=== PATIENT | male | born 1945 | race Caucasian/White ===

== ENCOUNTER → 2016-03-01 | Outpatient (CLI) | payer OTHER ==
[~2016-03-01] MED LIST: ASPEC325 PO; FRRG PO; GLC/500 PO; LISI-461 PO; MXZC25 PO; NAPR1TAB9 PO
[2016-03-01 17:45] LABS: BLOOD UREA NITROGEN 35 mg/dl (7-18); BUN/CREATININE RATIO 24.9 (10-20); CALCIUM 9.4 mg/dl (8.5-10.1); CARBON DIOXIDE 25 mmol/L (21-32); CHLORIDE 100 mmol/L (98-107); GLUCOSE 186 mg/dl (70-99); POTASSIUM 3.9 mmol/L (3.5-5.1); SODIUM 137 mmol/L (136-145)
[2016-03-02 05:52] LABS: ESTIMATED AVERAGE GLUCOSE 157 mg/dl; HA1C FLAG Normal (Normal)
== END | disposition home or self-care (01) ==
LOC: C.LABPVFM 11:00
PROVIDERS: ATTEND Family Medicine
DX: E11.9 Type 2 diabetes mellitus without complications (principal)

== ENCOUNTER → 2016-03-07 | Outpatient (CLI) | payer OTHER ==
[2016-03-07 12:19] LABS: BASO % 0.4 %; BASO ABS # 0.03 K/uL (0-0.2); COMPLETE YES; EOS % 0.7 %; HEMATOCRIT 41.8 % (42-52); IG% 0.3 %; LYMPH % 21.2 %; LYMPH ABS # 1.58 K/uL (1.2-3.4); MEAN CELL VOLUME 88.7 fL (80-100); MEAN CORPUSCULAR HGB CONC 34.9 g/dl (32-36); MEAN PLATELET VOLUME 9.9 fL (7.4-10.4); MONO % 7.8 %; NEUT % 69.6 %; PLATELET COUNT 347 K/uL (130-400); RED BLOOD COUNT 4.71 M/uL (4.7-6.1); WHITE BLOOD COUNT 7.44 K/uL (4.8-10.8)
[2016-03-07 12:47] LABS: RHEUMATOID FACTOR < 10.0 U/mL (0-15); URIC ACID 7.7 mg/dl (2.6-7.2)
== END | disposition home or self-care (01) ==
LOC: C.LABPVFM 10:10
PROVIDERS: ATTEND Nurse Practitioner
DX: M19.90 Unspecified osteoarthritis, unspecified site (principal)

== ENCOUNTER → 2017-01-08 | Outpatient (CLI) | payer OTHER ==
[2017-01-08 12:53] LABS: ESTIMATED AVERAGE GLUCOSE 177 mg/dl; HA1C FLAG Normal (Normal)
[2017-01-08 13:07] LABS: BLOOD UREA NITROGEN 20 mg/dl (7-18); BUN/CREATININE RATIO 17.2 (10-20); CARBON DIOXIDE 30 mmol/L (21-32); CHLORIDE 101 mmol/L (98-107); CHOLESTEROL 131 mg/dl (0-200); CREATININE 1.16 mg/dl (0.60-1.40); GLUCOSE 146 mg/dl (70-99); POTASSIUM 3.8 mmol/L (3.5-5.1); SODIUM 137 mmol/L (136-145)
[2017-01-08 13:10] LABS: CHOLESTEROL/HDL RATIO 2.6; HDL CHOLESTEROL 50 mg/dl; LDL CHOLESTEROL CALCULATED 61 mg/dl; TRIGLYCERIDES 99 mg/dl (0-150); VERY LOW DENSITY LIPOPROT CALC 20 mg/dl
== END | disposition home or self-care (01) ==
LOC: C.LABPVFM 07:42
PROVIDERS: ATTEND Nurse Practitioner
DX: E11.9 Type 2 diabetes mellitus without complications (principal); E78.00 Pure hypercholesterolemia, unspecified

== ENCOUNTER → 2017-07-05 | Outpatient (CLI) | payer OTHER ==
[2017-07-05 13:08] LABS: BLOOD UREA NITROGEN 13 mg/dl (7-18); CALCIUM 8.8 mg/dl (8.5-10.1); CARBON DIOXIDE 30 mmol/L (21-32); GLUCOSE 261 mg/dl (70-99); POTASSIUM 3.9 mmol/L (3.5-5.1); SODIUM 138 mmol/L (136-145)
[2017-07-05 13:25] LABS: HEMOGLOBIN A1C 8.5 % (4.5-5.6)
== END | disposition home or self-care (01) ==
LOC: C.LABPVFM 08:49
PROVIDERS: ATTEND Nurse Practitioner
DX: E11.9 Type 2 diabetes mellitus without complications (principal)

== ENCOUNTER 2018-11-26 18:24 | Observation (INO) ==
[2018-11-26] MEDS ORDERED: ASPIRIN CHEW 324 MG PO STA (18:47)
--- NOTE | 2018-11-26 18:47 | Emergency Department Note ---
Entered by Alona Jacques acting as a scribe for Simon Ackerman DO History of Present Illness General Chief complaint: Chest Pain Stated complaint: CHEST PAIN, BACK PAIN Time Seen by Provider: 11/26/18 18:30 Source: patient and family History of Present Illness Onset (ago): day(s) (2) Location: chest and left Radiation: back and other (left shoulder and left arm) Pain Consistency: + intermittent Maximum Pain Intensity: 4 Exacerbated By: + movement (walking) and + other (lying on his side) Associated symptoms: + denies other symptoms, + shortness of breath (with exertion) and + other (decreased sleep, abdominal pain, diarrhea) The patient is a 73 year old male who presents to the Emergency Room with complaints of intermittent left-sided chest pain beginning two days ago. The patient states the pain radiates into his left shoulder, left arm and back. He notes the pain is worse with walking, and lying on his side. He denies any similarity between his current pain and pain with his previous cardiac problems. The patient reports decreased sleep the past few nights, and shortness of breath with exertion. He also reports abdominal pain and diarrhea for the past several days. The patient's family member reports a history of an NM one year ago. She notes stents were placed at the time. The patient's family member states an EKG following the NM showed that the patient's heart was only functioning at approximately 30 percent. She also notes a recent change in the patient's medication one month ago intended to relieve the shortness of breath, but no change has been noted. 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 Jimenez. Home Medications Home Medications Medication Instructions Recorded Confirmed Type aspirin [Ecotrin Low Strength] 81 mg PO QAM #90 tab 12/29/17 11/26/18 Rx atorvastatin [Lipitor] 80 mg PO DAILY #30 tab 12/29/17 11/26/18 Rx metoprolol succinate [Toprol XL] 100 mg PO DAILY #30 tab 12/29/17 11/26/18 Rx nitroglycerin [Nitrostat] 0.4 mg SUBLINGUAL Q5M PRN #20 tab 12/29/17 11/26/18 Rx furosemide 20 mg tablet 20 mg PO DAILY #30 tab 07/23/18 11/26/18 Rx lisinopril 10 mg tablet 10 mg PO DAILY #90 tab 07/23/18 11/26/18 Rx metformin ER 500 mg 1,000 mg PO BID #360 tab 08/27/18 11/26/18 Rx tablet,extended release 24 hr sitagliptin 50 mg tablet 50 mg PO DAILY #90 tab 09/26/18 11/26/18 Rx clopidogrel 75 mg tablet 75 mg PO DAILY #90 tab 10/14/18 11/26/18 Rx triamcinolone acetonide 1 appln TOP BID PRN 11/26/18 11/26/18 History Allergies Allergy/AdvReac Type Severity Reaction Status Date / Time No Known Allergies Allergy Verified 10/14/18 08:56 Past Med/Surg History Medical History Multi-vessel coronary artery stenosis (Chronic) NSVT (nonsustained ventricular tachycardia) (Chronic) Ischemic cardiomyopathy (Chronic) Hypertension (Chronic) Diabetes (Chronic) ST elevation (STEMI) myocardial infarction (Resolved) Diabetes (Chronic) HTN (hypertension) (Chronic) Acute systolic CHF (congestive heart failure) (Resolved) Surgical History History of total left hip arthroplasty Family History Father Myocardial infarction Social History Preferred Language: Kazakh Communication Ability: Effective Visual Impairment: No Limitations Hearing Ability: Normal Clinical Quality Manager Required: No Beliefs That Will Affect Care: None Current Living Situation: Spouse Feels Safe at Home: Yes Smoking Status: Never smoker Hx Alcohol Use: No Hx Substance Use: No Review of Systems See HPI for pertinent positives & negatives. and A total of 10 systems reviewed and were otherwise negative Physical Exam Vital Signs Vital Signs - 24 hr 11/26/18 18:27 11/26/18 18:59 11/26/18 20:51 Temperature 36.8 C Temperature Source Oral Sepsis Recent Fever Within 48 Hours No Sepsis New/Unexplained Change in Mental Status No Sepsis Action Taken by Nursing No Action Required Pulse Rate 68 Pulse Rate [Apical] 75 70 Respiratory Rate 20 18 18 Respiratory Effort / Characteristics Spontaneous Blood Pressure 113/70 Blood Pressure [Left Arm] 123/80 110/76 Blood Pressure Mean 84 Blood Pressure Mean [Left Arm] 94 87 Blood Pressure Position Sitting Pulse Oximetry 100 97 93 Oxygen Delivery Method Room Air Room Air Room Air CONSTITUTIONAL/VITAL SIGNS: Reviewed / noted above. GENERAL: Non-toxic in appearance. INTEGUMENTARY: Warm, dry, and [place]. HEAD: Normocephalic. EYES: without scleral icterus or trauma. ENT/OROPHARYNX: clear and moist. LYMPHADENOPATHY/NECK: Is supple without lymphadenopathy or meningismus. RESPIRATORY: Lungs clear and equal. CARDIOVASCULAR: Regular rate and rhythm. GI/ABDOMEN: Soft and nontender. No organomegaly or pulsatile mass. No rebound or guarding. Normal bowel sounds. EXTREMITIES: Warm and well perfused. BACK: No CVA tenderness. NEUROLOGICAL: Intact without focal deficits. PSYCHIATRIC: normal affect. MUSCULOSKELETAL: Normally developed with good muscle tone. Course 1834: Past medical records reviewed. The patient was evaluated in room C11B. A complete history and physical exam was performed. 2000: Upon reevaluation, I discussed findings and results with the patient and his family. They verbalized agreement of the treatment plan. I spoke with Dr. Nieto of the [facility] Hospitalist Service. The patient will be evaluated for further management and care. Administered Medications Discontinued Medications Aspirin (Aspirin) 324 mg PO NOW STA Stop: 11/26/18 18:48 Last Admin: 11/26/18 18:58 Dose: 324 mg Documented by: [id number] Medical Decision Making Differential Diagnosis Differential diagnoses includes but is not limited to acute coronary syndrome, myocardial infarction, pericarditis, pulmonary embolus, aortic dissection, pneumonia, pneumothorax, musculoskeletal, shingles, esophageal. Medical Records Attestation: I reviewed the patient's medical records. Home Medications Current Medication List: was personally reviewed by me Laboratory Data Attestation: I reviewed the patient's lab results. Result diagrams: 11/26/18 18:42 11/26/18 18:42 Lab Results 11/26/18 11/26/18 11/26/18 Range/Units 18:42 18:42 18:42 WBC 8.16 (4.8-10.8) K/uL RBC 3.93 L (4.7-6.1) M/uL Hgb 11.2 L (14.0-18.0) g/dL Hct 33.5 L (42-52) % MCV 85.2 (80-100) fL MCH 28.5 (25-34) pg MCHC 33.4 (32-36) g/dL RDW Std Deviation 50.0 H (36.4-46.3) fL RDW Coeff of Kimberlee 15.8 H (11.5-14.5) % Plt Count 200 (130-400) K/uL MPV 10.7 H (7.4-10.4) fL Immature Gran % (Auto) 0.2 % Neut % (Auto) 72.0 % Lymph % (Auto) 15.6 % [place] % (Auto) 11.6 % Eos % (Auto) 0.4 % Baso % (Auto) 0.2 % Immature Gran # (Auto) 0.02 (0.00-0.02) K/uL Neut # (Auto) 5.87 (1.4-6.5) K/uL Lymph # (Auto) 1.27 (1.2-3.4) K/uL [place] # (Auto) 0.95 H (0.11-0.59) K/uL Eos # (Auto) 0.03 (0-0.5) K/uL Baso # (Auto) 0.02 (0-0.2) K/uL PT 13.5 H (9.0-12.0) Seconds INR 1.3 H (0.9-1.1) APTT 30.5 (21.0-31.0) Seconds PTT Ratio 1.1 Sodium 136 (136-145) mmol/L Potassium 3.8 (3.5-5.1) mmol/L Chloride 102 (98-107) mmol/L Carbon Dioxide 23 (21-32) mmol/L Anion Gap 11.0 (3-11) BUN 19 H (7-18) mg/dl Creatinine 0.98 (0.6-1.4) mg/dl Est Cr Clr Drug Dosing Not Reportable Est GFR ( Amer) 87.1 Est GFR (Non-Af Amer) 75.1 BUN/Creatinine Ratio 19.8 (10-20) Glucose 126 H (70-99) mg/dl Calcium 8.7 (8.5-10.1) mg/dl Total Bilirubin 0.9 (0.2-1) mg/dl AST 18 (15-37) U/L ALT 19 (12-78) U/L Alkaline Phosphatase 113 (45-117) U/L Troponin I 0.017 (0-0.045) ng/ml Total Protein 8.0 (6.4-8.2) gm/dl Albumin 3.3 L (3.4-5.0) gm/dl Globulin 4.7 H (2.5-4.0) gm/dl Albumin/Globulin Ratio 0.7 L (0.9-2) Lipase 202 (73-393) U/L Imaging Data Radiologist's Impression: Radiology results as stated below per my review and the radiologist's interpretation: XR chest 1V portable CLINICAL HISTORY: 73 years-old Male presenting with Chest Pain. TECHNIQUE: Portable upright AP view of the chest was obtained. COMPARISON: 12/26/2017. FINDINGS: Atherosclerosis of the aortic arch. Cardiac silhouette enlarged. Pulmonary vascular prominence is unchanged from prior. Increased right basilar opacity. No large pleural effusion or pneumothorax. Degenerative changes of the thoracic spine. Degenerative changes of the bilateral shoulders. Osteopenia suspected. Upper abdomen normal. IMPRESSION: 1. Right basilar opacity concerning for pneumonia or atelectasis. 2. Cardiomegaly. No advanced congestive change or pulmonary edema. Electronically signed by: Rudy Jackson M.D. 11/26/2018 7:28 PM ECG Data Attestation: I personally reviewed and interpreted this ECG as follows: Indication: chest pain Rate (beats per minute): 76 Rhythm: sinus rhythm Findings: + T-wave inversion (Lateral); no ST elevation Comparison ECG Date: from (12/28/2017) Change: no significant change Blood Pressure Blood Pressure Findings: Elevated blood pressure Blood Pressure Disposition: further management by hospitalist MILAGROS Mahoney This is a 73-year-old male who presents to the ED with a chief complaint of chest discomfort in the left chest that radiates into the back and left arm/shoulder. He also reports associated shortness of breath. He has had the s ymptoms for couple of days. The patient states that his symptoms seem to worsen with exertion and improved with rest. He states that he has also had a little nausea recently and a little diarrhea. He has history of NM, diabetes, A. fib and CAD. The patient also has ischemic cardiomyopathy with a decreased EF. The patient on my exam has normal vital signs. He is in no distress. He states that he is currently not having symptoms. The patient's EKG shows a sinus rhythm at a rate of 76 with some T wave inversions that appears similar to a previous EKG. CBC and complete metabolic panel were unremarkable. Troponin was 0.017. This is normal. Lipase was negative. Chest x-ray reveals a right basilar atelectasis versus pneumonia. He clinically does not have any symptoms suggestive of pneumonia. His symptoms are most consistent with unstable angina. Because of his past history and comorbidities, the patient will be seen by the hospitalist for further evaluation and care. He was given aspirin p.o. here. Impression & Plan Unstable angina pectoris Discharge Plan Visit Data Chief Complaint: Chest Pain Stated Complaint: CHEST PAIN, BACK PAIN ED Provider: Simon Ackerman Discharge Problem: Unstable angina pectoris Patient Disposition: Being Evaluated by Hospitalist Condition: Good Forms Stand Alone Forms: Call Back Authorization, [facility], Important Visit Information Prescriptions Prescriptions: No Action metformin 500 mg tablet extended release 24 hr 1,000 mg PO BID Qty: 360 RF: 1 Januvia 50 mg tablet 50 mg PO DAILY Qty: 90 RF: 3 clopidogrel 75 mg tablet 75 mg PO DAILY Qty: 90 RF: 3 furosemide 20 mg tablet 20 mg PO DAILY Qty: 30 RF: 0 lisinopril 10 mg tablet 10 mg PO DAILY Qty: 90 RF: 0 nitroglycerin [Nitrostat] 0.4 mg Tablet, Sublingual 0.4 mg Sublingual Q5M PRN (Reason: chest pain) Qty: 20 RF: 0 aspirin [Ecotrin Low Strength] 81 mg Tablet,Delayed Release (Dr/Ec) 81 mg PO QAM Qty: 90 RF: 3 metoprolol succinate [Toprol XL] 100 mg tablet extended release 24 hr 100 mg PO DAILY Qty: 30 RF: 5 atorvastatin [Lipitor] 80 mg tablet 80 mg PO DAILY Qty: 30 RF: 5 triamcinolone acetonide 0.1 % ointment 1 appln TOP BID PRN (Reason: BREAK OUT) RF: 0 Referrals Referrals: Aidee Gomez CRNP [Primary Care Provider] - The scribe's documentation has been prepared under my direction and personally reviewed by me in its entirety. I confirm that the note above accurately reflec ts all work, treatment, procedures, and medical decision making performed by me.
[2018-11-26 18:56] LABS: Basophils # (auto) 0.02 K/uL (0-0.2); Basophils % (auto) 0.2 %; Eosinophils # (auto) 0.03 K/uL (0-0.5); Eosinophils % (auto) 0.4 %; Hematocrit (blood only) 33.5 % (42-52); Hemoglobin 11.2 g/dL (14.0-18.0); Immature Granulocytes # (auto) 0.02 K/uL (0.00-0.02); Immature Granulocytes % (auto) 0.2 %; Lymphocytes # (auto) 1.27 K/uL (1.2-3.4); Lymphocytes % (auto) 15.6 %; Mean Corpuscular Hemoglobin 28.5 pg (25-34); Mean Corpuscular Hgb Conc 33.4 g/dL (32-36); Mean Corpuscular Volume 85.2 fL (80-100); Mean Platelet Volume 10.7 fL (7.4-10.4); Monocytes # (auto) 0.95 K/uL (0.11-0.59); Monocytes % (auto) 11.6 %; Neutrophils # (auto) 5.87 K/uL (1.4-6.5); Platelet Count 200 K/uL (130-400); RDW Coefficient of Variation 15.8 % (11.5-14.5); Red Blood Count 3.93 M/uL (4.7-6.1); White Blood Count 8.16 K/uL (4.8-10.8)
[2018-11-26 19:14] LABS: INR 1.3 (0.9-1.1); Partial Thromboplastin Ratio 1.1; Partial Thromboplastin Time 30.5 Seconds (21.0-31.0); Prothrombin Time 13.5 Seconds (9.0-12.0)
[2018-11-26 19:15] LABS: Alanine Aminotransferase 19 U/L (12-78); Albumin Level 3.3 gm/dl (3.4-5.0); Aspartate Aminotransferase 18 U/L (15-37); BUN Creatinine Ratio 19.8 (10-20); Blood Urea Nitrogen 19 mg/dl (7-18); Calcium 8.7 mg/dl (8.5-10.1); Carbon Dioxide 23 mmol/L (21-32); Chloride 102 mmol/L (98-107); Est GFR (African American) 87.1; Est GFR (Non-African American) 75.1; Glucose 126 mg/dl (70-99); Lipase 202 U/L (73-393); Potassium 3.8 mmol/L (3.5-5.1); Sodium 136 mmol/L (136-145)
[2018-11-26 19:20] LABS: Albumin Globulin Ratio 0.7 (0.9-2); Alkaline Phosphatase 113 U/L (45-117); Bilirubin,Total 0.9 mg/dl (0.2-1); Globulin 4.7 gm/dl (2.5-4.0); Troponin I 0.017 ng/ml (0-0.045)
--- NOTE | 2018-11-26 19:29 | XRay Report ---
XR chest 1V portable CLINICAL HISTORY: 73 years-old Male presenting with Chest Pain. TECHNIQUE: Portable upright AP view of the chest was obtained. COMPARISON: 12/26/2017. FINDINGS: Atherosclerosis of the aortic arch. Cardiac silhouette enlarged. Pulmonary vascular prominence is unc hanged from prior. Increased right basilar opacity. No large pleural effusion or pneumothorax. Degene rative changes of the thoracic spine. Degenerative changes of the bilateral shoulders. Osteopenia devyn pected. Upper abdomen normal. IMPRESSION: 1. Right basilar opacity concerning for pneumonia or atelectasis. 2. Cardiomegaly. No advanced congestive change or pulmonary edema. Electronically signed by: Rudy Jackson M.D. 11/26/2018 7:28 PM
[2018-11-26] MEDS ORDERED: NITROGLYCERIN SL 0.4 MG/TAB TAB SL PRN (21:30)
[2018-11-26] MEDS ORDERED: ONDANSETRON INJ 2 MG/ML 2 ML VIAL IV PRN (21:30)
[2018-11-26] MEDS ORDERED: ACETAMINOPHEN 325 MG TAB PO PRN (21:30)
[2018-11-26] MEDS ORDERED: PATIENT'S HEIGHT AND/OR WEIGHT NEEDED SCH (21:45)
[2018-11-26] MEDS ORDERED: ENOXAPARIN INJ 40 MG/0.4 ML SYR SQ SCH (22:00)
[2018-11-26] MEDS ORDERED: GLUCOSE 40% GEL 15 GM TUBE PO PRN (23:12)
[2018-11-26] MEDS ORDERED: GLUCOSE 10 TABS/TUBE PO PRN (23:12)
[2018-11-26] MEDS ORDERED: CARBOHYDRATES FOR HYPOGLYCEMIA PO PRN (23:12)
[2018-11-26] MEDS ORDERED: GLUCAGON FOR INJ 1 MG VIAL SQ PRN (23:12)
[2018-11-26] MEDS ORDERED: DEXTROSE 50% 50 ML SYRINGE IV PRN (23:12)
--- NOTE | 2018-11-26 23:39 | History & Physical Report ---
Date of Service November 26, 2018 Assessment & Plan (1) Chest pain: I suspect this is musculoskeletal chest pain as deep breathing and laying on his side worsens the pain. However given his cardiac history it is reasonable to rule and and acquire cardiology evaluation. Continue aspirin and Plavix. serial trops DVT prophylaxis = SCDs and Lovenox. (2) CAD (coronary artery disease): He follows with [facility] cardiology (3) Type II diabetes mellitus: Metformin will be held in event of requiring dye study. I will cover highs with sliding scale (4) Ischemic cardiomyopathy: EF is noted to be 30% (5) Hypertension: Continue home medications. History of Present Illness 73 y/o male presented to the ED with a 2 day history of left sided chest pain that radiated around the side to the posterior shoulder. It has not been associated with exertion. Deep breath seems to make it worse briefly. No diaphoresis, cough, or change in his chronic SOB. He has not been doing anything strenuous or repetitive with his upper extremities. On a separate issue, he has had intermittent abdominal pain and diarrhea over a few days. No nausea or vomiting. No fever or chills. He follows with [facility] cardiology as outpatient. . Primary Care Provider: VIVIAN English Allergies Allergy/AdvReac Type Severity Reaction Status Date / Time No Known Allergies Allergy Verified 11/26/18 21:11 Home Medications Home Medications Medication Instructions Recorded Confirmed Type aspirin [Ecotrin Low Strength] 81 mg PO QAM #90 tab 12/29/17 11/26/18 Rx atorvastatin [Lipitor] 80 mg PO DAILY #30 tab 12/29/17 11/26/18 Rx metoprolol succinate [Toprol XL] 100 mg PO DAILY #30 tab 12/29/17 11/26/18 Rx nitroglycerin [Nitrostat] 0.4 mg SUBLINGUAL Q5M PRN #20 tab 12/29/17 11/26/18 Rx furosemide 20 mg tablet 20 mg PO DAILY #30 tab 07/23/18 11/26/18 Rx lisinopril 10 mg tablet 10 mg PO DAILY #90 tab 07/23/18 11/26/18 Rx metformin ER 500 mg 1,000 mg PO BID #360 tab 08/27/18 11/26/18 Rx tablet,extended release 24 hr clopidogrel 75 mg tablet 75 mg PO DAILY #90 tab 10/14/18 11/26/18 Rx triamcinolone acetonide 1 appln TOP BID PRN 11/26/18 11/26/18 History Past Med/Surg History Medical History Multi-vessel coronary artery stenosis (Chronic) NSVT (nonsustained ventricular tachycardia) (Chronic) Ischemic cardiomyopathy (Chronic) Hypertension (Chronic) Diabetes (Chronic) ST elevation (STEMI) myocardial infarction (Resolved) Diabetes (Chronic) HTN (hypertension) (Chronic) Acute systolic CHF (congestive heart failure) (Resolved) Surgical History History of total left hip arthroplasty Family History Father Myocardial infarction Social History Preferred Language: Lao Communication Ability: Effective Visual Impairment: No Limitations Hearing Ability: Normal Tag Press Operator Required: No Beliefs That Will Affect Care: None Current Living Situation: Spouse Other Information That Helps Us Care for You: No Feels Safe at Home: Yes Safety Concerns: Feels Safe At This Time Smoking Status: Never smoker Do You Dip or Chew Tobacco: No ; Second Hand E xposure: No ; Tobacco Cessation Education Requested by Patient: No Hx Alcohol Use: No Hx Substance Use: No Review of Systems Review of Systems: NEEDS EDITING Constitutional- no fever; no weight loss Eyes- no acute visual changes ENT- no sinus drainage; no pharyngitis Pulmonary- no cough, no wheezing, no change in chronic shortness of breath Cardiac- See HPI GI- no nausea, no vomiting, no melena, no hematochezia - no dysuria, no hematuria Musculoskeletal- no arthralgias, no myalgias Derm- no rashes, no new skin lesions. Hematologic- no unusual bruising, no unusual bleeding Lymphatics- no adenopathy Endocrine- no polyuria or polydipsia; no heat or cold intolerance Neuro- no headaches, no focal neurologic symptoms Psych- no anxiety, no depression Physical Exam Physical Exam: NEEDS EDITING General- adult male, NAD. Head- atraumatic Eyes- PERRL, EOMI, anicteric ENT- oropharynx clear Neck- supple, no JVD, no adenopathy, no thyromegaly. Lungs- clear to auscultation no rales, rhonchi, or wheezes. Heart- regular rhythm; no murmur, no gallop, no rub appreciated Abdomen- normal bowel sounds, soft, nontender. Extremities- no pretibial edema, no calf tenderness; peripheral pulses intact Neuro- alert, oriented x 3; PERRL, EOMI; rock worker II-XII grossly intact, Non-focal. Skin- warm & dry, No rash along left chest dermatome. Results & Data Vital Signs (Past 12 Hours) Vital Signs Temp Pulse Pulse Resp BP BP Pulse Ox 11/26/18 21:18 36.6 C 74 20 127/86 99 11/26/18 20:51 70 18 110/76 93 11/26/18 18:59 75 18 123/80 97 11/26/18 18:27 36.8 C 68 20 113/70 100 Laboratory Results Laboratory Results WBC 8.16 K/uL (4.8-10.8) 11/26/18 18:42 RBC 3.93 M/uL (4.7-6.1) L 11/26/18 18:42 Hgb 11.2 g/dL (14.0-18.0) L 11/26/18 18:42 Hct 33.5 % (42-52) L 11/26/18 18:42 MCV 85.2 fL (80-100) 11/26/18 18:42 MCH 28.5 pg (25-34) 11/26/18 18:42 MCHC 33.4 g/dL (32-36) 11/26/18 18:42 RDW Std Deviation 50.0 fL (36.4-46.3) H 11/26/18 18:42 RDW Coeff of Kimberlee 15.8 % (11.5-14.5) H 11/26/18 18:42 Plt Count 200 K/uL (130-400) 11/26/18 18:42 MPV 10.7 fL (7.4-10.4) H 11/26/18 18:42 Immature Gran % (Auto) 0.2 % 11/26/18 18:42 Neut % (Auto) 72.0 % 11/26/18 18:42 Lymph % (Auto) 15.6 % 11/26/18 18:42 [place] % (Auto) 11.6 % 11/26/18 18:42 Eos % (Auto) 0.4 % 11/26/18 18:42 Baso % (Auto) 0.2 % 11/26/18 18:42 Immature Gran # (Auto) 0.02 K/uL (0.00-0.02) 11/26/18 18:42 Neut # (Auto) 5.87 K/uL (1.4-6.5) 11/26/18 18:42 Lymph # (Auto) 1.27 K/uL (1.2-3.4) 11/26/18 18:42 [place] # (Auto) 0.95 K/uL (0.11-0.59) H 11/26/18 18:42 Eos # (Auto) 0.03 K/uL (0-0.5) 11/26/18 18:42 Baso # (Auto) 0.02 K/uL (0-0.2) 11/26/18 18:42 PT 13.5 Seconds (9.0-12.0) H 11/26/18 18:42 INR 1.3 (0.9-1.1) H 11/26/18 18:42 APTT 30.5 Seconds (21.0-31.0) 11/26/18 18:42 PTT Ratio 1.1 11/26/18 18:42 Sodium 136 mmol/L (136-145) 11/26/18 18:42 Potassium 3.8 mmol/L (3.5-5.1) 11/26/18 18:42 Chloride 102 mmol/L (98-107) 11/26/18 18:42 Carbon Dioxide 23 mmol/L (21-32) 11/26/18 18:42 Anion Gap 11.0 (3-11) 11/26/18 18:42 BUN 19 mg/dl (7-18) H 11/26/18 18:42 Creatinine 0.98 mg/dl (0.6-1.4) 11/26/18 18:42 Est Cr Clr Drug Dosing Not Reportable 11/26/18 18:42 Est GFR ( Amer) 87.1 11/26/18 18:42 Est GFR (Non-Af Amer) 75.1 11/26/18 18:42 BUN/Creatinine Ratio 19.8 (10-20) 11/26/18 18:42 Glucose 126 mg/dl (70-99) H 11/26/18 18:42 POC Glucose 119 (70-99) H 11/26/18 21:52 Calcium 8.7 mg/dl (8.5-10.1) 11/26/18 18:42 Total Bilirubin 0.9 mg/dl (0.2-1) 11/26/18 18:42 AST 18 U/L (15-37) 11/26/18 18:42 ALT 19 U/L (12-78) 11/26/18 18:42 Alkaline Phosphatase 113 U/L (45-117) 11/26/18 18:42 Troponin I 0.017 ng/ml (0-0.045) 11/26/18 18:42 Total Protein 8.0 gm/dl (6.4-8.2) 11/26/18 18:42 Albumin 3.3 gm/dl (3.4-5.0) L 11/26/18 18:42 Globulin 4.7 gm/dl (2.5-4.0) H 11/26/18 18:42 Albumin/Globulin Ratio 0.7 (0.9-2) L 11/26/18 18:42 Lipase 202 U/L (73-393) 11/26/18 18:42 Code Status & VTE Plan VTE Prophylaxis Plan VTE Prophylaxis will be ordered: Yes PG Care Time/CCT Total # of Minutes Spent Total Time Spent: 65 Total Time Spent with Patient: Total time spent is greater than 50% in coordination of care (as documented) at patient's floor/unit and/or counseling patient: (1) Hypertension Hypertension type: essential hypertension Qualified Code(s): I10 - Essential (primary) hypertension
[2018-11-27 04:37] LABS: Hematocrit (blood only) 33.7 % (42-52); Hemoglobin 11.4 g/dL (14.0-18.0); Mean Corpuscular Hemoglobin 29.2 pg (25-34); Mean Corpuscular Hgb Conc 33.8 g/dL (32-36); Mean Corpuscular Volume 86.4 fL (80-100); Mean Platelet Volume 10.5 fL (7.4-10.4); Platelet Count 175 K/uL (130-400); RDW Coefficient of Variation 15.8 % (11.5-14.5); RDW Standard Deviation 50.2 fL (36.4-46.3); White Blood Count 7.23 K/uL (4.8-10.8)
[2018-11-27 04:54] LABS: BUN Creatinine Ratio 20.2 (10-20); Calcium 8.4 mg/dl (8.5-10.1); Creatinine Clr Calc Pharmacy 64.5 ml/min; Est GFR (Non-African American) 74.2; Magnesium 1.7 mg/dl (1.8-2.4); Potassium 3.4 mmol/L (3.5-5.1)
[2018-11-27 04:59] LABS: Troponin I 0.02 ng/ml (0-0.045)
[2018-11-27] MEDS: INSULIN ASPART 100 UNITS/ML 3 ML PEN SC SCH ×3 (08:00→18:00)
[2018-11-27] MEDS ORDERED: ASPIRIN 81 MG ECTAB PO SCH (09:00)
[2018-11-27] MEDS ORDERED: FUROSEMIDE 20 MG TAB PO SCH (09:00)
[2018-11-27] MEDS ORDERED: lisinopriL 10 MG TAB PO SCH (09:00)
[2018-11-27] MEDS ORDERED: ATORVASTATIN 40 MG TAB PO SCH (09:00)
[2018-11-27] MEDS ORDERED: METOPROLOL SUCC 50MG EXT REL TAB PO SCH (09:00)
[2018-11-27] MEDS ORDERED: CLOPIDOGREL BISULFATE 75 MG TAB PO SCH (09:00)
[2018-11-27] MEDS: POTASSIUM CHLORIDE 20 MEQ TABCR PO SCH ×2 (09:02→10:38)
--- NOTE | 2018-11-27 09:36 | Cardiology Consultation ---
Date of Consultation November 27, 2018 Assessment & Plan (1) Chest pain: 2. Multivessel coronary artery disease post anterior NV prior PCI, known [employer] of RCA 3. Ischemic cardiomyopathy/chronic systolic heart failureEF 30 to 35% 4. Type 2 diabetes Patient here with atypical chest pain. No evidence of coronary ischemia. Suspicion for ACS is very low and do not feel additional cardiac testing is necessary at this time. On exam appears well-perfused without significant congestion, continue current maintenance diuretics. From a cardiac standpoint okay for discharge when other medical issues resolved. Home on his DAPT with aspirin, clopidogrel. Continue GDMT with Toprol-XL, lisinopril. Routine scheduled cardiology follow-up. Thank you for allowing us to participate in the care of this patient. Please contact with any questions. History of Present Illness Attending Physician: Sophia Mcintosh, History of Present Illness Mr. Cedeno is a very pleasant 73-year-old man with a history of coronary artery disease post anterior STEMI 12/2017 known to me from prior hospitalization outpatient setting here with chest pain. Prior anterior NV treated with primary PCI with 2 GEOVANNA to ostial to mid LAD with angioplasty to diagonal. Noted that time to have RCA [employer]. Has persistent severe LV dysfunction with EF 30 to 35% and inferior wall motion of normality. Closely followed for chronic systolic heart failure on modest diuretics. Previously declined ICD. 2 days prior to admission developed central chest pain radiating around left side to left shoulder. Began at rest at night. Pain positional worse with lying flat and with coughing. Pain largely constant for more than 24 hours before presenting to ED. Pain different than what previously experienced with NV, the pain more diffuse across his chest. No change to chronic shortness of breath (baseline NYHA class II equivalent symptoms). Denies fevers, chills. Does have nonproductive cough. No new lower extremity swelling, orthopnea. Weight stable from last visit. On admission chest x-ray with questionable right basilar opacity atelectasis versus pneumonia. EKG unchanged with sinus rhythm, lateral T wave inversions and prior anterior infarct. Troponin negative x2. Telemetry unremarkable. Allergies Allergy/AdvReac Type Severity Reaction Status Date / Time No Known Allergies Allergy Verified 11/26/18 21:11 Home Medications Home Medications Medication Instructions Recorded Confirmed Type aspirin [Ecotrin Low Strength] 81 mg PO QAM #90 tab 12/29/17 11/26/18 Rx atorvastatin [Lipitor] 80 mg PO DAILY #30 tab 12/29/17 11/26/18 Rx metoprolol succinate [Toprol XL] 100 mg PO DAILY #30 tab 12/29/17 11/26/18 Rx nitroglycerin [Nitrostat] 0.4 mg SUBLINGUAL Q5M PRN #20 tab 12/29/17 11/26/18 Rx furosemide 20 mg tablet 20 mg PO DAILY #30 tab 07/23/18 11/26/18 Rx lisinopril 10 mg tablet 10 mg PO DAILY #90 tab 07/23/18 11/26/18 Rx metformin ER 500 mg 1,000 mg PO BID #360 tab 08/27/18 11/26/18 Rx tablet,extended release 24 hr clopidogrel 75 mg tablet 75 mg PO DAILY #90 tab 10/14/18 11/26/18 Rx triamcinolone acetonide 1 appln TOP BID PRN 11/26/18 11/26/18 History Patient History Medical History Multi-vessel coronary artery stenosis (Chronic) NSVT (nonsustained ventricular tachycardia) (Chronic) Ischemic cardiomyopathy (Chronic) Hypertension (Chronic) Diabetes (Chronic) ST elevation (STEMI) myocardial infarction (Resolved) Diabetes (Chronic) HTN (hypertension) (Chronic) Acute systolic CHF (congestive heart failure) (Resolved) Surgical History History of total left hip arthroplasty Family History Father Myocardial infarction Social History Preferred Language: Algerian Communication Ability: Effective Visual Impairment: No Limitations Hearing Ability: Normal [employer] Required: No Beliefs That Will Affect Care: None Current Living Situation: Spouse Other Information That Helps Us Care for You: No Feels Safe at Home: Yes Safety Concerns: Feels Safe At This Time Smoking Status: Never smoker Do You Dip or Chew Tobacco: No ; Second Hand Exposure: No ; Tobacco Cessation Education Requested by Patient: No Hx Alcohol Use: No Hx Substance Use: No Review of Systems Review of Systems: All systems reviewed & are unremarkable except as noted in HPI & below Physical Exam Physical Exam: General: Comfortable, no acute distress Eyes: Sclerae anicteric, extraocular movements intact HENT: Oropharynx clear mucous membranes moist Neck: Normal carotid upstrokes, no bruits. No JVD. Lungs: Minimal crackles at right base otherwise clear, no wheezes Cardiac: Regular rate and rhythm, no murmurs Vascular: 2+ radial, DP and PT pulses. Abdomen: Soft, nontender, nondistended, positive bowel sounds. Extremities: Well perfused, no peripheral edema Skin: No rashes or lesions. Neuro: Nonfocal Psych: Alert orient x3, normal affect and mood Results & Data Vital Signs (Past 12 Hours) Vital Signs Temp Pulse Pulse Resp BP Pulse Ox 11/27/18 08:26 98.6 F 94 H 18 144/95 H 95 11/27/18 08:00 86 11/27/18 03:25 97.7 F 82 19 151/98 H 94 11/26/18 23:25 98.2 F 71 18 117/76 95 PG Care Time/CCT Total # of Minutes Spent Total Time Spent with Patient: Total time spent is greater than 50% in coordination of care (as documented) at patient's floor/unit and/or counseling patient:
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
== END 2018-11-27 18:41 | disposition home or self-care (01) ==
LOC: ED 18:24 → 2S 18:24 → SUATTDRO 20:34 → 2S 21:10

== ENCOUNTER 2019-05-02 15:20 | Inpatient (IN) ==
[2019-05-02] MEDS ORDERED: ALBUT/IPRATROP 3MG/0.5MG NEB 3 ML VIAL NEB STA (16:20)
--- NOTE | 2019-05-02 16:50 | Emergency Department Note ---
History of Present Illness General Chief complaint: Shortness of Breath/Dyspnea Stated complaint: SOB,COUGH,DOC REFERRED Time Seen by Provider: 05/02/19 16:05 Source: patient Mode of arrival: ambulatory Limitations: no limitations History of Present Illness Provider complaint: Shortness of breath Onset (ago): week(s) Location: chest Radiation: non-radiation Severity: mild Pain Consistency: + constant Maximum Pain Intensity: 1 Current Pain Intensity: 0 Quality: + other (tightness) Relieved By: + none Exacerbated By: + movement Associated symptoms: + cough, + shortness of breath and + weakness; no nausea/vomiting Treatments prior to arrival: none The patient is a pleasant 74-year-old gentleman with a past medical history of CAD, diabetes, A. fib, ischemic cardiomyopathy with EF of 30% who presents emergency department with ongoing shortness of breath for the past several weeks with question of increased weight gain. Patient reports possible weight gain. He denies fevers or chills. He does report mild congestion with sputum production. He denies any recent travel. He denies nausea, vomiting, diarrhea. Home Medications Home Medications Medication Instructions Recorded Confirmed Type aspirin [Ecotrin Low Strength] 81 mg PO QAM #90 tab 12/29/17 05/02/19 Rx nitroglycerin [Nitrostat] 0.4 mg SUBLINGUAL Q5M PRN #20 tab 12/29/17 05/02/19 Rx clopidogrel 75 mg tablet 75 mg PO DAILY #90 tab 10/14/18 05/02/19 Rx atorvastatin 80 mg tablet 80 mg PO DAILY #90 tab 01/01/19 05/02/19 Rx metoprolol succinate 100 mg 100 mg PO DAILY #90 tab 01/01/19 05/02/19 Rx tablet,extended release 24 hr triamcinolone acetonide 0.1 % 1 appln TOP BID #30 gm 02/04/19 05/02/19 Rx topical cream furosemide 40 mg tablet 40 mg PO DAILY tab 02/26/19 05/02/19 History sacubitril 24 mg-valsartan 26 mg 1 tab PO BID #60 tab 02/26/19 05/02/19 Rx tablet isosorbide mononitrate 30 mg 30 mg PO DAILY #90 tab 04/28/19 05/02/19 Rx tablet,extended release 24 hr metformin 500 mg tablet,extended 1,000 mg PO BID #360 tab 04/28/19 05/02/19 Rx release 24 hr Allergies Allergy/AdvReac Type Severity Reaction Status Date / Time No Known Drug Allergies Allergy Verified 05/02/19 10:39 Past Med/Surg History Medical History Acute systolic CHF (congestive heart failure) (Resolved) Diabetes (Chronic) Diabetes (Chronic) Dyspnea on exertion (Acute) HTN (hypertension) (Chronic) Hypertension (Chronic) Infective dermatitis (Acute) Ischemic cardiomyopathy (Chronic) Multi-vessel coronary artery stenosis (Chronic) NSVT (nonsustained ventricular tachycardia) (Chronic) Peripheral neuropathy (Chronic) ST elevation (STEMI) myocardial infarction (Resolved) Surgical History History of cardiac catheterization (Inactive) History of hip replacement (Inactive) History of inguinal hernia repair (Inactive) History of total left hip arthroplasty Family History Father Myocardial infarction Denies family history of Ovarian cancer Prostate cancer Breast cancer Colorectal cancer Social History Preferred Language: Irish Communication Ability: Effective Visual Impairment: No Limitations Hearing Ability: Normal Passport Support Associate Required: No Beliefs That Will Affect Care: None marital status: Current Living Situation: Spouse Feels Safe at Home: Yes Smoking Status: Never smoker Second Hand Exposure: No ; Hx Alcohol Use: No Hx Substance Use: No Review of Systems See HPI for pertinent positives and negatives. A total of ten systems were reviewed and were otherwise negative. Physical Exam Vital Signs Vital Signs - 24 hr 05/02/19 15:21 05/02/19 15:31 05/02/19 15:40 Temperature 36.6 C Temperature Source Oral Pulse Rate 88 73 74 Pulse Rate [Left] Pulse Rate from SpO2 Sensor 76 75 Respiratory Rate 20 16 18 Respiratory Effort / Characteristics Blood Pressure 117/80 Blood Pressure [Right Arm] Blood Pressure Mean 92 Blood Pressure Mean [Right Arm] Blood Pressure Position [Right Arm] Pulse Oximetry 95 94 92 Oxygen Delivery Method Room Air Nasal Cannula Nasal Cannula Oxygen Flow Rate 2 2 Sepsis Recent Fever Within 48 Hours No Sepsis New/Unexplained Change in Mental Status No Sepsis Action Taken by Nursing No Action Required 05/02/19 15:50 05/02/19 16:00 05/02/19 16:10 Temperature Temperature Source Pulse Rate 70 73 72 Pulse Rate [Left] Pulse Rate from SpO2 Sensor 70 75 73 Respiratory Rate 12 12 18 Respiratory Effort / Characteristics Blood Pressure Blood Pressure [Right Arm] Blood Pressure Mean Blood Pressure Mean [Right Arm] Blood Pressure Position [Right Arm] Pulse Oximetry 89 L 94 90 Oxygen Delivery Method Nasal Cannula Nasal Cannula Nasal Cannula Oxygen Flow Rate 2 2 2 Sepsis Recent Fever Within 48 Hours Sepsis New/Unexplained Change in Mental Status Sepsis Action Taken by Nursing 05/02/19 16:12 05/02/19 16:14 05/02/19 16:20 Temperature Temperature Source Pulse Rate 72 71 69 Pulse Rate [Left] 70 Pulse Rate from SpO2 Sensor 72 73 Respiratory Rate 20 20 20 Respiratory Effort / Characteristics Spontaneous Blood Pressure 102/75 Blood Pressure [Right Arm] 102/75 Blood Pressure Mean 81 Blood Pressure Mean [Right Arm] 84 Blood Pressure Position [Right Arm] Lying Pulse Oximetry 97 94 99 Oxygen Delivery Method Nasal Cannula Nasal Cannula Nasal Cannula Oxygen Flow Rate 2 2 2 Sepsis Recent Fever Within 48 Hours Sepsis New/Unexplained Change in Mental Status Sepsis Action Taken by Nursing 05/02/19 16:30 05/02/19 16:40 05/02/19 16:45 Temperature Temperature Source Pulse Rate 71 73 Pulse Rate [Left] 75 Pulse Rate from SpO2 Sensor 70 77 Respiratory Rate 18 28 H 20 Respiratory Effort / Characteristics Non-Labored Spontaneous Blood Pressure Blood Pressure [Right Arm] Blood Pressure Mean Blood Pressure Mean [Right Arm] Blood Pressure Position [Right Arm] Pulse Oximetry 100 100 98 Oxygen Delivery Method Nasal Cannula Nasal Cannula Nasal Cannula Oxygen Flow Rate 2 2 2.5 Sepsis Recent Fever Within 48 Hours Sepsis New/Unexplained Change in Mental Status Sepsis Action Taken by Nursing 05/02/19 16:50 05/02/19 17:00 05/02/19 17:10 Temperature Temperature Source Pulse Rate 72 68 71 Pulse Rate [Left] Pulse Rate from SpO2 Sensor 70 Respiratory Rate 21 21 23 Respiratory Effort / Characteristics Blood Pressure Blood Pressure [Right Arm] Blood Pressure Mean Blood Pressure Mean [Right Arm] Blood Pressure Position [Right Arm] Pulse Oximetry 99 Oxygen Delivery Method Nasal Cannula Nasal Cannula Nasal Cannula Oxygen Flow Rate 2 2 2 Sepsis Recent Fever Within 48 Hours Sepsis New/Unexplained Change in Mental Status Sepsis Action Taken by Nursing 05/02/19 17:15 05/02/19 17:17 05/02/19 17:20 Temperature Temperature Source Pulse Rate 70 72 Pulse Rate [Left] 70 Pulse Rate from SpO2 Sensor 68 70 Respiratory Rate 18 18 17 Respiratory Effort / Characteristics Non-Labored Spontaneous Blood Pressure 106/74 Blood Pressure [Right Arm] 106/74 Blood Pressure Mean 78 Blood Pressure Mean [Right Arm] 84 Blood Pressure Position [Right Arm] Lying Pulse Oximetry 99 99 99 Oxygen Delivery Method Nasal Cannula Nasal Cannula Nasal Cannula Oxygen Flow Rate 2 2 2 Sepsis Recent Fever Within 48 Hours Sepsis New/Unexplained Change in Mental Status Sepsis Action Taken by Nursing 05/02/19 17:30 05/02/19 17:40 05/02/19 17:45 Temperature Temperature Source Pulse Rate 68 68 75 Pulse Rate [Left] Pulse Rate from SpO2 Sensor 70 70 72 Respiratory Rate 22 7 L 19 Respiratory Effort / Characteristics Blood Pressure 113/77 Blood Pressure [Right Arm] Blood Pressure Mean 90 Blood Pressure Mean [Right Arm] Blood Pressure Position [Right Arm] Pulse Oximetry 99 100 99 Oxygen Delivery Method Nasal Cannula Nasal Cannula Nasal Cannula Oxygen Flow Rate 2 2 2 Sepsis Recent Fever Within 48 Hours Sepsis New/Unexplained Change in Mental Status Sepsis Action Taken by Nursing 05/02/19 17:50 05/02/19 18:00 05/02/19 18:01 Temperature Temperature Source Pulse Rate 75 74 74 Pulse Rate [Left] Pulse Rate from SpO2 Sensor 77 76 74 Respiratory Rate 15 21 12 Respiratory Effort / Characteristics Blood Pressure 114/85 Blood Pressure [Right Arm] Blood Pressure Mean 88 Blood Pressure Mean [Right Arm] Blood Pressure Position [Right Arm] Pulse Oximetry 100 94 99 Oxygen Delivery Method Nasal Cannula Nasal Cannula Nasal Cannula Oxygen Flow Rate 2 2 2 Sepsis Recent Fever Within 48 Hours Sepsis New/Unexplained Change in Mental Status Sepsis Action Taken by Nursing 05/02/19 18:10 05/02/19 18:14 05/02/19 18:20 Temperature Temperature Source Pulse Rate 73 73 Pulse Rate [Left] 81 Pulse Rate from SpO2 Sensor 72 91 H Respiratory Rate 15 17 18 Respiratory Effort / Characteristics Spontaneous Blood Pressure Blood Pressure [Right Arm] 114/85 Blood Pressure Mean Blood Pressure Mean [Right Arm] 94 Blood Pressure Position [Right Arm] Lying Pulse Oximetry 97 96 96 Oxygen Delivery Method Nasal Cannula Nasal Cannula Nasal Cannula Oxygen Flow Rate 2 2 2 Sepsis Recent Fever Within 48 Hours Sepsis New/Unexplained Change in Mental Status Sepsis Action Taken by Nursing 05/02/19 18:30 05/02/19 18:31 05/02/19 18:40 Temperature Temperature Source Pulse Rate 74 71 72 Pulse Rate [Left] 82 Pulse Rate from SpO2 Sensor 70 Respiratory Rate 20 15 Respiratory Effort / Characteristics Spontaneous Blood Pressure 125/88 Blood Pressure [Right Arm] 125/88 Blood Pressure Mean 97 Blood Pressure Mean [Right Arm] 100 Blood Pressure Position [Right Arm] Lying Pulse Oximetry 96 92 Oxygen Delivery Method Nasal Cannula Nasal Cannula Nasal Cannula Oxygen Flow Rate 2 2 2 Sepsis Recent Fever Within 48 Hours Sepsis New/Unexplained Change in Mental Status Sepsis Action Taken by Nursing 05/02/19 18:50 05/02/19 19:00 05/02/19 19:01 Temperature Temperature Source Pulse Rate 75 75 86 Pulse Rate [Left] Pulse Rate from SpO2 Sensor 75 72 77 Respiratory Rate 22 22 22 Respiratory Effort / Characteristics Blood Pressure 117/91 Blood Pressure [Right Arm] Blood Pressure Mean 96 Blood Pressure Mean [Right Arm] Blood Pressure Position [Right Arm] Pulse Oximetry 92 100 97 Oxygen Delivery Method Nasal Cannula Nasal Cannula Nasal Cannula Oxygen Flow Rate 2 2 2 Sepsis Recent Fever Within 48 Hours Sepsis New/Unexplained Change in Mental Status Sepsis Action Taken by Nursing 05/02/19 19:10 05/02/19 19:20 05/02/19 19:30 Temperature Temperature Source Pulse Rate 73 62 76 Pulse Rate [Left] Pulse Rate from SpO2 Sensor 76 65 81 Respiratory Rate 21 9 L 22 Respiratory Effort / Characteristics Blood Pressure 112/91 Blood Pressure [Right Arm] Blood Pressure Mean 97 Blood Pressure Mean [Right Arm] Blood Pressure Position [Right Arm] Pulse Oximetry 97 96 95 Oxygen Delivery Method Nasal Cannula Nasal Cannula Nasal Cannula Oxygen Flow Rate 2 2 2 Sepsis Recent Fever Within 48 Hours Sepsis New/Unexplained Change in Mental Status Sepsis Action Taken by Nursing 05/02/19 19:31 05/02/19 19:40 05/02/19 19:50 Temperature Temperature Source Pulse Rate 69 72 Pulse Rate [Left] Pulse Rate from SpO2 Sensor 70 Respiratory Rate 20 22 27 H Respiratory Effort / Characteristics Blood Pressure Blood Pressure [Right Arm] Blood Pressure Mean Blood Pressure Mean [Right Arm] Blood Pressure Position [Right Arm] Pulse Oximetry 98 Oxygen Delivery Method Nasal Cannula Room Air Room Air Oxygen Flow Rate 2 Sepsis Recent Fever Within 48 Hours Sepsis New/Unexplained Change in Mental Status Sepsis Action Taken by Nursing GENERAL: Awake, alert, fatigued-appearing, in no distress HENT: Normocephalic, atraumatic. Oropharynx unremarkable. EYES: Normal conjunctiva. Sclera non-icteric. NECK: Supple. No nuchal rigidity. FROM. No JVD. RESPIRATORY: Diminished BS at bases. Scant intermittent wheeze. CARDIAC: Regular rate, normal rhythm. Extremities warm and well perfused. Pulses equal. ABDOMEN: Soft, non-distended. No tenderness to palpation. No rebound or guarding. No masses. RECTAL: Deferred. MUSCULOSKELETAL: Chest examination reveals no tenderness. The back is symmetrical on inspection without obvious abnormality. There is no CVA tenderness to palpation. No joint edema. LOWER EXTREMITIES: Calves are equal size bilaterally and non-tender. No edema. No discoloration. NEURO: Normal sensorium. No sensory or motor deficits noted. SKIN: No rash or jaundice noted. Course Administered Medications Heparin Sodium (Porcine) (Heparin Sodium (Porcine)) 5,000 units SQ Q8 DOUG Stop: 06/01/19 23:52 Last Admin: 05/03/19 00:36 Dose: 5,000 units Documented by: [id number] Cosigned by: [id number] Sacubitril/Valsartan (Entresto 24/26mg) 1 tab PO BID DOUG Stop: 06/01/19 23:52 Last Admin: 05/03/19 00:36 Dose: 1 tab Documented by: [id number] Triamcinolone Acetonide (Kenalog 0.1%) 1 appln TOP BID DOUG Stop: 06/01/19 23:52 Last Admin: 05/03/19 00:36 Dose: 1 appln Documented by: [id number] Discontinued Medications Albuterol (Duoneb) 3 ml NEB NOW STA Stop: 05/02/19 16:21 Last Admin: 05/02/19 16:44 Dose: 3 ml Documented by: [id number] Furosemide (Lasix) 40 mg IV NOW STA Stop: 05/02/19 18:07 Last Admin: 05/02/19 18:28 Dose: 40 mg Documented by: [id number] Magnesium Sulfate/Dextrose (Magnesium Sulfate / D5w) 1 gm in 100 mls @ 100 mls/hr IV ONE ONE Stop: 05/02/19 19:05 Last Infusion: 05/02/19 19:32 Dose: 0 mls/hr Documented by: [id number] Admin: 05/02/19 18:28 Dose: 100 mls/hr Documented by: [id number] Potassium Chloride (Klor-Con M20) 40 meq PO NOW STA Stop: 05/02/19 18:07 Last Admin: 05/02/19 18:28 Dose: 40 meq Documented by: [id number] Medical Decision Making Differential Diagnosis Reactive airway disease, pneumonia, pneumothorax, COPD, CHF, infections, cardiac ischemia, pulmonary embolism, musculoskeletal, gastrointestinal, as well as other pathologies. Medical Records Attestation: I reviewed the patient's medical records. Home Medications Current Medication List: was personally reviewed by me Laboratory Data Attestation: I reviewed the patient's lab results. Result diagrams: 05/02/19 17:10 05/02/19 17:10 Lab Results 05/02/19 05/02/19 05/02/19 Range/Units 16:10 17:10 17:10 WBC 5.24 (4.8-10.8) K/uL RBC 3.78 L (4.7-6.1) M/uL Hgb 10.8 L (14.0-18.0) g/dL Hct 33.7 L (42-52) % MCV 89.2 (80-100) fL MCH 28.6 (25-34) pg MCHC 32.0 (32-36) g/dL RDW Std Deviation 60.0 H (36.4-46.3) fL RDW Coeff of Kimberlee 18.7 H (11.5-14.5) % Plt Count 240 (130-400) K/uL MPV 10.8 H (7.4-10.4) fL Immature Gran % (Auto) 0.0 % Neut % (Auto) 75.5 % Lymph % (Auto) 13.4 % Bates % (Auto) 10.3 % Eos % (Auto) 0.6 % Baso % (Auto) 0.2 % Immature Gran # (Auto) 0.00 (0.00-0.02) K/uL Neut # (Auto) 3.96 (1.4-6.5) K/uL Lymph # (Auto) 0.70 L (1.2-3.4) K/uL Bates # (Auto) 0.54 (0.11-0.59) K/uL Eos # (Auto) 0.03 (0-0.5) K/uL Baso # (Auto) 0.01 (0-0.2) K/uL PT 15.1 H (9.0-12.0) Seconds INR 1.5 H (0.9-1.1) APTT 29.8 (21.0-31.0) Seconds PTT Ratio 1.1 Sodium (136-145) mmol/L Potassium (3.5-5.1) mmol/L Chloride (98-107) mmol/L Carbon Dioxide (21-32) mmol/L Anion Gap (3-11) BUN (7-18) mg/dl Creatinine (0.6-1.4) mg/dl Est Cr Clr Drug Dosing Est GFR ( Amer) Est GFR (Non-Af Amer) BUN/Creatinine Ratio (10-20) Glucose (70-99) mg/dl Calcium (8.5-10.1) mg/dl Phosphorus (2.5-4.9) mg/dl Magnesium (1.8-2.4) mg/dl Total Bilirubin (0.2-1) mg/dl AST (15-37) U/L ALT (12-78) U/L Alkaline Phosphatase (45-117) U/L Troponin I (0-0.045) ng/ml NT-Pro-B Natriuret Pep (0-1800) pg/ml Total Protein (6.4-8.2) gm/dl Albumin (3.4-5.0) gm/dl Globulin (2.5-4.0) gm/dl Albumin/Globulin Ratio (0.9-2) Lipase (73-393) U/L Influenza Type A (PCR) Neg for Influ A (Neg) Influenza Type B (PCR) Neg for Influ B (Neg) 05/02/19 Range/Units 17:10 WBC (4.8-10.8) K/uL RBC (4.7-6.1) M/uL Hgb (14.0-18.0) g/dL Hct (42-52) % MCV (80-100) fL MCH (25-34) pg MCHC (32-36) g/dL RDW Std Deviation (36.4-46.3) fL RDW Coeff of Kimberlee (11.5-14.5) % Plt Count (130-400) K/uL MPV (7.4-10.4) fL Immature Gran % (Auto) % Neut % (Auto) % Lymph % (Auto) % Bates % (Auto) % Eos % (Auto) % Baso % (Auto) % Immature Gran # (Auto) (0.00-0.02) K/uL Neut # (Auto) (1.4-6.5) K/uL Lymph # (Auto) (1.2-3.4) K/uL Bates # (Auto) (0.11-0.59) K/uL Eos # (Auto) (0-0.5) K/uL Baso # (Auto) (0-0.2) K/uL PT (9.0-12.0) Seconds INR (0.9-1.1) APTT (21.0-31.0) Seconds PTT Ratio Sodium 138 (136-145) mmol/L Potassium 3.4 L (3.5-5.1) mmol/L Chloride 105 (98-107) mmol/L Carbon Dioxide 28 (21-32) mmol/L Anion Gap 6.0 (3-11) BUN 22 H (7-18) mg/dl Creatinine 1.01 (0.6-1.4) mg/dl Est Cr Clr Drug Dosing Not Reportable Est GFR ( Amer) 83.4 Est GFR (Non-Af Amer) 71.9 BUN/Creatinine Ratio 21.5 H (10-20) Glucose 149 H (70-99) mg/dl Calcium 8.7 (8.5-10.1) mg/dl Phosphorus 3.1 (2.5-4.9) mg/dl Magnesium 1.7 L (1.8-2.4) mg/dl Total Bilirubin 0.8 (0.2-1) mg/dl AST 23 (15-37) U/L ALT 20 (12-78) U/L Alkaline Phosphatase 119 H (45-117) U/L Troponin I 0.035 (0-0.045) ng/ml NT-Pro-B Natriuret Pep 48678 H (0-1800) pg/ml Total Protein 7.3 (6.4-8.2) gm/dl Albumin 2.9 L (3.4-5.0) gm/dl Globulin 4.4 H (2.5-4.0) gm/dl Albumin/Globulin Ratio 0.7 L (0.9-2) Lipase 333 (73-393) U/L Influenza Type A (PCR) (Neg) Influenza Type B (PCR) (Neg) Imaging Data Attestation: I personally reviewed and interpreted this imaging study as follows: Radiologist's Impression: Outpatient CXR today: XR chest 2V PA/lateral CLINICAL HISTORY: 74 years-old Male presenting with I50.21 Acute systolic (congestive) heart failure. TECHNIQUE: PA and lateral views of the chest were obtained. COMPARISON: 11/26/2018. FINDINGS: Atherosclerosis of the aortic arch. Cardiac silhouette enlarged. Pulmonary vascular prominence and interstitial prominence to a mild degree. Moderate to large right and trace left pleural effusions. Poor aeration of the right mid to lower lung. No pneumothorax. Osteopenia suspected. Advanced degenerative changes of the glenohumeral joints. Degenerative changes of the spine. Upper abdomen normal. IMPRESSION: 1. Moderate to large right and trace left pleural effusions with extensive right basilar atelectasis. 2. Cardiomegaly with mild volume overload and congestive change. Allowing for basilar atelectasis, no amy pulmonary edema. ACT 112: Negative or not required by law. ECG Data Additional Comments: EKG demonstrates sinus rhythm with PSVCs, rate of 71, left axis deviation, nonspecific T wave abnormality inferiorly, no overt ST elevation. MDM Narrative The patient is a pleasant 74-year-old gentleman with a past medical history of CAD, diabetes, A. fib, ischemic cardiomyopathy with EF of 30% who presents emergency department with ongoing shortness of breath for the past several weeks with question of increased weight gain. Patient reports possible weight gain. He denies fevers or chills. He does report mild congestion with sputum production. He denies any recent travel. He denies nausea, vomiting, diarrhea. On arrival patient is mildly dyspneic but no acute distress, afebrile stable vital signs. Of note, the patient was hypoxic to 88% on room air in the setting of not being on oxygen at home. EKG without overt acute ischemia. Patient chest x-ray reviewed and demonstrates moderate to large left pleural effusions with right basilar atelectasis. Cardiomegaly is noted with mild volume overload and congestive change. No focal infiltrates. WBC within normal limits. Platelets within normal limits. H/H 10.8/33.7 approximate 2 prior values. Chemistry without acidosis. Potassium 3.4 with repletion provided. Magnesium 1.7 with repletion provided. Troponin 0.035, then normal limits. BNP 11 K w ithout prior values for comparison. Flu negative. Symptoms likely related to volume overload given chest x-ray findings and elevated BNP. Given the patient's hypoxia reasonable to admit the patient for further management. He was given initial dose of Lasix. Case was discussed with Dr. Paty Jay, [facility] hospitalist, who evaluate the patient for admission. Impression & Plan Hypoxia, COLLINS (dyspnea on exertion), Hypomagnesemia, Hypokalemia, CHF (congestive heart failure), Volume overload Discharge Plan Visit Data *Final* Discharge Date/Time: 05/02/19 23:04 Chief Complaint: Shortness of Breath/Dyspnea Stated Complaint: SOB,COUGH,DOC REFERRED ED Provider: Tk Martinez Discharge Problem: Hypoxia, COLLINS (dyspnea on exertion), Hypomagnesemia, Hypokalemia, CHF (congestive heart failure), Volume overload Patient Disposition: Admitted As Inpatient Discharge Instructions Interventions: ED Discharge Assessment Last Done: 05/02/19 23:04
--- NOTE | 2019-05-02 17:02 | Electrocardiogram Report ---
Test Reason : Blood Pressure : / mmHG Vent. Rate : 071 BPM Atrial Rate : 071 BPM P-R Int : 156 ms QRS Dur : 082 ms QT Int : 436 ms P-R-T Axes : 064 -36 117 degrees QTc Int : 473 ms Sinus rhythm with Premature supraventricular complexes Left axis deviation Anterior infarct (cited on or before 28-DEC-2017) Abnormal ECG When compared with ECG of 26-NOV-2018 18:33, Nonspecific T wave abnormality, improved in Inferior leads Confirmed by Madhu Dodge [id number] on 05/02/2019 5:01:48 PM Referred By: Confirmed By:Madhu Dodge
[2019-05-02 17:26] LABS: Basophils # (auto) 0.01 K/uL (0-0.2); Basophils % (auto) 0.2 %; Eosinophils # (auto) 0.03 K/uL (0-0.5); Eosinophils % (auto) 0.6 %; Hematocrit (blood only) 33.7 % (42-52); Hemoglobin 10.8 g/dL (14.0-18.0); Lymphocytes % (auto) 13.4 %; Mean Corpuscular Hemoglobin 28.6 pg (25-34); Mean Corpuscular Volume 89.2 fL (80-100); Mean Platelet Volume 10.8 fL (7.4-10.4); Monocytes # (auto) 0.54 K/uL (0.11-0.59); Monocytes % (auto) 10.3 %; Neutrophils # (auto) 3.96 K/uL (1.4-6.5); Neutrophils % (auto) 75.5 %; Platelet Count 240 K/uL (130-400); RDW Coefficient of Variation 18.7 % (11.5-14.5); Red Blood Count 3.78 M/uL (4.7-6.1); White Blood Count 5.24 K/uL (4.8-10.8)
[2019-05-02 17:40] LABS: INR 1.5 (0.9-1.1); Partial Thromboplastin Ratio 1.1; Partial Thromboplastin Time 29.8 Seconds (21.0-31.0); Prothrombin Time 15.1 Seconds (9.0-12.0)
[2019-05-02 17:45] LABS: Alanine Aminotransferase 20 U/L (12-78); Albumin Level 2.9 gm/dl (3.4-5.0); Aspartate Aminotransferase 23 U/L (15-37); BUN Creatinine Ratio 21.5 (10-20); Blood Urea Nitrogen 22 mg/dl (7-18); Calcium 8.7 mg/dl (8.5-10.1); Carbon Dioxide 28 mmol/L (21-32); Chloride 105 mmol/L (98-107); Est GFR (African American) 83.4; Est GFR (Non-African American) 71.9; Glucose 149 mg/dl (70-99); Lipase 333 U/L (73-393); Magnesium 1.7 mg/dl (1.8-2.4); Potassium 3.4 mmol/L (3.5-5.1); Sodium 138 mmol/L (136-145)
[2019-05-02 17:51] LABS: Albumin Globulin Ratio 0.7 (0.9-2); Alkaline Phosphatase 119 U/L (45-117); Bilirubin,Total 0.8 mg/dl (0.2-1); Globulin 4.4 gm/dl (2.5-4.0); NT Pro B Type Natriuretic Pept 11640 pg/ml (0-1800); Phosphorus 3.1 mg/dl (2.5-4.9); Total Protein 7.3 gm/dl (6.4-8.2); Troponin I 0.035 ng/ml (0-0.045)
[2019-05-02 18:02] LABS: Influenza A virus by PCR Neg for Influ A (Neg); Influenza B virus by PCR Neg for Influ B (Neg)
[2019-05-02] MEDS ORDERED: POTASSIUM CHLORIDE 20 MEQ TABCR PO STA (18:06)
[2019-05-02] MEDS ORDERED: MAGNESIUM SULFATE / D5W 1 GM/100 ML BAG IV ONE (18:06)
[2019-05-02] MEDS ORDERED: FUROSEMIDE 40 MG/4 ML VIAL IV STA (18:06)
--- NOTE | 2019-05-02 19:20 | History & Physical Report ---
Date of Service May 02, 2019 Assessment & Plan (1) Acute systolic (congestive) heart failure: Noted on CXR Hypoxia on RA on initial presentation Lasix in the ED, monitor on home dose ECHO pending CHF clinic referral BNP elevated Flu neg Trop neg x1 EKG neg for acute Follows with Dr. Jimenez if needed (2) Hypokalemia: Replaced in the ED and monitor (3) Hypomagnesemia: Replaced in the ED, monitor (4) Type II diabetes mellitus: Metformin A1c pending (5) CAD (coronary artery disease): s/p [place] with stents 12/2017 Aspirin/plavix (6) Hyperlipidemia: continue home meds (7) Ischemic cardiomyopathy: ECHO pending (8) Hypertension: continue home meds (9) DVT prophylaxis: Heparin for DVT proph History of Present Illness Primary Care Provider: VIVIAN English 74 y/o M c/o SOB. Pt states this has been getting worse over the last few weeks and is mostly with exertion. He states that sometimes he can get up and down stairs without issue, but other times it is a problem. He is having occasional SOB at rest, but not often. No chest pain. He does get LE swelling, but not much at present. Some nausea today, but no emesis. He had diarrhea x2, but not in the last few days. He states his appetite is low and his PO intake has been down. He has gained weight despite this. He takes his lasix as scheduled and does not miss doses. He has felt overall week the last few days. Pt denies fever, abd pain, LE pain or swelling. Pt was noted to be 88% on RA on arrival. He states that he feels a bit better with O2 at present, but has not been OOB. Allergies Allergy/AdvReac Type Severity Reaction Status Date / Time No Known Drug Allergies Allergy Verified 05/02/19 10:39 Home Medications Home Medications Medication Instructions Recorded Confirmed Type aspirin [Ecotrin Low Strength] 81 mg PO QAM #90 tab 12/29/17 05/02/19 Rx nitroglycerin [Nitrostat] 0.4 mg SUBLINGUAL Q5M PRN #20 tab 12/29/17 05/02/19 Rx clopidogrel 75 mg tablet 75 mg PO DAILY #90 tab 10/14/18 05/02/19 Rx atorvastatin 80 mg tablet 80 mg PO DAILY #90 tab 01/01/19 05/02/19 Rx metoprolol succinate 100 mg 100 mg PO DAILY #90 tab 01/01/19 05/02/19 Rx tablet,extended release 24 hr triamcinolone acetonide 0.1 % 1 appln TOP BID #30 gm 02/04/19 05/02/19 Rx topical cream furosemide 40 mg tablet 40 mg PO DAILY tab 02/26/19 05/02/19 History sacubitril 24 mg-valsartan 26 mg 1 tab PO BID #60 tab 02/26/19 05/02/19 Rx tablet isosorbide mononitrate 30 mg 30 mg PO DAILY #90 tab 04/28/19 05/02/19 Rx tablet,extended release 24 hr metformin 500 mg tablet,extended 1,000 mg PO BID #360 tab 04/28/19 05/02/19 Rx release 24 hr Past Med/Surg History Medical History Acute systolic CHF (congestive heart failure) (Resolved) Diabetes (Chronic) Diabetes (Chronic) Dyspnea on exertion (Acute) HTN (hypertension) (Chronic) Hypertension (Chronic) Infective dermatitis (Acute) Ischemic cardiomyopathy (Chronic) Multi-vessel coronary artery stenosis (Chronic) NSVT (nonsustained ventricular tachycardia) (Chronic) Peripheral neuropathy (Chronic) ST elevation (STEMI) myocardial infarction (Resolved) Surgical History History of cardiac catheterization (Inactive) History of hip replacement (Inactive) History of inguinal hernia repair (Inactive) History of total left hip arthroplasty Family History Father Myocardial infarction Denies family history of Ovarian cancer Prostate cancer Breast cancer Colorectal cancer Social History Preferred Language: Korean Communication Ability: Effective Visual Impairment: No Limitations Hearing Ability: Normal 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: No Beliefs That Will Affect Care: None marital status: Current Living Situation: Spouse Feels Safe at Home: Yes Smoking Status: Never smoker Second Hand Exposure: No ; Hx Alcohol Use: No Hx Substance Use: No Review of Systems Review of Systems: Pertinent positives and negatives reviewed in HPI--all others negative Physical Exam Constitutional: WD/WN, vitals as above Eyes: normal visual gunter by confrontation and + anicteric sclerae Neck: normal visual inspection and trachea midline Respiratory: normal respiratory effort; no respiratory distress Auscultation: + crackles; no wheezes Cardiovascular: Rate/Rhythm: regular rate and regular rhythm Gastrointestinal (Abdomen): Inspection/Auscultation: abdomen not distended Percussion/Palpation: abdomen soft; abdomen nontender Musculoskeletal: Head/Neck/Chest: normocephalic and head atraumatic negative for edema, peripheral pulses intact Skin: no rashes, warm and dry Neurologic: awake; not confused Speech / Cognition: normal speech Psychiatric: A+Ox3, euthymic affect Results & Data Vital Signs (Past 12 Hours) Vital Signs Temp Pulse Pulse Resp BP BP Pulse Ox 05/02/19 18:30 82 20 125/88 96 05/02/19 18:14 81 17 114/85 96 05/02/19 17:15 70 18 106/74 99 05/02/19 16:45 75 20 98 05/02/19 16:20 70 21 102/75 88 L 05/02/19 16:12 72 20 97 05/02/19 15:21 36.6 C 88 20 117/80 95 Diagnostic Findings CXR: CHF ECG Rhythm: normal sinus Code Status & VTE Plan Code Status Full code VTE Prophylaxis Plan VTE Prophylaxis will be ordered: Yes PG Care Time/CCT Total # of Minutes Spent Total Time Spent with Patient: Total time spent is greater than 50% in coordination of care (as documented) at patient's floor/unit and/or counseling patient: Coding Level of Care Code 17439 Initial Inpt Care Lvl 3 Diagnoses Acute systolic (congestive) heart failure I50.21 Hypokalemia E87.6 Hypomagnesemia E83.42 Type II diabetes mellitus E11.9 CAD (coronary artery disease) I25.10 Hyperlipidemia E78.5 Ischemic cardiomyopathy I25.5 Hypertension I10 Hypertension type: essential hypertension DVT prophylaxis Z29.9 (1) Hypertension Hypertension type: essential hypertension Qualified Code(s): I10 - Essential (primary) hypertension
[2019-05-02] MEDS ORDERED: ACETAMINOPHEN 325 MG TAB PO PRN (23:53)
[2019-05-02] MEDS ORDERED: ONDANSETRON INJ 2 MG/ML 2 ML VIAL IV PRN (23:53)
[2019-05-02] MEDS ORDERED: NITROGLYCERIN SL 0.4 MG/TAB TAB SL PRN (23:53)
[2019-05-02] MEDS ORDERED: MAGNESIUM HYDROXIDE SUSP 30 ML UDC PO PRN (23:53)
[2019-05-03] MEDS: SACUBITRIL-VALSARTAN 24-26 MG TAB PO SCH ×3 (00:36→20:21)
[2019-05-03] MEDS: HEPARIN SOD 5,000 UNIT/0.5 ML VIAL SQ SCH ×4 (00:36→20:21)
[2019-05-03] MEDS: TRIAMCINOLONE ACET 0.1% CR 15 GM TUBE TOP SCH ×3 (00:36→20:21)
[2019-05-03 06:48] LABS: Basophils # (auto) 0.03 K/uL (0-0.2); Basophils % (auto) 0.6 %; Eosinophils # (auto) 0.07 K/uL (0-0.5); Eosinophils % (auto) 1.4 %; Hematocrit (blood only) 34.6 % (42-52); Immature Granulocytes # (auto) 0.02 K/uL (0.00-0.02); Immature Granulocytes % (auto) 0.4 %; Lymphocytes # (auto) 0.92 K/uL (1.2-3.4); Lymphocytes % (auto) 18.7 %; Mean Corpuscular Hemoglobin 28.3 pg (25-34); Mean Corpuscular Hgb Conc 31.8 g/dL (32-36); Mean Corpuscular Volume 88.9 fL (80-100); Mean Platelet Volume 10.9 fL (7.4-10.4); Monocytes # (auto) 0.42 K/uL (0.11-0.59); Monocytes % (auto) 8.6 %; Neutrophils # (auto) 3.45 K/uL (1.4-6.5); Neutrophils % (auto) 70.3 %; Platelet Count 237 K/uL (130-400); RDW Coefficient of Variation 18.8 % (11.5-14.5); RDW Standard Deviation 60.8 fL (36.4-46.3); Red Blood Count 3.89 M/uL (4.7-6.1); White Blood Count 4.91 K/uL (4.8-10.8)
[2019-05-03 07:20] LABS: BUN Creatinine Ratio 19.5 (10-20); Calcium 8.7 mg/dl (8.5-10.1); Est GFR (African American) 81.4; Est GFR (Non-African American) 70.2; Magnesium 1.9 mg/dl (1.8-2.4); Phosphorus 3.5 mg/dl (2.5-4.9); Potassium 3.5 mmol/L (3.5-5.1)
[2019-05-03] MEDS: FUROSEMIDE 40 MG TAB PO SCH (07:38)
[2019-05-03] MEDS: ISOSORBIDE MONO EXTENDED REL 30 MG TABCR PO SCH (07:38)
[2019-05-03] MEDS: METOPROLOL SUCC 50MG EXT REL TAB PO SCH (07:38)
[2019-05-03] MEDS: CLOPIDOGREL BISULFATE 75 MG TAB PO SCH (07:38)
[2019-05-03] MEDS: ATORVASTATIN 40 MG TAB PO SCH (07:38)
[2019-05-03] MEDS: METFORMIN HCL ER 500 MG TABCR PO SCH ×2 (07:39→16:52)
[2019-05-03] MEDS: ASPIRIN 81 MG ECTAB PO SCH (07:39)
[2019-05-03 08:51] LABS: Estimated Average Glucose 197 mg/dl; Hemoglobin A1C 8.5 % (4.5-5.6)
--- NOTE | 2019-05-03 15:23 | XCELERA ---
[id number] \\[id number]
[2019-05-03] MEDS ORDERED: FUROSEMIDE 20 MG in SYRINGE 0 ML IV ONE (16:00)
--- NOTE | 2019-05-03 22:20 | Hospitalist Progress Note ---
Date of Service May 03, 2019 Assessment & Plan (1) Acute systolic (congestive) heart failure: Acute on chronic systolic dysfunction Patient has stone dhistory of EF 30-35% Currently 25-30% Will continue to diurese patient and monitor BMP Patient continues to require oxygen. Will monitor. Noted on CXR EKG neg for acute Follows with Dr. Jimenez if needed (2) Hypokalemia: Replaced in the ED and monitor (3) Hypomagnesemia: Replaced in the ED, monitor (4) Type II diabetes mellitus: Metformin A1c 8.5 (5) CAD (coronary artery disease): s/p [place] with stents 12/2017 Aspirin/plavix (6) Hyperlipidemia: continue home meds (7) Ischemic cardiomyopathy: ECHO completed. (8) Hypertension: continue home meds (9) DVT prophylaxis: Heparin for DVT proph Admission and Anticipated Discharge Date Admission Date: May 02, 2019 Subjective Patient reports still feeling short of breath at rest. Patient denies any new symptoms at this time. Review of Systems Review of Systems: All systems reviewed & are unremarkable except as noted in HPI & below Physical Exam Physical Exam: Constitutional: WD/WN, vitals as above Eyes: normal visual gunter by confrontation and + anicteric sclerae Neck: normal visual inspection and trachea midline Respiratory: normal respiratory effort; no respiratory distress Auscultation: + crackles; no wheezes Cardiovascular: Rate/Rhythm: regular rate and regular rhythm Gastrointestinal (Abdomen): Inspection/Auscultation: abdomen not distended Percussion/Palpation: abdomen soft; abdomen nontender Musculoskeletal: Head/Neck/Chest: normocephalic and head atraumatic negative for edema, peripheral pulses intact Skin: no rashes, warm and dry Neurologic: awake; not confused Speech / Cognition: normal speech Psychiatric: A+Ox3, euthymic affect Results & Data ([facility]) Vital Signs (Past 12 Hours) Vital Signs Temp Pulse Pulse Resp BP BP Pulse Ox 05/03/19 19:50 36.6 C 71 21 112/74 93 05/03/19 18:19 81 05/03/19 15:13 36.5 C 78 16 125/74 96 05/03/19 11:43 36.5 C 75 18 100/67 96 PG Care Time/CCT Total # of Minutes Spent Total Time Spent with Patient: Total time spent is greater than 50% in coordination of care (as documented) at patient's floor/unit and/or counseling patient: Coding Level of Care Code 95937 Subseq Hosp Care Lvl 3 Diagnoses Acute systolic (congestive) heart failure I50.21 Hypokalemia E87.6 Hypomagnesemia E83.42 Type II diabetes mellitus E11.9 CAD (coronary artery disease) I25.10 Hyperlipidemia E78.5 Ischemic cardiomyopathy I25.5 Hypertension I10 Hypertension type: essential hypertension DVT prophylaxis Z29.9 Time Spent (min) 35 (1) Hypertension Hypertension type: essential hypertension Qualified Code(s): I10 - Essential (primary) hypertension
[2019-05-04] MEDS: HEPARIN SOD 5,000 UNIT/0.5 ML VIAL SQ SCH ×3 (06:23→21:28)
[2019-05-04 06:31] LABS: Hematocrit (blood only) 36.2 % (42-52); Hemoglobin 11.6 g/dL (14.0-18.0); Mean Corpuscular Hemoglobin 28.9 pg (25-34); Platelet Count 252 K/uL (130-400); RDW Coefficient of Variation 18.7 % (11.5-14.5); Red Blood Count 4.02 M/uL (4.7-6.1); White Blood Count 5.76 K/uL (4.8-10.8)
[2019-05-04 07:01] LABS: BUN Creatinine Ratio 24.5 (10-20); Calcium 8.8 mg/dl (8.5-10.1); Creatinine Clr Calc Pharmacy 64.7 ml/min; Est GFR (African American) 90.9; Est GFR (Non-African American) 78.4; Potassium 3.6 mmol/L (3.5-5.1)
[2019-05-04 07:05] LABS: Troponin I 0.022 ng/ml (0-0.045)
[2019-05-04] MEDS: METOPROLOL SUCC 50MG EXT REL TAB PO SCH (07:36)
[2019-05-04] MEDS: CLOPIDOGREL BISULFATE 75 MG TAB PO SCH (07:36)
[2019-05-04] MEDS: TRIAMCINOLONE ACET 0.1% CR 15 GM TUBE TOP SCH ×2 (07:36→21:29)
[2019-05-04] MEDS: SACUBITRIL-VALSARTAN 24-26 MG TAB PO SCH ×2 (07:37→21:27)
[2019-05-04] MEDS: ASPIRIN 81 MG ECTAB PO SCH (07:37)
[2019-05-04] MEDS: ATORVASTATIN 40 MG TAB PO SCH (07:37)
[2019-05-04] MEDS: METFORMIN HCL ER 500 MG TABCR PO SCH ×2 (07:37→17:08)
[2019-05-04] MEDS: ISOSORBIDE MONO EXTENDED REL 30 MG TABCR PO SCH (07:37)
[2019-05-04] MEDS: FUROSEMIDE 40 MG TAB PO SCH (07:37)
[2019-05-04] MEDS ORDERED: FUROSEMIDE 20 MG in SYRINGE 0 ML IV ONE (14:30)
[2019-05-04 20:54] LABS: BUN Creatinine Ratio 17.8 (10-20); Calcium 8.7 mg/dl (8.5-10.1); Est GFR (African American) 69.8; Est GFR (Non-African American) 60.2; Magnesium 1.7 mg/dl (1.8-2.4); Potassium 3.7 mmol/L (3.5-5.1)
[2019-05-04 21:00] LABS: Phosphorus 2.9 mg/dl (2.5-4.9)
[2019-05-04] MEDS ORDERED: POTASSIUM CHLORIDE 20 MEQ TABCR PO STA (21:52)
[2019-05-04] MEDS: MAGNESIUM SULFATE / D5W 1 GM/100 ML BAG IV SCH ×2 (22:15→23:29)
--- NOTE | 2019-05-04 22:15 | Hospitalist Progress Note ---
Date of Service May 04, 2019 Assessment & Plan (1) Acute systolic (congestive) heart failure: Acute on chronic systolic dysfunction Patient has had history of EF 30-35% Currently 25-30% Will continue to diurese patient and monitor BMP Patient received oral lasix 40 mg and 20 mg of IV lasix for the past [address] on scheduled lasix 40 mg IV for AM of 05/04 Patient currently tolerating diuresis. Patient continues to require oxygen. Will monitor. Noted on CXR EKG neg for acute Follows with Dr. Jimenez if needed (2) Hypokalemia: Replaced in the ED and monitor (3) Hypomagnesemia: Replaced in the ED, monitor (4) Type II diabetes mellitus: Metformin A1c 8.5 (5) CAD (coronary artery disease): s/p [place] with stents 12/2017 Aspirin/plavix (6) Hyperlipidemia: continue home meds (7) Ischemic cardiomyopathy: ECHO completed. (8) Hypertension: continue home meds (9) DVT prophylaxis: Heparin for DVT proph Admission and Anticipated Discharge Date Admission Date: May 02, 2019 Subjective Patient reports no signifcant improvement from yesterday and no new symptoms. Review of Systems Review of Systems: All systems reviewed & are unremarkable except as noted in HPI & below Physical Exam Physical Exam: Constitutional: WD/WN, vitals as above Eyes: normal visual gunter by confrontation and + anicteric sclerae Neck: normal visual inspection and trachea midline Respiratory: normal respiratory effort; no respiratory distress Auscultation: + crackles; no wheezes Cardiovascular: Rate/Rhythm: regular rate and regular rhythm Gastrointestinal (Abdomen): Inspection/Auscultation: abdomen not distended Percussion/Palpation: abdomen soft; abdomen nontender Musculoskeletal: Head/Neck/Chest: normocephalic and head atraumatic negative for edema, peripheral pulses intact Skin: no rashes, warm and dry Neurologic: awake; not confused Speech / Cognition: normal speech Psychiatric: A+Ox3, euthymic affect Results & Data ([facility]) Vital Signs (Past 12 Hours) Vital Signs Temp Pulse Pulse Resp BP Pulse Ox 05/04/19 19:46 36.4 C L 75 20 119/80 97 05/04/19 15:19 36.5 C 85 20 120/81 97 05/04/19 15:16 75 05/04/19 11:36 36.4 C L 80 20 122/85 95 PG Care Time/CCT Total # of Minutes Spent Total Time Spent with Patient: Total time spent is greater than 50% in coordination of care (as documented) at patient's floor/unit and/or counseling patient: Coding Level of Care Code 45530 Subseq Hosp Care Lvl 2 Diagnoses Acute systolic (congestive) heart failure I50.21 Hypokalemia E87.6 Hypomagnesemia E83.42 Type II diabetes mellitus E11.9 CAD (coronary artery disease) I25.10 Hyperlipidemia E78.5 Ischemic cardiomyopathy I25.5 Hypertension I10 Hypertension type: essential hypertension DVT prophylaxis Z29.9 Time Spent (min) 25 (1) Hypertension Hypertension type: essential hypertension Qualified Code(s): I10 - Essential (primary) hypertension
[2019-05-05] MEDS: HEPARIN SOD 5,000 UNIT/0.5 ML VIAL SQ SCH ×3 (05:53→20:51)
[2019-05-05] MEDS ORDERED: FUROSEMIDE 40 MG in SYRINGE 0 ML IV SCH (09:00)
[2019-05-05] MEDS: METOPROLOL SUCC 50MG EXT REL TAB PO SCH (09:16)
[2019-05-05] MEDS: ATORVASTATIN 40 MG TAB PO SCH (09:16)
[2019-05-05] MEDS: CLOPIDOGREL BISULFATE 75 MG TAB PO SCH (09:16)
[2019-05-05] MEDS: SACUBITRIL-VALSARTAN 24-26 MG TAB PO SCH ×2 (09:17→20:51)
[2019-05-05] MEDS: METFORMIN HCL ER 500 MG TABCR PO SCH (09:17)
[2019-05-05] MEDS: TRIAMCINOLONE ACET 0.1% CR 15 GM TUBE TOP SCH ×2 (09:17→21:47)
[2019-05-05] MEDS: ISOSORBIDE MONO EXTENDED REL 30 MG TABCR PO SCH (09:17)
[2019-05-05] MEDS: ASPIRIN 81 MG ECTAB PO SCH (09:17)
[2019-05-05 09:23] LABS: Hematocrit (blood only) 39.3 % (42-52); Hemoglobin 12.7 g/dL (14.0-18.0); Mean Corpuscular Hemoglobin 28.8 pg (25-34); Mean Corpuscular Hgb Conc 32.3 g/dL (32-36); Mean Corpuscular Volume 89.1 fL (80-100); Mean Platelet Volume 10.9 fL (7.4-10.4); Platelet Count 263 K/uL (130-400); RDW Coefficient of Variation 18.9 % (11.5-14.5); RDW Standard Deviation 61.2 fL (36.4-46.3); Red Blood Count 4.41 M/uL (4.7-6.1); White Blood Count 6.18 K/uL (4.8-10.8)
[2019-05-05 09:47] LABS: BUN Creatinine Ratio 18.9 (10-20); Calcium 9.5 mg/dl (8.5-10.1); Creatinine Clr Calc Pharmacy 56.8 ml/min; Est GFR (African American) 77.7; Est GFR (Non-African American) 67.1; Magnesium 2.3 mg/dl (1.8-2.4); Potassium 3.6 mmol/L (3.5-5.1)
--- NOTE | 2019-05-05 13:39 | Hospitalist Progress Note ---
Date of Service May 05, 2019 Assessment & Plan (1) Acute systolic (congestive) heart failure: Acute on chronic systolic dysfunction Patient has had history of EF 30-35% Currently 25-30% Will continue to diurese patient and monitor BMP Patient received oral lasix 40 mg and 20 mg of IV lasix for the past 2 days. No real change in Cr therefore lasix increased to 40mg IV BID today however euvolemic on exam therefore suspect most of his current O2 requirement and SOB related to pleural effusion which may or may not be due to his heart failure. Given increase in BNP would still recommend increased dose of lasix. (2) Pleural effusion, right: This appears out of proportion to overall fluid status and one sided. Discussed with Tiffany (heart failure nurse) and agree patient is mostly symptomatic from this which i had assumed to be his heart failure but looking back at his imaging this was not present at all in November 2018 and very one sided. Therefore recommend thoracocentesis for diagnostic as well as therapeutic purposes and will consult pulmonology regarding this. (3) Hypoxia: Suspect mostly secondary to pleural effusion above. Aim O2 sats > 90%. (4) Ventricular tachycardia: Sustained 30 second episode in setting of hypomagnesemia and ischemic cardiomyopathy. Appreciate cardiology consult. ICD non-urgent at this time. (5) Hypokalemia: Given sustained VT gurinder aim K > 4. (6) Hypomagnesemia: 1g Mg sulphate IV given yesterday in setting of VT. Will continue to monitor and replace as necessary. (7) Type II diabetes mellitus: HbA1c 8.5 this admission Given ongoing admission and unclear need of contrast at some point will d/c metformin and consult pharmacy for glycemic control with insulin while admitted (8) CAD (coronary artery disease): s/p [place] with stents 12/2017 Aspirin/Plavix/atorvastatin/Imdur (9) Hyperlipidemia: continue atorvastatin 80mg PO daily (10) Ischemic cardiomyopathy: ECHO LVEF 25-35% with wall motion abnormalities (11) Hypertension: Stable. Continue home meds (12) DVT prophylaxis: Heparin for DVT proph. Place on hold for morning for possible pleural fluid aspiration. Admission and Anticipated Discharge Date Admission Date: May 02, 2019 Subjective Patient reports mild improvement since admission. Still significantly short of breath. No chest pain, orthopnea or PND. No fevers, chills. Review of Systems Review of Systems: All systems reviewed & are unremarkable except as noted in HPI & below Physical Exam Constitutional: well developed and well nourished; no acute distress Eyes: + anicteric sclerae; normal pupil size ENMT: external ear and nose normal, oropharynx normal Neck: trachea midline Respiratory: normal respiratory effort Auscultation: + breath sounds absent (right base); no crackles and no wheezes Cardiovascular: Rate/Rhythm: regular rate and regular rhythm Heart Sounds: no murmur Extremities: no calf tenderness SCDs in place Gastrointestinal (Abdomen): Inspection/Auscultation: abdomen normal to inspection and normal bowel sounds Percussion/Palpation: abdomen soft; abdomen nontender, no guarding and abdomen not rigid Musculoskeletal: no cyanosis or clubbing, extremities motor strength 5/5 Skin: no rashes, warm and dry Neurologic: moves all extremities and awake; not confused Psychiatric: A+Ox3, euthymic affect Results & Data ([facility]) Vital Signs (Past 12 Hours) Vital Signs Temp Pulse Pulse Resp BP Pulse Ox 05/05/19 11:10 36.2 C L 72 18 113/74 97 05/05/19 10:29 72 05/05/19 06:58 36.4 C L 84 20 152/89 H 92 05/05/19 03:09 36.3 C L 84 20 130/81 92 05/05/19 03:06 86 PG Care Time/CCT Total # of Minutes Spent Total Time Spent with Patient: Total time spent is greater than 50% in coordination of care (as documented) at patient's floor/unit and/or counseling patient: Coding Level of Care Code 66503 Subseq Hosp Care Lvl 3 Diagnoses Acute systolic (congestive) heart failure I50.21 Pleural effusion, right J90 Hypoxia R09.02 Ventricular tachycardia I47.2 Hypokalemia E87.6 Hypomagnesemia E83.42 Type II diabetes mellitus E11.59 Diabetes mellitus complication detail: with other circulatory complications Diabetes mellitus complication status: with circulatory complication Diabetes mellitus shelter insulin use: without shelter use CAD (coronary artery disease) I25.10 Associated angina: without angina Coronary Disease-Associated Artery/Lesion type: [place] artery [place] vs. transplanted heart: [place] heart Hyperlipidemia E78.2 Hyperlipidemia type: mixed hyperlipidemia Ischemic cardiomyopathy I25.5 Hypertension I10 Hypertension type: essential hypertension DVT prophylaxis Z29.9 (1) Type II diabetes mellitus Diabetes mellitus complication detail: with other circulatory complications Diabetes mellitus complication status: with circulatory complication Diabetes mellitus shelter insulin use: without shelter use Qualified Code(s): E11.59 - Type 2 diabetes mellitus with other circulatory complications (2) CAD (coronary artery disease) Associated angina: without angina Coronary Disease-Associated Artery/Lesion type: [place] artery [place] vs. transplanted heart: [place] heart Qualified Code(s): I25.10 - Atherosclerotic heart disease of [place] coronary artery without angina pectoris (3) Hyperlipidemia Hyperlipidemia type: mixed hyperlipidemia Qualified Code(s): E78.2 - Mixed hyperlipidemia (4) Hypertension Hypertension type: essential hypertension Qualified Code(s): I10 - Essential (primary) hypertension
[2019-05-05] MEDS ORDERED: PHARMACY GLYCEMIC MGMT CONSULT STA (13:46)
[2019-05-05] MEDS ORDERED: PHARMACY GLYCEMIC MGMT CONSULT PRN (14:52)
[2019-05-05] MEDS ORDERED: CARBOHYDRATES FOR HYPOGLYCEMIA PO PRN (15:00)
[2019-05-05] MEDS ORDERED: DEXTROSE 50% 50 ML SYRINGE IV PRN (15:00)
[2019-05-05] MEDS ORDERED: GLUCAGON FOR INJ 1 MG VIAL SQ PRN (15:00)
[2019-05-05] MEDS ORDERED: GLUCOSE 40% GEL 15 GM TUBE PO PRN (15:00)
[2019-05-05] MEDS ORDERED: GLUCOSE 10 TABS/TUBE PO PRN (15:00)
--- NOTE | 2019-05-05 15:09 | Pharmacy Report ---
Glycemic Control Consultation - Date of Service May 05, 2019 - Scope Scope: Glycemic Pharmacist consulted for glycemic control and to write orders per [facility] inpatient glycemic control protocol. - Objective Weight: 80.2 kg Accroderickecks BSG (last 24hrs): 05/04/19 05/04/19 05/04/19 16:46 20:12 20:29 Glucose 144 H POC Glucose 167 H 171 H 05/05/19 05/05/19 05/05/19 07:31 09:09 11:56 Glucose 175 H POC Glucose 145 H 222 H Laboratory Data (last 24hrs): 05/04/19 05/05/19 20:29 09:09 Potassium 3.7 3.6 Carbon Dioxide 31 30 Anion Gap 5.0 6.0 Creatinine 1.17 1.07 Est Cr Clr Drug Dosing 52.0 56.8 HbA1c: Hemoglobin A1c 8.5 % (4.5-5.6) H 05/03/19 06:31 - Recent Pertinent Medications Outpatient Anti-diabetic Regimen: * Metformin 1 gm BID * A1c = 8.5 % 05/03/19 The patient is currently receiving: * Oral Agents: metformin 1 gm BID Risk Factors for Insulin Resistance: * Diet: T2DM - Assessment & Plan Assessment & Plan: ASSESSMENT: * 74 y/o male admitted for acute congestive heart failure. He has been continued on his outpatient metformin, with BSGs ranging from 145-222 mg/dL in the past 24 hours. Pharmacy discussed transition to SQ basal/bolus insulin at [facility] today and was subsequently consulted for glycemic control. * Pt is maintained on oral antidiabetic agents as an outpatient * Oral agents are not recommended for inpatient use d/t drug interactions, changing PO intake, and difficulty titrating for acute hyper/hypoglycemia. ADA recommends re-initiating outpatient oral agents 1-2 days prior to discharge if/when appropriate if they were held on admission. * Will hold oral agents for admission and utilize SQ basal bolus insulin regimen which is the recommended regimen for inpatient glycemic control. * Will initiate weight based insulin dosing for insulin patti patient and titrate based on BSG trends. PLAN FOR INPATIENT GLYCEMIC CONTROL: * Holding outpatient oral diabetes medications * Basal insulin * Lantus 15 units SQ qHS * Bolus insulin * NovoLog per scale ACHS or Q6hrs while NPO * Goal Range: Low 110 mg/dL - High 140 mg/dL * Correction Factor: 30 mg/dL/unit * Nutritional / Prandial insulin per carb ratio of 1 unit per 10 grams CHO consumed Discharge Recommendations: * A1c 8.5% on 05/03/19 * Goal A1c <8-8.5% based on age/comorbidities * Resume metformin on discharge, as long as patient no longer in acute HF Thank you.
--- NOTE | 2019-05-05 16:47 | Heart Failure Consultation ---
Date of Consultation May 05, 2019 Assessment & Plan (1) Acute systolic (congestive) heart failure: Patient has been referred to the [facility] heart failure program. We discussed the program this morning and he is agreeable. Patient is from the [facility] and is able to drive himself. He is also agreeable to more frequent phone call follows up upon discharge. Patient does not appear significantly hypervolemic on exam but has a large right sided pleural effusion on admission chest x-ray that may be contributing to his symptoms. Recommend repeat chest x- ray. Consider consulting pulmonology for possible thoracentesis if not improving. Still with positive fluid balance despite diuretics so far. Patient was increased to Lasix 40 mg IV BID today. He continues to have shortness of breath requiring supplemental oxygen. BUN/creatinine have been stable so I would agree with continued attempt to diuresis. Continue close monitoring. If kidney function worsening, consider other etiologies for dyspnea. Strict I&Os. Consistent daily standing weights. Low sodium diet, 2,000 mg daily. Continue 1500 ml fluid restriction. Continue guideline based medical therapy including Metoprolol 100 mg daily, Entresto 24/26 mg BID. Continue to titrate as BP and heart rate allow as outpatient. Anticipate close follow up with the heart failure program on discharge. Will arrange once discharge is tentative. EP to evaluate the patient regarding v- tach. Patient has refused ICD in the past. History of Present Illness Attending Physician: Dave Hu MD Mr. Cedeno is a 74-year-old man with a history of type 2 diabetes, hypertension, dyslipidemia, chronic systolic congestive heart failure, ischemic cardiomyopathy (EF 25-30%), transient atrial fibrillation, and multivessel coronary artery disease post anterior STEMI 12/2017. Dr. Jimenez is his primary pumper hand. Patient was admitted on 05/02/19. He presented to the ED with shortness of breath and weight gain. He was hypoxic on admission. ProBNP was elevated at 11k. Chest xray consistent with mild volume overload- no amy pulmonary edema, moderate to large right and trace left pleural effusion. Flu negative. Echocardiogram this admission demonstrates EF 25-30%, mild , moderate to severe TR, and severely dilated IVC. Patient received IV Lasix in the ED and then resumed his home dose of 40 mg daily. He was then increased to Lasix 40 mg IV yesterday. He was increased to BID dosing today. He is net neutral at this time, if I&Os are accurate. Weight is trending up. Kidney function and electrolytes remain stable. Patient has been referred to the [facility] heart failure program on admission. Today he reports he's feeling slightly improved but still more short of breath than his baseline. He is laying on his right side with his head only slightly e levated. He remains on supplemental O2. He has minimal lower extremity edema. He denies chest pain/tightness, cough, fever, or lightheadedness. He did have a run of monomorphic vtach last night and cardiology has been consulted in addition to the heart failure program. Allergies Allergy/AdvReac Type Severity Reaction Status Date / Time No Known Drug Allergies Allergy Verified 05/02/19 10:39 Home Medications Home Medications Medication Instructions Recorded Confirmed Type aspirin [Ecotrin Low Strength] 81 mg PO QAM #90 tab 12/29/17 05/02/19 Rx nitroglycerin [Nitrostat] 0.4 mg SUBLINGUAL Q5M PRN #20 tab 12/29/17 05/02/19 Rx clopidogrel 75 mg tablet 75 mg PO DAILY #90 tab 10/14/18 05/02/19 Rx atorvastatin 80 mg tablet 80 mg PO DAILY #90 tab 01/01/19 05/02/19 Rx metoprolol succinate 100 mg 100 mg PO DAILY #90 tab 01/01/19 05/02/19 Rx tablet,extended release 24 hr triamcinolone acetonide 0.1 % 1 appln TOP BID #30 gm 02/04/19 05/02/19 Rx topical cream furosemide 40 mg tablet 40 mg PO DAILY tab 02/26/19 05/02/19 History sacubitril 24 mg-valsartan 26 mg 1 tab PO BID #60 tab 02/26/19 05/02/19 Rx tablet isosorbide mononitrate 30 mg 30 mg PO DAILY #90 tab 04/28/19 05/02/19 Rx tablet,extended release 24 hr metformin 500 mg tablet,extended 1,000 mg PO BID #360 tab 04/28/19 05/02/19 Rx release 24 hr Patient History Medical History Acute systolic CHF (congestive heart failure) (Resolved) Diabetes (Chronic) Diabetes (Chronic) Dyspnea on exertion (Acute) HTN (hypertension) (Chronic) Hypertension (Chronic) Infective dermatitis (Acute) Ischemic cardiomyopathy (Chronic) Multi-vessel coronary artery stenosis (Chronic) NSVT (nonsustained ventricular tachycardia) (Chronic) Peripheral neuropathy (Chronic) ST elevation (STEMI) myocardial infarction (Resolved) Surgical History History of cardiac catheterization (Inactive) History of hip replacement (Inactive) History of inguinal hernia repair (Inactive) History of total left hip arthroplasty Family History Father Myocardial infarction Denies family history of Ovarian cancer Prostate cancer Breast cancer Colorectal cancer Social History Preferred Language: Zambian Communication Ability: Effective Visual Impairment: No Limitations Hearing Ability: Normal Oracle Analyst Required: No Beliefs That Will Affect Care: None marital status: Current Living Situation: Spouse Other Information That Helps Us Care for You: No Feels Safe at Home: Yes Safety Concerns: Feels Safe At This Time Smoking Status: Never smoker Second Hand Exposure: No ; Hx Alcohol Use: No Hx Substance Use: No Physical Exam Physical Exam: Weight: 176 lb Constitutional: Alert, oriented, in no acute distress. Supplemental O2 HEENT: Head is atraumatic and normocephalic. EOMs intact. Sclera anicteric. Face is symmetric. No perioral cyanosis. Mucous membranes moist. Neck: Supple, no JVD Pulmonary: Normal respiratory effort, decreased breath sounds on the right, mild bibasilar crackles. Cardiac: Regular rate and rhythm. Normal S1 and S2, no gallops, no rubs, no murmurs Extremities: 2+ radial pulses bilaterally. 2+ posterior tibialis pulses bilaterally. Trace pitting edema. Diffuse excoriations noted BLE, no evidence of drainage or cellulitis. No cyanosis or clubbing. Abdomen: Normal bowel sounds, soft, non-tender, no abdominal mass palpated Skin: Normal skin color, turgor, and pigmentation, no rash, excoriations as noted above Neurological: Patient is awake, alert, and oriented. Pleasant and cooperative. Answers questions appropriately. Speech is clear. Normal movement in all 4 extremities. Results & Data ([facility]) Vital Signs (Past 12 Hours) Vital Signs Temp Pulse Pulse Pulse Resp BP Pulse Ox 05/05/19 15:50 97.2 F L 80 20 106/70 95 05/05/19 15:38 71 05/05/19 13:41 72 05/05/19 11:10 97.2 F L 72 18 113/74 97 05/05/19 10:29 72 05/05/19 06:58 97.5 F L 84 20 152/89 H 92 Coding Level of Care Code 65951 Initial Inpt Care Lvl 2 Diagnoses Acute systolic (congestive) heart failure I50.21
[2019-05-05] MEDS: FUROSEMIDE 40 MG in SYRINGE 0 ML IV SCH (16:59)
[2019-05-05] MEDS: INSULIN ASPART 100 UNITS/ML 3 ML PEN SC SCH ×2 (17:32→20:52)
--- NOTE | 2019-05-05 19:41 | Cardiology Consultation ---
Date of Consultation May 05, 2019 Assessment & Plan (1) CHF (congestive heart failure): He has a known severe ischemic cardiomyopathy. He has been maintained on outpatient diuretics, beta-blockade and Entresto.He had a good diuresis during the early part of his admission. He continues on twice daily Lasix. He may require percutaneous drainage of a large right-sided pleural effusion. (2) CAD (coronary artery disease): Current symptoms are not suggestive of ischemia. He has been maintained on dual antiplatelet therapy, high-dose atorvastatin and Imdur (3) Ventricular tachycardia: The patient had approximately 30 seconds of ventricular tachycardia on telemetry. He did not appear to be symptomatic. Even before this episode of ventricular tachycardia he met criteria for an ICD as primary prevention against sudden cardiac . He is known to have ischemic heart disease. He appears to have scar on his recent perfusion study and he has reduced LV systolic function. We discussed the option of an ICD for prevention of sudden cardiac . I described the procedure to the patient and the utility of the device. I do not believe it would reduce any of his symptoms or propensity for heart failure. He certainly would not prevent recurrent ischemic events. At this point he seems to be leaning towards implantation but wants to think about it further. I do not believe there is an urgent indication for implant. Resolution of his breathing difficulty and stabilization of his medical condition would also be advantageous prior to implant. Currently he will continue on his beta-sherwin. History of Present Illness Reason for Consultation: [place] Requesting Physician: Mayte Attending Physician: Dave Hu MD History of Present Illness The patient is a 74-year-old gentleman with a longstanding history of coronary disease and associated ischemic cardiomyopathy who is currently admitted to the hospital with symptoms of dyspnea. He was presumed to have pulmonary vascular congestion due to his known cardiomyopathy. He is also noted to have a large right pleural effusion. Patient states that his breathing trouble started several days ago. He is found to be more comfortable lying on his right side and easier to breathe in this position. He otherwise did not report overt orthopnea. He did notice some mild edema. He has not reported symptoms of chest discomfort recently. He did not endorse symptoms of dizziness or lightheadedness. He has not been aware of any palpitations. He has not suffered syncope. Allergies Allergy/AdvReac Type Severity Reaction Status Date / Time No Known Drug Allergies Allergy Verified 05/02/19 10:39 Home Medications Home Medications Medication Instructions Recorded Confirmed Type aspirin [Ecotrin Low Strength] 81 mg PO QAM #90 tab 12/29/17 05/02/19 Rx nitroglycerin [Nitrostat] 0.4 mg SUBLINGUAL Q5M PRN #20 tab 12/29/17 05/02/19 Rx clopidogrel 75 mg tablet 75 mg PO DAILY #90 tab 10/14/18 05/02/19 Rx atorvastatin 80 mg tablet 80 mg PO DAILY #90 tab 01/01/19 05/02/19 Rx metoprolol succinate 100 mg 100 mg PO DAILY #90 tab 01/01/19 05/02/19 Rx tablet,extended release 24 hr triamcinolone acetonide 0.1 % 1 appln TOP BID #30 gm 02/04/19 05/02/19 Rx topical cream furosemide 40 mg tablet 40 mg PO DAILY tab 02/26/19 05/02/19 History sacubitril 24 mg-valsartan 26 mg 1 tab PO BID #60 tab 02/26/19 05/02/19 Rx tablet isosorbide mononitrate 30 mg 30 mg PO DAILY #90 tab 04/28/19 05/02/19 Rx tablet,extended release 24 hr metformin 500 mg tablet,extended 1,000 mg PO BID #360 tab 04/28/19 05/02/19 Rx release 24 hr Patient History Medical History Acute systolic CHF (congestive heart failure) (Resolved) Diabetes (Chronic) Diabetes (Chronic) Dyspnea on exertion (Acute) HTN (hypertension) (Chronic) Hypertension (Chronic) Infective dermatitis (Acute) Ischemic cardiomyopathy (Chronic) Multi-vessel coronary artery stenosis (Chronic) NSVT (nonsustained ventricular tachycardia) (Chronic) Peripheral neuropathy (Chronic) ST elevation (STEMI) myocardial infarction (Resolved) Surgical History History of cardiac catheterization (Inactive) History of hip replacement (Inactive) History of inguinal hernia repair (Inactive) History of total left hip arthroplasty Family History Father Myocardial infarction Denies family history of Ovarian cancer Prostate cancer Breast cancer Colorectal cancer Social History Preferred Language: Danish Communication Ability: Effective Visual Impairment: No Limitations Hearing Ability: Normal Department Mgr Required: No Beliefs That Will Affect Care: None marital status: Current Living Situation: Spouse Other Information That Helps Us Care for You: No Feels Safe at Home: Yes Safety Concerns: Feels Safe At This Time Smoking Status: Never smoker Second Hand Exposure: No ; Hx Alcohol Use: No Hx Substance Use: No Review of Systems Review of Systems: All systems reviewed & are unremarkable except as noted in HPI & below Physical Exam Physical Exam: The patient is alert and oriented. Mood and affect appeared normal. He answered all questions appropriately. HEENT: Pupils are equal and reactive to light and accommodation. Extraocular movements are intact. The sclerae are anicteric. Neuro: Cranial nerves intact Neck: Patient's neck is supple. He has palpable carotid pulses bilaterally without bruits on auscultation. There is no evidence of jugular venous distention. The thyroid is not enlarged. Lungs: Apices clear. Reduced breath sounds right base. No expiratory wheezing. Normal respiratory effort. Cardiac: Heart demonstrates a regular rate and rhythm. Normal S1 and S2. No murmurs on examination. Pulses: The patient has palpable radial pulses bilaterally that are equal in intensity Extremities: There was no evidence of hypoperfusion. There is no cyanosis or clubbing. Wearing sequential compression devices. Skin: I did not appreciate any rashes on examination today. Results & Data ([facility]) Vital Signs (Past 12 Hours) Vital Signs Temp Pulse Pulse Pulse Resp BP Pulse Ox 05/05/19 19:30 36.5 C 70 18 131/86 94 05/05/19 15:50 36.2 C L 80 20 106/70 95 05/05/19 15:38 71 05/05/19 13:41 72 05/05/19 11:10 36.2 C L 72 18 113/74 97 05/05/19 10:29 72 Laboratory Results Abnormal Lab Results 05/04/19 05/04/19 05/05/19 20:12 20:29 07:31 WBC RBC Hgb Hct MCV MCH MCHC RDW Std Deviation RDW Coeff of Kimberlee Plt Count MPV Sodium 139 Potassium 3.7 Chloride 103 Carbon Dioxide 31 Anion Gap 5.0 BUN 21 H Creatinine 1.17 Est Cr Clr Drug Dosing 52.0 Est GFR ( Amer) 69.8 Est GFR (Non-Af Amer) 60.2 BUN/Creatinine Ratio 17.8 Glucose 144 H POC Glucose 171 H 145 H Calcium 8.7 Phosphorus 2.9 Magnesium 1.7 L NT-Pro-B Natriuret Pep 05/05/19 05/05/19 05/05/19 09:09 09:09 11:56 WBC 6.18 RBC 4.41 L Hgb 12.7 L Hct 39.3 L MCV 89.1 MCH 28.8 MCHC 32.3 RDW Std Deviation 61.2 H RDW Coeff of Kimberlee 18.9 H Plt Count 263 MPV 10.9 H Sodium 139 Potassium 3.6 Chloride 103 Carbon Dioxide 30 Anion Gap 6.0 BUN 20 H Creatinine 1.07 Est Cr Clr Drug Dosing 56.8 Est GFR ( Amer) 77.7 Est GFR (Non-Af Amer) 67.1 BUN/Creatinine Ratio 18.9 Glucose 175 H POC Glucose 222 H Calcium 9.5 Phosphorus Magnesium 2.3 NT-Pro-B Natriuret Pep 98697 H 05/05/19 16:38 WBC RBC Hgb Hct MCV MCH MCHC RDW Std Deviation RDW Coeff of Kimberlee Plt Count MPV Sodium Potassium Chloride Carbon Dioxide Anion Gap BUN Creatinine Est Cr Clr Drug Dosing Est GFR ( Amer) Est GFR (Non-Af Amer) BUN/Creatinine Ratio Glucose POC Glucose 156 H Calcium Phosphorus Magnesium NT-Pro-B Natriuret Pep Diagnostic Findings Echocardiogram performed this admission revealed severely reduced LV systolic function with ejection fraction 25%. Chest x-ray obtained at the time of admission revealed large right pleural effusion. PG Care Time/CCT Total # of Minutes Spent Total Time Spent with Patient: Total time spent is greater than 50% in coordination of care (as documented) at patient's floor/unit and/or counseling patient: Coding Level of Care Code 23112 Initial Inpt Care Lvl 3 Diagnoses CHF (congestive heart failure) I50.9 CAD (coronary artery disease) I25.10 Ventricular tachycardia I47.2
[2019-05-05] MEDS ORDERED: INSULIN GLARGINE SOLOSTAR 100 UNITS/ML 3 ML PEN SC SCH (21:00)
[2019-05-06] MEDS: HEPARIN SOD 5,000 UNIT/0.5 ML VIAL SQ SCH ×3 (05:36→20:49)
[2019-05-06 08:31] LABS: BUN Creatinine Ratio 19.3 (10-20); Calcium 8.9 mg/dl (8.5-10.1); Creatinine Clr Calc Pharmacy 66.8 ml/min; Est GFR (African American) 94.5; Est GFR (Non-African American) 81.6; Magnesium 2.1 mg/dl (1.8-2.4); Potassium 3.2 mmol/L (3.5-5.1)
[2019-05-06] MEDS: INSULIN ASPART 100 UNITS/ML 3 ML PEN SC SCH ×4 (08:34→20:48)
[2019-05-06] MEDS: TRIAMCINOLONE ACET 0.1% CR 15 GM TUBE TOP SCH ×2 (08:34→20:50)
[2019-05-06] MEDS: ISOSORBIDE MONO EXTENDED REL 30 MG TABCR PO SCH (08:34)
[2019-05-06] MEDS: METOPROLOL SUCC 50MG EXT REL TAB PO SCH (08:35)
[2019-05-06] MEDS: ATORVASTATIN 40 MG TAB PO SCH (08:35)
[2019-05-06] MEDS: ASPIRIN 81 MG ECTAB PO SCH (08:35)
[2019-05-06] MEDS: SACUBITRIL-VALSARTAN 24-26 MG TAB PO SCH ×2 (08:36→21:38)
--- NOTE | 2019-05-06 09:15 | Pharmacy Report ---
Glycemic Control Progress Note - Date of Service May 06, 2019 - Scope Glycemic Pharmacist consulted for glycemic control to write orders per [facility] inpatient glycemic control protocol. - Objective Accuchecks BSG(last 24 hours):: 05/05/19 05/05/19 05/05/19 09:09 11:56 16:38 Glucose 175 H POC Glucose 222 H 156 H 05/05/19 05/06/19 05/06/19 20:17 07:24 07:29 Glucose 75 POC Glucose 130 H 81 HbA1c:: Hemoglobin A1c 8.5 % (4.5-5.6) H 05/03/19 06:31 - Recent Pertinent Medications The patient is currently receiving: * Basal insulin: Lantus 15 units every 24 hours * Correctional Insulin: Novolog Correction per scale ACHS Goal Range: Low 110 mg/dL - High 140 mg/dL Correction Factor: 30 mg/dL/unit * Prandial insulin: Per carb ratio of 1 unit per 10 grams CHO consumed - Outpatient Anti-Diabetic Meds metformin 1 gm PO BID - Assessment & Plan ASSESSMENT: * See progress note from 05/05/2019 for more background info, in short: * Pt receiving SQ basal bolus insulin regimen for hyperglycemia secondary to baseline DM (outpatient regimen on hold). * Patient is currently receiving an average of 20 units of insulin per day * 15 units of basal insulin * 5 units of prandial/correctional insulin * BSGs ranging 130 - 222 mg/dl over the past 24hrs * Changes needed to insulin regimen: * AM Fasting BSG = 81 mg/dl. This is below goal range for patient based on inpatient targets and co-morbidities. Therefore Basal insulin will be reduced by half. * Post-prandial BSGs are in range therefore no changes needed to CF/CR. * Total daily dose = <15 units. Adjusted appropriately. * Additional notes / comments: continue to hold metformin while receiving IV Lasix. PLAN FOR INPATIENT GLYCEMIC CONTROL: * Decreasing Lantus 7 units SQ HS * Continuing correction factor of 30 mg/dl/unit * Continuing carb ratio of 1 unit per 10 grams CHO consumed * Continuing goal range of Low 110 mg/dL - High 140 mg/dL RECOMMENDATIONS FOR DISCHARGE: * A1c 8.5% on 05/03/19 * Goal A1c <8-8.5% based on age/comorbidities * Resume metformin on discharge, as long as patient no longer in acute HF * Also consider addition of SGT-2 inhibitor due to heart failure diagnosis and HbA1C almost above goal Thank you.
[2019-05-06] MEDS ORDERED: POTASSIUM CHLORIDE 20 MEQ TABCR PO STA (09:33)
[2019-05-06] MEDS: FUROSEMIDE 40 MG in SYRINGE 0 ML IV SCH ×2 (10:13→18:33)
--- NOTE | 2019-05-06 14:15 | Cardiology Progress Note ---
Date of Service May 06, 2019 Assessment & Plan (1) CHF (congestive heart failure): He has a known severe ischemic cardiomyopathy. He has been maintained on outpatient diuretics, beta-blockade and Entresto.He had a good diuresis during the early part of his admission. However, over the past couple of days he is not appear to have affected reasonable diuresis. I would suggest increasing his Lasix to 80 milligrams twice daily. Pulmonology has been consulted in the our plans to drain his right pleural effusion. They will wait a few days after stopping Plavix. (2) CAD (coronary artery disease): Current symptoms are not suggestive of ischemia. He has been maintained on dual antiplatelet therapy, high-dose atorvastatin and Imdur (3) Ventricular tachycardia: No symptoms. No recurrent arrhythmia. As noted previously he does meet criteria for implantation of an ICD. I did discuss this topic with him yesterday. He is still undecided. It is possible this could be performed prior to discharge depending on patient's wishes. Continue beta-sherwin. Admission and Anticipated Discharge Date Admission Date: May 02, 2019 Subjective This morning the patient claims to be feeling better. He has a breathing is not back to normal. He did not appear to have difficulty sleeping. No chest pain. No dizziness. No sense of palpitation. Review of Systems Review of Systems: Per HPI Physical Exam Physical Exam: The patient is alert and oriented. Mood and affect appeared normal. He answered all questions appropriately. HEENT: Pupils are equal and reactive to light and accommodation. Extraocular movements are intact. The sclerae are anicteric. Neuro: Cranial nerves intact Neck: Patient's neck is supple. He has palpable carotid pulses bilaterally without bruits on auscultation. There is no evidence of jugular venous distention. The thyroid is not enlarged. Lungs: Apices clear. Reduced breath sounds right base. No expiratory wheezing. Normal respiratory effort. Cardiac: Heart demonstrates a regular rate and rhythm. Normal S1 and S2. No murmurs on examination. Pulses: The patient has palpable radial pulses bilaterally that are equal in intensity Extremities: There was no evidence of hypoperfusion. There is no cyanosis or clubbing. Wearing sequential compression devices. Skin: I did not appreciate any rashes on examination today. Results & Data ([facility]) Vital Signs (Past 12 Hours) Vital Signs Temp Pulse Resp BP Pulse Ox 05/06/19 11:21 36.2 C L 68 16 123/82 97 05/06/19 07:01 36.6 C 75 20 108/73 93 05/06/19 03:18 36.6 C 78 18 132/78 94 Laboratory Results Abnormal Lab Results 05/05/19 05/05/19 05/06/19 16:38 20:17 07:24 Sodium Potassium Chloride Carbon Dioxide Anion Gap BUN Creatinine Est Cr Clr Drug Dosing Est GFR ( Amer) Est GFR (Non-Af Amer) BUN/Creatinine Ratio Glucose POC Glucose 156 H 130 H 81 Calcium Magnesium 05/06/19 05/06/19 07:29 11:35 Sodium 140 Potassium 3.2 L Chloride 105 Carbon Dioxide 32 Anion Gap 3.0 BUN 18 Creatinine 0.91 Est Cr Clr Drug Dosing 66.8 Est GFR ( Amer) 94.5 Est GFR (Non-Af Amer) 81.6 BUN/Creatinine Ratio 19.3 Glucose 75 POC Glucose 188 H Calcium 8.9 Magnesium 2.1 PG Care Time/CCT Total # of Minutes Spent Total Time Spent with Patient: Total time spent is greater than 50% in coordination of care (as documented) at patient's floor/unit and/or counseling patient: Coding Level of Care Code 72607 Subseq Hosp Care Lvl 3 Diagnoses CHF (congestive heart failure) I50.9 CAD (coronary artery disease) I25.10 Coronary Disease-Associated Artery/Lesion type: [place] artery [place] vs. transplanted heart: [place] heart Associated angina: without angina Ventricular tachycardia I47.2 (1) CAD (coronary artery disease) Coronary Disease-Associated Artery/Lesion type: [place] artery [place] vs. transplanted heart: [place] heart Associated angina: without angina Qualified Code(s): I25.10 - Atherosclerotic heart disease of [place] coronary artery without angina pectoris
--- NOTE | 2019-05-06 15:09 | XRay Report ---
SINGLE VIEW CHEST CLINICAL HISTORY: Right pleural effusion. Dyspnea. FINDINGS: An AP, portable, upright chest radiograph is compared to study dated 05/02/2019. The examina tion is degraded by portable technique and patient rotation. The heart is enlarged noting atheroscl erotic calcification of the thoracic aorta. There is pulmonary vascular congestion. There are right l arger than left pleural effusions with associated bibasilar consolidation. No pneumothorax is seen. T he skeletal structures are osteopenic. Advanced degenerative change is noted in the shoulders and tho racic spine. The bony thorax is grossly intact. IMPRESSION: 1. Cardiomegaly with evidence of congestive failure. 2. Right larger left pleural effusions with associated bibasilar consolidation. This is similar to . ACT 112: Negative or not required by law. Electronically signed by: Bayron Morillo M.D. 05/06/2019 3:08 PM
--- NOTE | 2019-05-06 19:55 | Hospitalist Progress Note ---
Date of Service May 06, 2019 Assessment & Plan (1) Acute systolic (congestive) heart failure: Acute on chronic systolic dysfunction Patient has had history of EF 30-35% Currently 25-30% Will continue to diurese patient and monitor BMP/BNP Lasix 40mg IV BID, will increase to 80mg BID as per cardiology recommendations. Appreciate cardiology recommendations regarding this. Continue strict I&Os, daily weights, low salt diet, fluid restriction 1500ml (2) Pleural effusion, right: Discussed with Bayron Escobar. Plan for thoracocentesis once off clopidogrel for 5 days. Will diurese as much as possible in the mean time to see if it can be taken off with diuretics alone. (3) Hypoxia: Suspect mostly secondary to pleural effusion above. Aim O2 sats > 90%. (4) Ventricular tachycardia: Sustained 30 second episode in setting of hypomagnesemia and ischemic cardiomyopathy. Appreciate cardiology consult. ICD non-urgent at this time. (5) Hypokalemia: Given sustained VT will aim K > 4. (6) Hypomagnesemia: Aim Mg > 2. (7) Type II diabetes mellitus: HbA1c 8.5 this admission Appreciate pharmacy glycemic control (8) CAD (coronary artery disease): s/p [place] with stents 12/2017 Aspirin/Plavix/atorvastatin/Imdur (9) Hyperlipidemia: continue atorvastatin 80mg PO daily (10) Ischemic cardiomyopathy: ECHO LVEF 25-35% with wall motion abnormalities (11) Hypertension: Stable. Continue home meds (12) DVT prophylaxis: Heparin 5000 units SQ Q8H Repeat PTINR as unclear why this was raised on admission. Admission and Anticipated Discharge Date Admission Date: May 02, 2019 Subjective Patient reports no real change in his symptoms. Still remains significantly short of breath. No chest pain, fevers, chills, abdominal pain, nausea, vomiting. Discussed care with his daughter in law. All questions and concerns answered. Review of Systems Review of Systems: All systems reviewed & are unremarkable except as noted in HPI & below Physical Exam Constitutional: well developed and well nourished; no acute distress Eyes: + anicteric sclerae; normal pupil size ENMT: external ear and nose normal, oropharynx normal Neck: trachea midline Respiratory: normal respiratory effort Auscultation: + breath sounds absent (right base); no crackles and no wheezes Cardiovascular: Rate/Rhythm: regular rate and regular rhythm Heart Sounds: no murmur Extremities: normal capillary refill; no calf tenderness and no pedal edema Gastrointestinal (Abdomen): Inspection/Auscultation: abdomen normal to inspection and normal bowel sounds Percussion/Palpation: abdomen soft; abdomen nontender, no guarding and abdomen not rigid Musculoskeletal: no cyanosis or clubbing, extremities motor strength 5/5 Skin: no rashes, warm and dry Neurologic: moves all extremities and awake; not confused Psychiatric: A+Ox3, euthymic affect Results & Data ([facility]) Vital Signs (Past 12 Hours) Vital Signs Temp Pulse Pulse Resp BP Pulse Ox 05/06/19 19:51 36.9 C 72 20 115/76 92 05/06/19 16:22 65 05/06/19 16:03 36.4 C L 72 18 109/69 93 05/06/19 11:21 36.2 C L 68 16 123/82 97 PG Care Time/CCT Total # of Minutes Spent Total Time Spent with Patient: Total time spent is greater than 50% in coordination of care (as documented) at patient's floor/unit and/or counseling patient: Coding Level of Care Code 18856 Subseq Hosp Care Lvl 3 Diagnoses Acute systolic (congestive) heart failure I50.21 Pleural effusion, right J90 Hypoxia R09.02 Ventricular tachycardia I47.2 Hypokalemia E87.6 Hypomagnesemia E83.42 Type II diabetes mellitus E11.59 Diabetes mellitus complication detail: with other circulatory complications Diabetes mellitus complication status: with circulatory complication Diabetes mellitus buttermaker helper insulin use: without buttermaker helper use CAD (coronary artery disease) I25.10 Associated angina: without angina Coronary Disease-Associated Artery/Lesion type: [place] artery [place] vs. transplanted heart: [place] heart Hyperlipidemia E78.2 Hyperlipidemia type: mixed hyperlipidemia Ischemic cardiomyopathy I25.5 Hypertension I10 Hypertension type: essential hypertension DVT prophylaxis Z29.9 (1) Type II diabetes mellitus Diabetes mellitus complication detail: with other circulatory complications Diabetes mellitus complication status: with circulatory complication Diabetes mellitus usp insulin use: without buttermaker helper use Qualified Code(s): E11.59 - Type 2 diabetes mellitus with other circulatory complications (2) CAD (coronary artery disease) Associated angina: without angina Coronary Disease-Associated Artery/Lesion type: [place] artery [place] vs. transplanted heart: [place] heart Qualified Code(s): I25.10 - Atherosclerotic heart disease of [place] coronary artery without angina pectoris (3) Hyperlipidemia Hyperlipidemia type: mixed hyperlipidemia Qualified Code(s): E78.2 - Mixed hyperlipidemia (4) Hypertension Hypertension type: essential hypertension Qualified Code(s): I10 - Essential (primary) hypertension
[2019-05-06] MEDS: POTASSIUM CHLORIDE 20 MEQ TABCR PO SCH (20:46)
[2019-05-06] MEDS ORDERED: INSULIN GLARGINE SOLOSTAR 100 UNITS/ML 3 ML PEN SC SCH ×2 (21:00)
[2019-05-06] MEDS ORDERED: POTASSIUM CHLORIDE 20 MEQ TABCR PO SCH (21:00)
[2019-05-07] MEDS: HEPARIN SOD 5,000 UNIT/0.5 ML VIAL SQ SCH ×3 (06:09→21:04)
[2019-05-07 08:33] LABS: INR 1.4 (0.9-1.1); Partial Thromboplastin Ratio 1.3; Prothrombin Time 14.3 Seconds (9.0-12.0)
[2019-05-07 08:37] LABS: BUN Creatinine Ratio 19.6 (10-20); Calcium 8.9 mg/dl (8.5-10.1); Creatinine Clr Calc Pharmacy 69.9 ml/min; Est GFR (African American) 97.2; Est GFR (Non-African American) 83.8; Potassium 3.4 mmol/L (3.5-5.1)
--- NOTE | 2019-05-07 08:50 | Pharmacy Report ---
Glycemic Control Progress Note - Date of Service May 07, 2019 - Scope Glycemic Pharmacist consulted for glycemic control to write orders per [facility] inpatient glycemic control protocol. - Objective Accuchecks BSG(last 24 hours):: 05/06/19 05/06/19 05/06/19 11:35 16:42 20:22 Glucose POC Glucose 188 H 124 H 198 H 05/07/19 05/07/19 07:34 07:50 Glucose 62 L POC Glucose 72 HbA1c:: Hemoglobin A1c 8.5 % (4.5-5.6) H 05/03/19 06:31 - Recent Pertinent Medications The patient is currently receiving: * Basal insulin: Lantus 7 units every 24 hours * Correctional Insulin: Novolog Correction per scale ACHS Goal Range: Low 110 mg/dL - High 140 mg/dL Correction Factor: 30 mg/dL/unit * Prandial insulin: Per carb ratio of 1 unit per 10 grams CHO consumed - Outpatient Anti-Diabetic Meds metformin 1 gm PO BID - Assessment & Plan ASSESSMENT: * See progress note from 05/05/2019 for more background info, in short: * Pt receiving SQ basal bolus insulin regimen for hyperglycemia secondary to baseline DM (outpatient regimen on hold). * Patient is currently receiving an average of 23 units of insulin per day * 7 units of basal insulin * 16 units of prandial/correctional insulin * BSGs ranging 81 - 198 mg/dl over the past 24hrs * Changes needed to insulin regimen: * AM Fasting BSG = 72 mg/dl. This is goal range for patient based on inpatient targets and co-morbidities. Therefore Basal insulin will be discontinued. * Post-prandial BSGs are elevated after meal within normal range. Tighten CR. Reduce goal range so do not lose carbohydrate coverage with lower BSGs. * Total daily dose = <15 units. PLAN FOR INPATIENT GLYCEMIC CONTROL: * DECREASING Lantus * Continuing correction factor of 30 mg/dl/unit * TIGHTENING carb ratio to 1 unit per 8 grams CHO consumed * Continuing goal range of Low 110 mg/dL - High 140 mg/dL RECOMMENDATIONS FOR DISCHARGE: * see note from 05/06/2019 Thank you.
[2019-05-07] MEDS: INSULIN ASPART 100 UNITS/ML 3 ML PEN SC SCH ×4 (09:55→21:02)
[2019-05-07] MEDS: FUROSEMIDE 80 MG in SYRINGE 0 ML IV SCH ×2 (09:56→18:10)
[2019-05-07] MEDS: POTASSIUM CHLORIDE 20 MEQ TABCR PO SCH ×2 (09:56→21:06)
[2019-05-07] MEDS: TRIAMCINOLONE ACET 0.1% CR 15 GM TUBE TOP SCH ×2 (09:57→21:04)
[2019-05-07] MEDS: ASPIRIN 81 MG ECTAB PO SCH (09:57)
[2019-05-07] MEDS: SACUBITRIL-VALSARTAN 24-26 MG TAB PO SCH ×2 (09:57→21:07)
[2019-05-07] MEDS: ISOSORBIDE MONO EXTENDED REL 30 MG TABCR PO SCH (09:58)
[2019-05-07] MEDS: METOPROLOL SUCC 50MG EXT REL TAB PO SCH (09:59)
[2019-05-07] MEDS: ATORVASTATIN 40 MG TAB PO SCH (09:59)
--- NOTE | 2019-05-07 11:20 | Cardiology Progress Note ---
Date of Service May 07, 2019 Assessment & Plan (1) CHF (congestive heart failure): He did not seem to affect a significant diuresis yesterday on a lower dose of Lasix but the dose was increased today. His renal function is stable. Unclear when he will undergo thoracentesis. (2) CAD (coronary artery disease): Current symptoms are not suggestive of ischemia. He has been maintained on dual antiplatelet therapy, high-dose atorvastatin and Imdur (3) Ventricular tachycardia: No symptoms. No recurrence. He is been maintained on his beta-sherwin. I discussed with him on several occasions the utility of a defibrillator and he seems amenable. It is possible that this could be done tomorrow or Sunday. Admission and Anticipated Discharge Date Admission Date: May 02, 2019 Subjective This morning the patient claims to be feeling well. He states that his breathing is better since admission. His energy levels also improved. Minimal ambulation. Good appetite. Review of Systems Review of Systems: Per HPI. No pain. Physical Exam Physical Exam: The patient is alert and oriented. Mood and affect appeared normal. He answered all questions appropriately. HEENT: Pupils are equal and reactive to light and accommodation. Extraocular movements are intact. The sclerae are anicteric. Neuro: Cranial nerves intact Neck: Patient's neck is supple. He has palpable carotid pulses bilaterally without bruits on auscultation. There is no evidence of jugular venous distention. The thyroid is not enlarged. Lungs: Apices clear. Reduced breath sounds right base. No expiratory wheezing. Normal respiratory effort. Cardiac: Heart demonstrates a regular rate and rhythm. Normal S1 and S2. No murmurs on examination. Pulses: The patient has palpable radial pulses bilaterally that are equal in intensity Extremities: There was no evidence of hypoperfusion. There is no cyanosis or clubbing. No edema. Skin: I did not appreciate any rashes on examination today. Results & Data ([facility]) Vital Signs (Past 12 Hours) Vital Signs Temp Pulse Pulse Resp BP Pulse Ox 05/07/19 07:49 78 05/07/19 07:01 36.6 C 70 18 114/73 95 05/07/19 04:09 36.8 C 70 20 102/66 96 Laboratory Results Abnormal Lab Results 05/06/19 05/06/19 05/06/19 11:35 16:42 20:22 PT INR APTT PTT Ratio Sodium Potassium Chloride Carbon Dioxide Anion Gap BUN Creatinine Est Cr Clr Drug Dosing Est GFR ( Amer) Est GFR (Non-Af Amer) BUN/Creatinine Ratio Glucose POC Glucose 188 H 124 H 198 H Calcium 05/07/19 05/07/19 05/07/19 07:34 07:50 07:50 PT 14.3 H INR 1.4 H APTT 37.0 H PTT Ratio 1.3 Sodium 141 Potassium 3.4 L Chloride 106 Carbon Dioxide 31 Anion Gap 4.0 BUN 17 Creatinine 0.87 Est Cr Clr Drug Dosing 69.9 Est GFR ( Amer) 97.2 Est GFR (Non-Af Amer) 83.8 BUN/Creatinine Ratio 19.6 Glucose 62 L POC Glucose 72 Calcium 8.9 PG Care Time/CCT Total # of Minutes Spent Total Time Spent with Patient: Total time spent is greater than 50% in coordination of care (as documented) at patient's floor/unit and/or counseling patient: Coding Level of Care Code 16604 Subseq Obs Care Lvl 3 Diagnoses CHF (congestive heart failure) I50.9 CAD (coronary artery disease) I25.10 Associated angina: without angina Coronary Disease-Associated Artery/Lesion type: [place] artery [place] vs. transplanted heart: [place] heart Ventricular tachycardia I47.2 (1) CAD (coronary artery disease) Associated angina: without angina Coronary Disease-Associated Artery/Lesion type: [place] artery [place] vs. transplanted heart: [place] heart Qualified Code(s): I25.10 - Atherosclerotic heart disease of [place] coronary artery without angina pectoris
[2019-05-07] MEDS ORDERED: POTASSIUM CHLORIDE 20 MEQ TABCR PO STA (16:24)
--- NOTE | 2019-05-07 20:06 | Hospitalist Progress Note ---
Date of Service May 07, 2019 Assessment & Plan (1) Acute systolic (congestive) heart failure: Acute on chronic systolic dysfunction Patient has had history of EF 30-35% Currently 25-30% Lasix 80mg IV BID Appreciate cardiology recommendations regarding this. Continue strict I&Os, daily weights, low salt diet, fluid restriction 1500ml No significant change in weight since admission No output recorded for 05/04 therefore suspect I&Os inaccurate (2) Pleural effusion, right: Planned for thoracocentesis if significant effusion still present on Sunday once off clopidogrel for 5 days. (Need to place pulmonary consult on Sunday) Will try to diurese as much as possible prior to this to see if it resolves without intervention. (3) Hypoxia: Suspect mostly secondary to pleural effusion above. Aim O2 sats > 90%. (4) Ventricular tachycardia: Sustained 30 second episode in setting of hypomagnesemia and ischemic cardiomyopathy on 05/04. No recurrent episodes. Appreciate cardiology consult. ICD non-urgent at this time. (5) Hypokalemia: Given sustained VT will aim K > 4. (6) Hypomagnesemia: Aim Mg > 2. (7) Type II diabetes mellitus: HbA1c 8.5 this admission Appreciate pharmacy glycemic control (8) CAD (coronary artery disease): s/p [place] with stents 12/2017 Aspirin/Plavix/atorvastatin/Imdur (9) Hyperlipidemia: continue atorvastatin 80mg PO daily (10) Ischemic cardiomyopathy: ECHO LVEF 25-35% with wall motion abnormalities (11) Hypertension: Stable. Continue home meds (12) DVT prophylaxis: Heparin 5000 units SQ Q8H Repeat PTINR as unclear why this was raised on admission. Admission and Anticipated Discharge Date Admission Date: May 02, 2019 Anticipated date of discharge: 05/11/19 Subjective Patient reports little change to his shortness of breath. No chest pain, palpitation, orthopnea or PND. No recurrent VT on monitor. Review of Systems Review of Systems: All systems reviewed & are unremarkable except as noted in HPI & below Physical Exam Constitutional: well developed and well nourished; no acute distress Eyes: + anicteric sclerae; normal pupil size ENMT: external ear and nose normal, oropharynx normal Neck: trachea midline Respiratory: normal respiratory effort Auscultation: + breath sounds absent (right base); no crackles and no wheezes Cardiovascular: Rate/Rhythm: regular rate and regular rhythm Heart Sounds: no murmur Extremities: normal capillary refill; no calf tenderness and no pedal edema Gastrointestinal (Abdomen): Inspection/Auscultation: abdomen normal to inspect ion and normal bowel sounds Percussion/Palpation: abdomen soft; abdomen nontender, no guarding and abdomen not rigid Musculoskeletal: no cyanosis or clubbing, extremities motor strength 5/5 Skin: no rashes, warm and dry Neurologic: moves all extremities and awake; not confused Psychiatric: A+Ox3, euthymic affect Results & Data ([facility]) Vital Signs (Past 12 Hours) Vital Signs Temp Pulse Pulse Resp BP BP Pulse Ox 05/07/19 19:00 36.6 C 81 20 98/69 L 97 05/07/19 16:48 67 05/07/19 15:00 36.4 C L 66 16 97/63 L 97 05/07/19 11:38 36.3 C L 66 16 125/82 97 PG Care Time/CCT Total # of Minutes Spent Total Time Spent with Patient: Total time spent is greater than 50% in coordination of care (as documented) at patient's floor/unit and/or counseling patient: Coding Level of Care Code 66097 Subseq Hosp Care Lvl 2 Diagnoses Acute systolic (congestive) heart failure I50.21 Pleural effusion, right J90 Hypoxia R09.02 Ventricular tachycardia I47.2 Hypokalemia E87.6 Hypomagnesemia E83.42 Type II diabetes mellitus E11.59 Diabetes mellitus complication detail: with other circulatory complications Diabetes mellitus complication status: with circulatory complication Diabetes mellitus middle or intermediate school principal insulin use: without residential use CAD (coronary artery disease) I25.10 Associated angina: without angina Coronary Disease-Associated Artery/Lesion type: [place] artery [place] vs. transplanted heart: [place] heart Hyperlipidemia E78.2 Hyperlipidemia type: mixed hyperlipidemia Ischemic cardiomyopathy I25.5 Hypertension I10 Hypertension type: essential hypertension DVT prophylaxis Z29.9 (1) Type II diabetes mellitus Diabetes mellitus complication detail: with other circulatory complications Diabetes mellitus complication status: with circulatory complication Diabetes mellitus residential insulin use: without residential use Qualified Code(s): E11.59 - Type 2 diabetes mellitus with other circulatory complications (2) CAD (coronary artery disease) Associated angina: without angina Coronary Disease-Associated Artery/Lesion type: [place] artery [place] vs. transplanted heart: [place] heart Qualified Code(s): I25.10 - Atherosclerotic heart disease of [place] coronary artery without angina pectoris (3) Hyperlipidemia Hyperlipidemia type: mixed hyperlipidemia Qualified Code(s): E78.2 - Mixed hyperlipidemia (4) Hypertension Hypertension type: essential hypertension Qualified Code(s): I10 - Essential (primary) hypertension
[2019-05-08] MEDS: HEPARIN SOD 5,000 UNIT/0.5 ML VIAL SQ SCH ×2 (06:01→22:52)
[2019-05-08 07:15] LABS: BUN Creatinine Ratio 22.4 (10-20); Calcium 9.1 mg/dl (8.5-10.1); Creatinine Clr Calc Pharmacy 66.8 ml/min; Est GFR (African American) 94.5; Est GFR (Non-African American) 81.6; Magnesium 2.2 mg/dl (1.8-2.4); Potassium 3.9 mmol/L (3.5-5.1)
--- NOTE | 2019-05-08 08:16 | XRay Report ---
XR chest 1V portable CLINICAL HISTORY: pleural effusion ?decreasing in size COMPARISON STUDY: Chest radiograph May 06, 2019. FINDINGS: Incidental note is made of severe osteoarthritis of the glenohumeral joints. There is no pn eumothorax. Cardiomediastinal silhouette is stable. Pulmonary edema has mildly improved. Moderate to large right pleural effusion has slightly decreased. IMPRESSION: Slight decrease in pulmonary edema and a moderate to large right pleural effusion. ACT 112: Negative or not required by law. Electronically signed by: Josué Dickinson M.D. 05/08/2019 8:15 AM
[2019-05-08] MEDS: INSULIN ASPART 100 UNITS/ML 3 ML PEN SC SCH ×4 (08:30→21:46)
[2019-05-08] MEDS: POTASSIUM CHLORIDE 20 MEQ TABCR PO SCH ×2 (08:36→21:49)
[2019-05-08] MEDS: ASPIRIN 81 MG ECTAB PO SCH (08:36)
[2019-05-08] MEDS: METOPROLOL SUCC 50MG EXT REL TAB PO SCH (08:37)
[2019-05-08] MEDS: ISOSORBIDE MONO EXTENDED REL 30 MG TABCR PO SCH (08:37)
[2019-05-08] MEDS: SACUBITRIL-VALSARTAN 24-26 MG TAB PO SCH ×2 (08:38→22:52)
[2019-05-08] MEDS: ATORVASTATIN 40 MG TAB PO SCH (08:38)
--- NOTE | 2019-05-08 08:40 | Pre Anesthesia Assessment ---
Date of Service May 08, 2019 Pre Sedation Assessment Vital Signs Temp Pulse Pulse Resp BP BP Pulse Ox 05/08/19 07:08 36.7 C 70 20 131/67 96 05/08/19 07:00 68 05/08/19 06:11 104/67 05/08/19 04:36 74 05/08/19 04:28 36.4 C L 71 18 151/93 H 94 05/07/19 23:44 36.5 C 99 H 18 106/69 96 05/07/19 19:00 36.6 C 81 20 98/69 L 97 05/07/19 16:48 67 05/07/19 15:00 36.4 C L 66 16 97/63 L 97 05/07/19 11:38 36.3 C L 66 16 125/82 97 Cardiovascular + regular rate Respiratory + respiratory effort normal Pre-Sedation Airway Assessment Smoking Status: Never smoker Hx Sleep Apnea: No Hx Difficult Intubation: No Short, Thick Neck: No Thyromental Distance: > or= 3.5 Finger Breadths Oral Cavity: + WNL Mallampati Class: III ASA: ASA3 Procedure Planning Contraindications for Sedation: none Current Medications Reviewed: Yes Notes The planned sedation has been discussed with the patient. Informed Consent was obtained. I have identified the patient, determined the appropriateness of sedation and have assessed the patient immediately prior to the procedure. All medicine(s) and interventions are by my order.
[2019-05-08] MEDS: FUROSEMIDE 80 MG in SYRINGE 0 ML IV SCH ×2 (08:46→17:39)
[2019-05-08] MEDS: TRIAMCINOLONE ACET 0.1% CR 15 GM TUBE TOP SCH ×2 (10:18→21:48)
[2019-05-08] MEDS ORDERED: BUPIVACAINE 0.5 % 5 MG/1 ML PF 10ML VIAL ONE (11:59)
[2019-05-08] MEDS ORDERED: LIDOCAINE HCL 1% 20 ML VIAL ONE (11:59)
[2019-05-08] MEDS ORDERED: fentaNYL citrate 100 MCG/2 ML VIAL ONE (12:00)
[2019-05-08] MEDS ORDERED: CEFAZOLIN 250 MG/ML 1 GM VIAL ONE (12:00)
[2019-05-08] MEDS ORDERED: MIDAZOLAM HCL 5 MG/ML 1 ML VIAL ONE (12:00)
[2019-05-08] MEDS ORDERED: BACITRACIN INJ 50,000 UNIT VIAL ONE (12:00)
--- NOTE | 2019-05-08 13:09 | Electrophysiology Report ---
Date of Service May 08, 2019 Electrophysiology Procedure Electrophysiology Procedure Report Procedure performed: Implantation of single-chamber ICD Staff credit union manager: Hiro Yepez MD Indication: The patient is a 74-year-old gentleman with a history of ischemic cardiomyopathy and persistently low ejection fraction. He was also noted on telemetry monitoring during this admission to have sustained ventricular tachycardia. He was therefore felt to be a good candidate for an ICD implant secondary prevention against sudden cardiac . Procedure in detail: The patient was informed of the risks benefits and alternatives to the intended procedure and she wished to proceed. [] was taken to the electrophysiology suite in a fasting state. A preoperative antibiotic had been administered. The patient was monitored electrocardiographically throughout today's procedure and conscious sedation was administered per protocol. The left upper pectoral area is prepped and draped in usual sterile fashion. This area was anesthetized using subcutaneous administration of a xylocaine solution. An incision was made at this site and carried down to the prepectoralis fascia using sharp dissection. Electrocautery was also employed for dissection as well as for hemostasis. A device pocket was fashioned tissues above the pectoralis muscle. Subsequent to this maneuver the left axillary vein was accessed using modified Seldinger technique. A sheath was placed over a guidewire at this site and used to facilitate passage of the pacing leads to the right ventricular apex under fluoroscopic guidance. Adequate sensing and threshold parameters were obtained prior to Active fixation of the lead to the endocardial surface. The proximal portion of the lead was then sutured the prepectoral fascia using nonabsorbable suture. The device pocket was irrigated with antibiotic solution. The lead was then attached to the device. The device and lead were then placed in an antibiotic impregnated pouch. The device and lead were then placed in the pocket and pocket was closed in 3 layers of absorbable suture. Steri-Strips and sterile dressing were applied. The device was tested noninvasively prior to conclusion the procedure. The patient tolerated procedure well there no immediate complications. Equipment used: New pulse generator: Nitro [employer]er [employer]. Model number: [id number] serial number [id number] Right ventricular lead: Nitro Worker [employer]. Model number: 6935M serial number [id number] Measured data: Right ventricular lead: R waves measured 4.5 mV. Pacing threshold 0.75 V at 0.4 ms with a pacing impedance of 380 ohms Impression: Successful implantation of single-chamber ICD [facility] [place]rophysiology codes ICD Procedure 1: ICD: 39659 Insert single or dual ICD system PG Moderate Sedation Codes Moderate Sedation Codes Procedure 1: Sedation/Anesthesia: 94813 Mod Sedation by the same physician;Init15 Min Child Age 5 & Up Procedure 2: Sedation/Anesthesia: 51727 Mod Sedation by the same physician; Ea [id number] Minutes
[2019-05-08] MEDS ORDERED: ACETAMINOPHEN 325 MG TAB PO PRN (13:10)
[2019-05-08] MEDS ORDERED: OXYCODONE HCL IR 5 MG TAB (IMMEDIATE RELEASE) PO PRN (13:10)
--- NOTE | 2019-05-08 13:10 | Post Anesthesia Assessment ---
Date of Service May 08, 2019 Post Sedation Assessment Vital Signs Temp Pulse Pulse Resp BP BP Pulse Ox 05/08/19 11:17 36.2 C L 66 18 107/67 97 05/08/19 07:08 36.7 C 70 20 131/67 96 05/08/19 07:00 68 05/08/19 06:11 104/67 05/08/19 04:36 74 05/08/19 04:28 36.4 C L 71 18 151/93 H 94 05/07/19 23:44 36.5 C 99 H 18 106/69 96 05/07/19 19:00 36.6 C 81 20 98/69 L 97 05/07/19 16:48 67 05/07/19 15:00 36.4 C L 66 16 97/63 L 97 Recovery Score Activity: Moves 4 extremities Respiration: Deep Breath/Cough Circulation: +/-20% PreAnes Value Consciousness: Fully Awake Oxygen Saturation: > 92% On Room Air Discharge Sedation Level of Care: Fast Track Phase II Post Sedation Plan On clinical assessment, the patient appears to have tolerated the sedation without complications. Patient is recovering as anticipated. Patient will continue to be monitored by nursing and may be discharged when sedation discharge criteria are met per below protocol. Upon Completions of procedure up to 15 minutes continue every 5 minute vital signs and the P.A.R. score; then discharge to a Phase I or Fast Track to Phase II per the following guidelines: * Discharge Patient to appropriate Phase II area if PAR is 8 or greater or return to pre- procedure baseline. The post - procedure orders will be as directed. * If PAR score is less than 8 or not return to pre-procedure baseline then patient will follow Phase I monitoring till PAR is reached for Phase II. The Phase I may be done in procedure room or may call to secure a Phase I area. * If naloxone or flumazenil are used for reversal, hold in Phase I for continued monitoring from when last reversal dose was given for a minimum of 60 minutes or longer pending the nurse and/or physician discretion of patient condition before discharge to Phase II. Please call the Sedation Physician to re-evaluate and complete post-note for discharge to Phase II area. Do NOT discharge from procedure sedation or Phase 1 until post- sedation evaluation note is complete by procedure /sedation MD Sedation Discharge Instructions to be given to the patient at discharge to home.
--- NOTE | 2019-05-08 18:24 | Hospitalist Progress Note ---
Date of Service May 08, 2019 Assessment & Plan (1) Acute systolic (congestive) heart failure: Acute on chronic systolic dysfunction. Patient has had history of EF 30-35%; currently 25-30%. Continue diuresis with Lasix 80mg IV BID. Appreciate cardiology recommendations regarding this. Patient previously incontinent therefore I&Os inaccurate, now more accurate after hernandez cath inserted for urinary retention. (2) Pleural effusion, right: Planned for thoracocentesis if significant effusion still present on Sunday once off clopidogrel for 5 days. (Need to place pulmonary consult on Sunday) Will try to diurese as much as possible prior to this to see if it resolves without intervention. (3) Hypoxia: Suspect mostly secondary to pleural effusion above. Aim O2 sats > 90%. (4) Ventricular tachycardia: Sustained 30 second episode in setting of hypomagnesemia and ischemic cardiomyopathy on 05/04. No recurrent episodes. Appreciate cardiology consult. Patient elected to have ICD which was placed today for ischemic cardiomyopathy with HFrEF. (5) Hypokalemia: Given sustained VT will aim K > 4. (6) Hypomagnesemia: Aim Mg > 2. (7) Type II diabetes mellitus: HbA1c 8.5 this admission Appreciate pharmacy glycemic control (8) CAD (coronary artery disease): s/p OR with stents 12/2017 Aspirin/Plavix/atorvastatin/Imdur (9) Hyperlipidemia: continue atorvastatin 80mg PO daily (10) Ischemic cardiomyopathy: ECHO LVEF 25-35% with wall motion abnormalities (11) Hypertension: Stable. Continue home meds (12) DVT prophylaxis: Heparin 5000 units SQ Q8H (13) Urinary retention: Admission and Anticipated Discharge Date Admission Date: May 02, 2019 Anticipated date of discharge: 05/11/19 Subjective No acute concerns or questions. No acute events overnight. Review of Systems Review of Systems: All systems reviewed & are unremarkable except as noted in HPI & below Physical Exam Constitutional: well developed and well nourished; no acute distress Eyes: + anicteric sclerae; normal pupil size Respiratory: normal respiratory effort Auscultation: + breath sounds absent (right base) and + crackles; no wheezes Cardiovascular: Rate/Rhythm: regular rate and regular rhythm Heart Sounds: no murmur Extremities: normal capillary refill; no calf tenderness and no pedal edema Gastrointestinal (Abdomen): Inspection/Auscultation: abdomen normal to inspection and normal bowel sounds Percussion/Palpation: abdomen soft; abdomen nontender, no guarding and abdomen not rigid Musculoskeletal: no cyanosis or clubbing, extremities motor strength 5/5 Skin: no rashes, warm and dry Neurologic: moves all extremities and awake; not confused Psychiatric: A+Ox3, euthymic affect Results & Data ([facility]) Vital Signs (Past 12 Hours) Vital Signs Temp Pulse Pulse Pulse Resp BP BP 05/08/19 18:11 81 05/08/19 15:41 36.5 C 72 18 156/96 H 05/08/19 15:25 66 20 134/66 05/08/19 15:01 81 05/08/19 14:25 36.5 C 64 20 126/72 05/08/19 13:55 65 18 144/99 H 05/08/19 13:40 36.3 C L 63 18 123/77 05/08/19 13:30 64 18 122/78 05/08/19 13:15 64 18 120/78 05/08/19 11:17 36.2 C L 66 18 107/67 05/08/19 07:08 36.7 C 70 20 131/67 05/08/19 07:00 68 Pulse Ox 05/08/19 18:11 05/08/19 15:41 98 05/08/19 15:25 96 05/08/19 15:01 05/08/19 14:25 96 05/08/19 13:55 05/08/19 13:40 05/08/19 13:30 92 05/08/19 13:15 92 05/08/19 11:17 97 05/08/19 07:08 96 05/08/19 07:00 PG Care Time/CCT Total # of Minutes Spent Total Time Spent with Patient: Total time spent is greater than 50% in coordination of care (as documented) at patient's floor/unit and/or counseling patient: Coding Level of Care Code 20989 Subseq Hosp Care Lvl 2 Diagnoses Acute systolic (congestive) heart failure I50.21 Pleural effusion, right J90 Hypoxia R09.02 Ventricular tachycardia I47.2 Hypokalemia E87.6 Hypomagnesemia E83.42 Type II diabetes mellitus E11.59 Diabetes mellitus complication detail: with other circulatory complications Diabetes mellitus complication status: with circulatory complication Diabetes mellitus residential insulin use: without historian dramatic arts use CAD (coronary artery disease) I25.10 Associated angina: without angina Coronary Disease-Associated Artery/Lesion type: [place] artery [place] vs. transplanted heart: [place] heart Hyperlipidemia E78.2 Hyperlipidemia type: mixed hyperlipidemia Ischemic cardiomyopathy I25.5 Hypertension I10 Hypertension type: essential hypertension DVT prophylaxis Z29.9 Urinary retention R33.9 (1) Type II diabetes mellitus Diabetes mellitus complication detail: with other circulatory complications Diabetes mellitus complication status: with circulatory complication Diabetes mellitus residential insulin use: without residential use Qualified Code(s): E11.59 - Type 2 diabetes mellitus with other circulatory complications (2) CAD (coronary artery disease) Associated angina: without angina Coronary Disease-Associated Artery/Lesion type: [place] artery [place] vs. transplanted heart: [place] heart Qualified Code(s): I25.10 - Atherosclerotic heart disease of [place] coronary artery without angina pectoris (3) Hyperlipidemia Hyperlipidemia type: mixed hyperlipidemia Qualified Code(s): E78.2 - Mixed hyperlipidemia (4) Hypertension Hypertension type: essential hypertension Qualified Code(s): I10 - Essential (primary) hypertension
[2019-05-08] MEDS: TAMSULOSIN HCL 0.4 MG CAP PO SCH (21:48)
[2019-05-08] MEDS: CEFAZOLIN 1000MG 1,000 MG/7.5 ML SYR IV SCH (21:48)
[2019-05-09] MEDS: CEFAZOLIN 1000MG 1,000 MG/7.5 ML SYR IV SCH ×2 (04:18→12:35)
[2019-05-09 06:29] LABS: BUN Creatinine Ratio 20.9 (10-20); Calcium 9.2 mg/dl (8.5-10.1); Creatinine Clr Calc Pharmacy 59.6 ml/min; Est GFR (African American) 82.4; Est GFR (Non-African American) 71.1; Potassium 3.8 mmol/L (3.5-5.1)
[2019-05-09] MEDS: HEPARIN SOD 5,000 UNIT/0.5 ML VIAL SQ SCH ×3 (06:54→20:37)
[2019-05-09] MEDS: FUROSEMIDE 80 MG in SYRINGE 0 ML IV SCH ×2 (08:14→16:49)
[2019-05-09] MEDS: SACUBITRIL-VALSARTAN 24-26 MG TAB PO SCH ×2 (08:14→20:36)
[2019-05-09] MEDS: ATORVASTATIN 40 MG TAB PO SCH (08:15)
[2019-05-09] MEDS: ISOSORBIDE MONO EXTENDED REL 30 MG TABCR PO SCH (08:15)
[2019-05-09] MEDS: ASPIRIN 81 MG ECTAB PO SCH (08:15)
[2019-05-09] MEDS: METOPROLOL SUCC 50MG EXT REL TAB PO SCH (08:15)
[2019-05-09] MEDS: POTASSIUM CHLORIDE 20 MEQ TABCR PO SCH ×2 (08:15→20:37)
[2019-05-09] MEDS: TRIAMCINOLONE ACET 0.1% CR 15 GM TUBE TOP SCH ×2 (08:16→20:36)
[2019-05-09] MEDS: INSULIN ASPART 100 UNITS/ML 3 ML PEN SC SCH ×4 (08:17→20:37)
--- NOTE | 2019-05-09 09:48 | Cardiology Progress Note ---
Date of Service May 09, 2019 Assessment & Plan (1) CHF (congestive heart failure): He appears to have had a significant diuresis yesterday without any change in his renal function. Perhaps we simply had more accurate determination of his urinary output. However, it would seem reasonable continue him on same dose of Lasix today. Chest x-ray pending we will see what the pleural effusion looks like after his diuresis yesterday. (2) CAD (coronary artery disease): No symptoms. (3) Ventricular tachycardia: No recurrent VT. Successful implantation of single-chamber ICD yesterday without complication. Patient should keep the wound dry for at least a week. He should refrain from lifting the left arm above the shoulder for 6 weeks. I will arrange for follow- up in our clinic next week for wound evaluation.. Subjective This morning patient claims to be feeling well. He has minimal discomfort at the device implant site in left pectoral area. He claims to have improvement in his breathing overall. Did have some difficulty with urinary retention last night and underwent implantation of a Hale catheter. Minimal ambulation. Review of Systems Review of Systems: Per HPI Physical Exam Physical Exam: The patient is alert and oriented. Mood and affect appeared normal. He answered all questions appropriately. HEENT: Pupils are equal and reactive to light and accommodation. Extraocular movements are intact. The sclerae are anicteric. Neuro: Cranial nerves intact Neck: Patient's neck is supple. He has palpable carotid pulses bilaterally without bruits on auscultation. There is no evidence of jugular venous distention. The thyroid is not enlarged. Lungs: Apices clear. Reduced breath sounds right base. No expiratory wheezing. Normal respiratory effort. Chest: Device implant site with mild ecchymosis but no significant hematoma or erythema. No drainage. Cardiac: Heart demonstrates a regular rate and rhythm. Normal S1 and S2. No murmurs on examination. Pulses: The patient has palpable radial pulses bilaterally that are equal in intensity Extremities: There was no evidence of hypoperfusion. There is no cyanosis or clubbing. No edema. Skin: I did not appreciate any rashes on examination today. Results & Data Vital Signs (Past 12 Hours) Vital Signs Temp Pulse Resp BP BP Pulse Ox 05/09/19 07:20 36.3 C L 76 18 120/82 97 05/09/19 03:00 36.3 C L 81 20 158/86 H 95 05/08/19 23:30 36.8 C 78 20 127/85 98 Laboratory Results Abnormal Lab Results 05/08/19 05/08/19 05/08/19 11:24 13:42 16:09 Sodium Potassium Chloride Carbon Dioxide Anion Gap BUN Creatinine Est Cr Clr Drug Dosing Est GFR ( Amer) Est GFR (Non-Af Amer) BUN/Creatinine Ratio Glucose POC Glucose 128 H 83 130 H Calcium 05/08/19 05/09/19 05/09/19 20:07 05:26 07:23 Sodium 138 Potassium 3.8 Chloride 101 Carbon Dioxide 32 Anion Gap 5.0 BUN 21 H Creatinine 1.02 Est Cr Clr Drug Dosing 59.6 Est GFR ( Amer) 82.4 Est GFR (Non-Af Amer) 71.1 BUN/Creatinine Ratio 20.9 H Glucose 128 H POC Glucose 210 H 135 H Calcium 9.2 Diagnostic Findings Chest x-ray pending Performed complete device interrogation which revealed normal sensing threshold parameters on the single-chamber ICD. (1) CAD (coronary artery disease) Coronary Disease-Associated Artery/Lesion type: [place] artery [place] vs. transplanted heart: [place] heart Associated angina: without angina Qualified Code(s): I25.10 - Atherosclerotic heart disease of [place] coronary artery without angina pectoris
--- NOTE | 2019-05-09 10:06 | XRay Report ---
XR chest 2V PA/lateral CLINICAL HISTORY: EXACT TIME ORDERED Evaluate for pneumothorax and l COMPARISON STUDY: 05/08/2019 FINDINGS: Cardiac pacemaker placed with leads in good position. Pre-existing unchanged right pleural effusion. Parenchymal prominence left base unchanged. No evidence pneumothorax. IMPRESSION: Cardiac pacemaker placed in good position. No evidence of pneumothorax. Unchanged right pleural effusion. ACT 112: Negative or not required by law. The above report was generated using voice recognition software. It may contain grammatical, syntax or spelling errors. Electronically signed by: Robin Gabriel M.D. 05/09/2019 10:05 AM
--- NOTE | 2019-05-09 17:03 | Pulmonary Consultation ---
Date of Consultation May 09, 2019 Assessment & Plan (1) Bilateral pleural effusion: --Bilateral pleural effusion Moderate amount on the right side. This is likely secondary to patient's underlying systolic CHF. Patient has been on diuresis but the pleural effusion is not improving. Patient is -3 L since the time of admission. Continue with aggressive diuresis. Patient was explained today regarding the fluid on the right side and the possibility of thoracentesis if it does not improve with diuresis. Patient states that he does not want any procedure to be done right now if the fluid does not improve with diuresis with next couple of days then he will think about thoracentesis. Risk and benefits of the procedure were explained to the patient in depth. All questions were answered in the best way possible. --Systolic CHF Patient is on Lasix 80 mg twice daily Could consider metolazone Cardiology on board, follow the recommendation --Dyspnea on exertion Likely secondary to above Treat underlying cause Plan: We will repeat chest x-ray tomorrow and speak with the patient again regarding the right-sided pleural effusion. Please note the above document was generated using voice recognition software. It may contain grammatical, syntax or spelling errors. (2) Systolic CHF: (3) Dyspnea on exertion: History of Present Illness Attending Physician: Dave Hu MD History of Present Illness 74-year-old male with past medical history of systolic CHF ejection fraction 20 to 25%,Coronary artery disease, hypertension was admitted to the hospital with complaints of progressive shortness of breath. Pulmonology was consulted because of the right-sided pleural effusion. Since admission patient has been diuresed with total In-N-Out being -3 L. Today at the time of examination patient states that the shortness of breath is improved from before. Denies any chest pain, no dizziness, no palpitations, no cough. No fever or chills. No recent travel history. Denies any night sweats. No dysuria, no diarrhea. No headache. Patient says appetite is improved since coming to the hospital. Swelling in the lower extremities have improved. Social history: Non-smoker, no illicit drug use, no alcohol use. 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 Denies any seasonal allergies. No birds at home. No personal or family history of lung cancer. Allergies Allergy/AdvReac Type Severity Reaction Status Date / Time No Known Drug Allergies Allergy Verified 05/02/19 10:39 Home Medications Home Medications Medication Instructions Recorded Confirmed Type aspirin [Ecotrin Low Strength] 81 mg PO QAM #90 tab 12/29/17 05/02/19 Rx nitroglycerin [Nitrostat] 0.4 mg SUBLINGUAL Q5M PRN #20 tab 12/29/17 05/02/19 Rx clopidogrel 75 mg tablet 75 mg PO DAILY #90 tab 10/14/18 05/02/19 Rx atorvastatin 80 mg tablet 80 mg PO DAILY #90 tab 01/01/19 05/02/19 Rx metoprolol succinate 100 mg 100 mg PO DAILY #90 tab 01/01/19 05/02/19 Rx tablet,extended release 24 hr triamcinolone acetonide 0.1 % 1 appln TOP BID #30 gm 02/04/19 05/02/19 Rx topical cream furosemide 40 mg tablet 40 mg PO DAILY tab 02/26/19 05/02/19 History sacubitril 24 mg-valsartan 26 mg 1 tab PO BID #60 tab 02/26/19 05/02/19 Rx tablet isosorbide mononitrate 30 mg 30 mg PO DAILY #90 tab 04/28/19 05/02/19 Rx tablet,extended release 24 hr metformin 500 mg tablet,extended 1,000 mg PO BID #360 tab 04/28/19 05/02/19 Rx release 24 hr Patient History Medical History Acute systolic CHF (congestive heart failure) (Resolved) Diabetes (Chronic) Diabetes (Chronic) Dyspnea on exertion (Acute) HTN (hypertension) (Chronic) Hypertension (Chronic) Infective dermatitis (Acute) Ischemic cardiomyopathy (Chronic) Multi-vessel coronary artery stenosis (Chronic) NSVT (nonsustained ventricular tachycardia) (Chronic) Peripheral neuropathy (Chronic) ST elevation (STEMI) myocardial infarction (Resolved) Surgical History History of cardiac catheterization (Inactive) History of hip replacement (Inactive) History of inguinal hernia repair (Inactive) History of total left hip arthroplasty Family History Father Myocardial infarction Denies family history of Ovarian cancer Prostate cancer Breast cancer Colorectal cancer Social History Preferred Language: Czech Communication Ability: Effective Visual Impairment: No Limitations Hearing Ability: Normal Compliance Tester Required: No Beliefs That Will Affect Care: None marital status: Current Living Situation: Spouse Feels Safe at Home: Yes Smoking Status: Never smoker Second Hand Exposure: No ; Hx Alcohol Use: No Hx Substance Use: No Review of Systems Review of Systems: All systems reviewed & are unremarkable except as noted in HPI & below Physical Exam Physical Exam: Constitutional: No acute distress HEENT: EOMI, PERRLA Respiratory system: Decreased air entry on the right side, positive bilateral lower lobe crackles, no wheeze, no rhonchi CVS: S1-S2 positive, no murmurs or gallops Abdomen: Soft, nontender, nondistended, positive bowel sounds x4 Extremities: +2 pulses bilaterally radialis/ dorsalis pedis, no cyanosis, +1 edema bilateral lower extremity Neuro: Awake alert oriented x3 Psych: Normal mood and affect G/U: Positive Hale Skin: no rashes, warm and dry Lymphatic: no cervical or axillary lymphadenopathy Results & Data ([facility]) Vital Signs (Past 12 Hours) Vital Signs Temp Pulse Pulse Resp BP BP Pulse Ox 05/09/19 16:51 103/71 05/09/19 16:00 71 05/09/19 15:33 36.6 C 70 19 97/67 L 95 05/09/19 11:12 36.3 C L 70 18 100/69 94 05/09/19 08:00 76 05/09/19 07:20 36.3 C L 76 18 120/82 97 05/05/19 09:09 05/09/19 05:26 PG Care Time/CCT Total # of Minutes Spent Total Time Spent with Patient: Total time spent is greater than 50% in coordination of care (as documented) at patient's floor/unit and/or counseling patient: [place] [address] Initial Inpt Care Lvl 3 Patient Type New Diagnoses Bilateral pleural effusion J90 Systolic CHF I50.20 Dyspnea on exertion R06.09
[2019-05-09] MEDS: TAMSULOSIN HCL 0.4 MG CAP PO SCH (20:37)
--- NOTE | 2019-05-10 | Hospitalist Progress Note ---
Date of Service May 09, 2019 Assessment & Plan (1) Acute systolic (congestive) heart failure: Acute on chronic systolic dysfunction. Patient has had history of EF 30-35%; currently 25-30%. Continue diuresis with Lasix 80mg IV BID, Cr remains stable. Appreciate cardiology recommendations regarding this. Patient previously incontinent therefore I&Os inaccurate, now more accurate after hernandez cath inserted for urinary retention. 24 hour -ve 3306ml. Continue Entresto -> unable to increase with current BP. (2) Pleural effusion, right: Planned for thoracocentesis if significant effusion still present on Sunday once off clopidogrel for 5 days. No significant change in effusion on CXR today. Pulmonology consult placed. Hold heparin in AM. (3) Hypoxia: Suspect mostly secondary to pleural effusion above. Aim O2 sats > 90%. (4) Ventricular tachycardia: Sustained 30 second episode in setting of hypomagnesemia and ischemic cardiomyopathy on 05/04. No recurrent episodes. Appreciate cardiology consult. Patient elected to have ICD which was placed today for ischemic cardiomyopathy with HFrEF. (5) Hypokalemia: Given sustained VT will aim K > 4. (6) Hypomagnesemia: Aim Mg > 2. (7) Type II diabetes mellitus: HbA1c 8.5 this admission Appreciate pharmacy glycemic control (8) Urinary retention: Started on tamsulosin and urinary hernandez catheter placed. (9) CAD (coronary artery disease): s/p NC with stents 12/2017 Aspirin/Plavix/atorvastatin/Imdur (10) Hyperlipidemia: continue atorvastatin 80mg PO daily (11) Ischemic cardiomyopathy: ECHO LVEF 25-35% with wall motion abnormalities (12) Hypertension: Stable. Continue home meds (13) DVT prophylaxis: Heparin 5000 units SQ Q8H Admission and Anticipated Discharge Date Admission Date: May 02, 2019 Anticipated date of discharge: 05/11/19 Subjective No acute concerns or questions. No acute events overnight. Review of Systems Review of Systems: All systems reviewed & are unremarkable except as noted in HPI & below Physical Exam Constitutional: well developed and well nourished; no acute distress Eyes: + anicteric sclerae; normal pupil size ENMT: external ear and nose normal, oropharynx normal Mouth: oral mucous membranes not dry Neck: trachea midline Respiratory: normal respiratory effort Auscultation: + breath sounds absent (right base) and + crackles (mild right mid zone); no wheezes Cardiovascular: Rate/Rhythm: regular rate and regular rhythm Heart Sounds: no murmur Extremities: normal capillary refill; no calf tenderness and no pedal edema Gastrointestinal (Abdomen): Inspection/Auscultation: abdomen normal to inspection and normal bowel sounds Percussion/Palpation: abdomen soft; abdomen nontender, no guarding and abdomen not rigid Musculoskeletal: no cyanosis or clubbing, extremities motor strength 5/5 Skin: excoriation red all over body improving, dressing removed over pacemaker site Neurologic: moves all extremities and awake; not confused Psychiatric: A+Ox3, euthymic affect Results & Data ([facility]) Vital Signs (Past 12 Hours) Vital Signs Temp Pulse Pulse Resp BP BP Pulse Ox 05/09/19 23:00 36.5 C 79 20 102/92 94 05/09/19 20:26 36.6 C 74 14 109/72 93 05/09/19 16:51 103/71 05/09/19 16:00 71 05/09/19 15:33 36.6 C 70 19 97/67 L 95 PG Care Time/CCT Total # of Minutes Spent Total Time Spent with Patient: Total time spent is greater than 50% in coordination of care (as documented) at patient's floor/unit and/or counseling patient: Coding Level of Care Code 13574 Subseq Hosp Care Lvl 2 Diagnoses Acute systolic (congestive) heart failure I50.21 Pleural effusion, right J90 Hypoxia R09.02 Ventricular tachycardia I47.2 Hypokalemia E87.6 Hypomagnesemia E83.42 Type II diabetes mellitus E11.59 Diabetes mellitus fpc insulin use: without fpc use Diabetes mellitus complication status: with circulatory complication Diabetes mellitus complication detail: with other circulatory complications Urinary retention R33.9 CAD (coronary artery disease) I25.10 Coronary Disease-Associated Artery/Lesion type: [place] artery [place] vs. transplanted heart: [place] heart Associated angina: without angina Hyperlipidemia E78.2 Hyperlipidemia type: mixed hyperlipidemia Ischemic cardiomyopathy I25.5 Hypertension I10 Hypertension type: essential hypertension DVT prophylaxis Z29.9 (1) Type II diabetes mellitus Diabetes mellitus fpc insulin use: without marine oil terminal superintendent use Diabetes mellitus complication status: with circulatory complication Diabetes mellitus complication detail: with other circulatory complications Qualified Code(s): E11.59 - Type 2 diabetes mellitus with other circulatory complications (2) CAD (coronary artery disease) Coronary Disease-Associated Artery/Lesion type: [place] artery [place] vs. transplanted heart: [place] heart Associated angina: without angina Qualified Code(s): I25.10 - Atherosclerotic heart disease of [place] coronary artery without angina pectoris (3) Hyperlipidemia Hyperlipidemia type: mixed hyperlipidemia Qualified Code(s): E78.2 - Mixed hyperlipidemia (4) Hypertension Hypertension type: essential hypertension Qualified Code(s): I10 - Essential (primary) hypertension
[2019-05-10] MEDS: HEPARIN SOD 5,000 UNIT/0.5 ML VIAL SQ SCH (06:36)
--- NOTE | 2019-05-10 07:28 | XRay Report ---
XR chest 1V portable HISTORY: Follow-up effusion COMPARISON: Chest 05/09/2019. FINDINGS: No pneumothorax. Moderate right pleural effusion and right basilar densities persist. The h eart remains mildly enlarged. There is mild central pulmonary vascular congestion without overt edema . Left-sided single lead pacemaker is again noted. IMPRESSION: No significant change in the moderate right pleural effusion and right basilar densities. ACT 112: Negative or not required by law. Electronically signed by: Cristian Rangel M.D. 05/10/2019 7:26 AM
[2019-05-10] MEDS: INSULIN ASPART 100 UNITS/ML 3 ML PEN SC SCH ×4 (07:45→21:57)
[2019-05-10 07:46] LABS: BUN Creatinine Ratio 21.7 (10-20); Calcium 8.8 mg/dl (8.5-10.1); Creatinine Clr Calc Pharmacy 56.8 ml/min; Est GFR (African American) 77.7; Est GFR (Non-African American) 67.1; Potassium 3.8 mmol/L (3.5-5.1)
[2019-05-10] MEDS: METOPROLOL SUCC 50MG EXT REL TAB PO SCH (08:57)
[2019-05-10] MEDS: FUROSEMIDE 80 MG in SYRINGE 0 ML IV SCH ×2 (08:57→16:49)
[2019-05-10] MEDS: ATORVASTATIN 40 MG TAB PO SCH (08:57)
[2019-05-10] MEDS: SACUBITRIL-VALSARTAN 24-26 MG TAB PO SCH ×2 (08:57→21:20)
[2019-05-10] MEDS: ISOSORBIDE MONO EXTENDED REL 30 MG TABCR PO SCH (08:57)
[2019-05-10] MEDS: POTASSIUM CHLORIDE 20 MEQ TABCR PO SCH ×2 (08:57→21:20)
[2019-05-10] MEDS: TRIAMCINOLONE ACET 0.1% CR 15 GM TUBE TOP SCH ×2 (08:59→21:19)
[2019-05-10] MEDS: ASPIRIN 81 MG ECTAB PO SCH (08:59)
--- NOTE | 2019-05-10 09:14 | Cardiology Progress Note ---
Date of Service May 10, 2019 Assessment & Plan (1) CHF (congestive heart failure): He continues to have a brisk diuresis on his current dose of Lasix. His volume status is certainly improved. In fact, if he did not have his right pleural effusion would suggest he could be discharged on a twice daily dose of Lasix, perhaps 40 mg twice daily. It seems unclear this time with a he will undergo thoracentesis. According to the x-ray there is no significant change in the right pleural effusion. If there are no plans for thoracentesis he should restart his Plavix. (2) CAD (coronary artery disease): No symptoms. (3) Ventricular tachycardia: No recurrent VT. Successful implantation of single-chamber ICD yesterday without complication. Patient should keep the wound dry for at least a week. He should refrain from lifting the left arm above the shoulder for 6 weeks. I will arrange for follow- up in our clinic next week for wound evaluation.. Subjective This more the patient claims to be feeling well. His main complaint was some foot discomfort over the course of the evening. This appeared to involve the plantar aspect of his feet. This seems to have resolved this morning with only some residual stiffness. He denies significant breathing difficulty. He ambulated little bit yesterday. No other pain. Tolerating a diet. No symptoms of the device implant site in left pectoral area. Review of Systems Review of Systems: Per HPI Physical Exam Physical Exam: The patient is alert and oriented. Mood and affect appeared normal. He answered all questions appropriately. HEENT: Pupils are equal and reactive to light and accommodation. Extraocular movements are intact. The sclerae are anicteric. Neuro: Cranial nerves intact Neck: Patient's neck is supple. He has palpable carotid pulses bilaterally without bruits on auscultation. There is no evidence of jugular venous distention. The thyroid is not enlarged. Lungs: Apices clear. Reduced breath sounds right base. No expiratory wheezing. Normal respiratory effort. Chest: Device implant site with mild ecchymosis but no significant hematoma or erythema. No drainage. Cardiac: Heart demonstrates a regular rate and rhythm. Normal S1 and S2. No murmurs on examination. Pulses: The patient has palpable radial pulses bilaterally that are equal in intensity Extremities: There was no evidence of hypoperfusion. There is no cyanosis or clubbing. No edema. Skin: I did not appreciate any rashes on examination today. Results & Data Vital Signs (Past 12 Hours) Vital Signs Temp Pulse Pulse Pulse Resp BP Pulse Ox 05/10/19 08:00 36.6 C 81 18 114/77 95 05/10/19 07:20 89 05/10/19 04:28 74 05/10/19 04:10 36.4 C L 84 21 98/68 L 87 L 05/09/19 23:00 36.5 C 79 20 102/92 94 Laboratory Results Abnormal Lab Results 05/09/19 05/09/19 05/09/19 11:14 16:15 20:05 Sodium Potassium Chloride Carbon Dioxide Anion Gap BUN Creatinine Est Cr Clr Drug Dosing Est GFR ( Amer) Est GFR (Non-Af Amer) BUN/Creatinine Ratio Glucose POC Glucose 211 H 216 H 184 H Calcium 05/10/19 05/10/19 06:45 07:27 Sodium 137 Potassium 3.8 Chloride 102 Carbon Dioxide 29 Anion Gap 6.0 BUN 23 H Creatinine 1.07 Est Cr Clr Drug Dosing 56.8 Est GFR ( Amer) 77.7 Est GFR (Non-Af Amer) 67.1 BUN/Creatinine Ratio 21.7 H Glucose 139 H POC Glucose 143 H Calcium 8.8 Diagnostic Findings Chest x-ray today demonstrated persistent right pleural effusion. (1) CAD (coronary artery disease) Coronary Disease-Associated Artery/Lesion type: [place] artery [place] vs. transplanted heart: [place] heart Associated angina: without angina Qualified Code(s): I25.10 - Atherosclerotic heart disease of [place] coronary artery without angina pectoris
--- NOTE | 2019-05-10 09:48 | Pharmacy Report ---
Pharmacy Glycemic Short Note 2 - Date of Service May 10, 2019 - Glycemic Short BSG Results (Last 24 hours): 05/09/19 05/09/19 05/09/19 11:14 16:15 20:05 Glucose POC Glucose 211 H 216 H 184 H 05/10/19 05/10/19 06:45 07:27 Glucose 139 H POC Glucose 143 H OUTPATIENT ANTIDIABETIC REGIMEN: * Metformin 1 gm BID * A1c = 8.5 % 05/03/19 ASSESSMENT: 05/10/19 * Blood sugars ranging 128-216mg/dl over past 24 hours, 26 units of insulin used, all bolus. * Blood sugars rising with meals throughout the day, tighten CF/CR. 05/06/19 * 74 y/o male admitted for acute congestive heart failure. He has been continued on his outpatient metformin, with BSGs ranging from 145-222 mg/dL in the past 24 hours. Pharmacy discussed transition to SQ basal/bolus insulin at [facility] today and was subsequently consulted for glycemic control. * Pt is maintained on oral antidiabetic agents as an outpatient * Oral agents are not recommended for inpatient use d/t drug interactions, changing PO intake, and difficulty titrating for acute hyper/hypoglycemia. ADA recommends re-initiating outpatient oral agents 1-2 days prior to discharge if/when appropriate if they were held on admission. * Will hold oral agents for admission and utilize SQ basal bolus insulin regimen which is the recommended regimen for inpatient glycemic control. * Will initiate weight based insulin dosing for insulin patti patient and titrate based on BSG trends. PLAN FOR INPATIENT GLYCEMIC CONTROL: * Hold outpatient oral diabetes medications * Bolus insulin * NovoLog per scale ACHS or Q6hrs while NPO * Goal Range: Low 110 mg/dL - High 140 mg/dL * TIGHTEN: Correction Factor: 20 mg/dL/unit * TIGHTEN: Nutritional / Prandial insulin per carb ratio of 1 unit per 7 grams CHO consumed Discharge Recommendations: * A1c 8.5% on 05/03/19 * Goal A1c <8-8.5% based on age/comorbidities * Resume metformin on discharge, as long as patient no longer in acute HF
--- NOTE | 2019-05-10 12:54 | Procedure Note ---
Procedure Note Date of Service May 10, 2019 Procedure: Diagnostic therapeutic ultrasound-guided catheter thoracentesis Crozer Operator: Dr. Son Saldaña Indication: Pleural effusion Consent: Signed by patient and verified with timeout prior to procedure Anesthesia: 1% lidocaine without epinephrine local. Procedure: Consent was verified and timeout performed. Appropriate imaging studies were reviewed prior to the procedure. Patient was placed in a seated position and limited thoracic ultrasound was performed of the right chest. See separate imaging. Appropriate site above the diaphragm for thoracentesis was selected. The skin was prepped and draped in normal sterile fashion. Lidocaine was used for local analgesia. Fluid was aspirated via the finder needle. A small skin laurence was made with the scalpel and the catheter over the needle apparatus was advanced over the rib into the pleural space. Using the syringe one-way valve system, a total of 1750 mL's of turbid yellow fluid was removed. The catheter was removed and observed to be intact. A sterile dressing was applied. Post procedure chest x-ray was ordered. Good area sliding was appreciated post procedure with the help of ultrasound. Fluid was sent for labs, culture and cytology. The patient tolerated the procedure without obvious complication Coding CPT Codes Pulmonary/Thoracic - Pulmonary and Thoracic: 22412 Thoracentesis w imaging ([id number]) [facility] [place] Codes ([place]) Pulmonary/Thoracic Procedure 1: Pulmonary and Thoracic: 93056 Thoracentesis w imaging
--- NOTE | 2019-05-10 12:56 | Pulmonology Progress Note ---
Date of Service May 10, 2019 Assessment & Plan (1) Bilateral pleural effusion: --Bilateral pleural effusion Moderate amount on the right side. This is likely secondary to patient's underlying systolic CHF. Patient has been on diuresis but the pleural effusion is not improving. Patient is -4.7 L since the time of admission. Continue with aggressive diuresis. Status post thoracentesis 05/10/2019. Approximately 1750 mL of turbid yellow fluid was removed from the right side. Patient tolerated the procedure well. Follow-up labs and cytology --Systolic CHF Patient is on Lasix 80 mg twice daily Could consider metolazone Cardiology on board, follow the recommendation --Dyspnea on exertion Likely secondary to above Treat underlying cause Please note the above document was generated using voice recognition software. It may contain grammatical, syntax or spelling errors. (2) Systolic CHF: (3) Dyspnea on exertion: Subjective Patient seen and examined at bedside. No acute distress, no adverse events overnight. States her shortness of breath is improved. Denies any chest pain, no headache, no nausea, no vomiting. Good appetite. Urinating well. No headache, no blurry vision Review of Systems Review of Systems: All systems reviewed & are unremarkable except as noted in HPI & below Physical Exam Physical Exam: Constitutional: No acute distress HEENT: EOMI, PERRLA Respiratory system: Decreased air entry on the right side, positive bilateral lower lobe crackles, no wheeze, no rhonchi CVS: S1-S2 positive, no murmurs or gallops Abdomen: Soft, nontender, nondistended, positive bowel sounds x4 Extremities: +2 pulses bilaterally radialis/ dorsalis pedis, no cyanosis, no edema bilateral lower extremity Neuro: Awake alert oriented x3 Psych: Normal mood and affect G/U: Positive Hale Skin: no rashes, warm and dry Lymphatic: no cervical or axillary lymphadenopathy Results & Data ([facility]) Vital Signs (Past 12 Hours) Vital Signs Temp Pulse Pulse Pulse Pulse Resp BP 05/10/19 11:44 36.3 C L 68 16 97/67 L 05/10/19 08:00 36.6 C 81 18 05/10/19 07:20 89 05/10/19 04:28 74 05/10/19 04:10 36.4 C L 84 21 BP Pulse Ox 05/10/19 11:44 96 05/10/19 08:00 114/77 95 05/10/19 07:20 05/10/19 04:28 05/10/19 04:10 98/68 L 87 L 05/05/19 09:09 05/10/19 06:45 PG Care Time/CCT Total # of Minutes Spent Total Time Spent with Patient: Total time spent is greater than 50% in coordination of care (as documented) at patient's floor/unit and/or counseling patient: Coding Level of Care Code 70709 Subseq Hosp Care Lvl 3 Diagnoses Bilateral pleural effusion J90 Systolic CHF I50.20 Dyspnea on exertion R06.09
[2019-05-10 13:27] LABS: Glucose Pleural Fluid 179 mg/dl
[2019-05-10 13:30] LABS: Albumin Level 2.9 gm/dl (3.4-5.0); Bilirubin,Total 1.1 mg/dl (0.2-1); Total Protein 7.9 gm/dl (6.4-8.2)
[2019-05-10 13:34] LABS: Amylase Pleural Fluid 43 U/L; LDH Pleural Fluid 99 U/L; Total Protein Pleural Fluid 3.4 g/dl
[2019-05-10 13:38] LABS: Appearance Pleural Fluid CLOUDY; Basophils, Fluid 0 %; Color Pleural Fluid YELLOW; Eosinophils, Fluid 0 %; Lymphocytes, Fluid 24 %; Mono,Macrophage,Mesothelial 31 %; Neutrophils, Fluid 45 %; RBC Pleural Fluid (A) < 3000 /uL; Source Pleural Fluid RIGHT LUNG; WBC Pleural Fluid (A) 185 /uL
--- NOTE | 2019-05-10 13:53 | XRay Report ---
XR chest 1V portable HISTORY: S/P Thoracentesis COMPARISON: Chest 05/10/2019. FINDINGS: Significant decrease in size in the small right pleural effusion status post thoracentesis. No pneumothorax. The heart remains mildly enlarged. Trace left pleural effusion persists. Bibasilar densities have improved. There is mild central pulmonary vascular congestion without overt edema. Lef t-sided single lead pacemaker. IMPRESSION: 1. Decrease in size in the small right pleural effusion status post thoracentesis. No pneumothorax. 2. Improvement in the pulmonary vascular congestion. ACT 112: Negative or not required by law. Electronically signed by: Cristian Rangel M.D. 05/10/2019 1:52 PM
--- NOTE | 2019-05-10 19:40 | Hospitalist Progress Note ---
Date of Service May 10, 2019 Assessment & Plan (1) Acute systolic (congestive) heart failure: Acute on chronic systolic dysfunction. Patient has had history of EF 30-35%; currently 25-30%. Cr and BUN mildly starting to trend up therefore will cut back to 40mg BID tomorrow. Appreciate cardiology recommendations regarding this. Patient previously incontinent therefore I&Os inaccurate, now more accurate after hernandez cath inserted for urinary retention. 24 hour -ve 2873ml. Continue Metoprolol succinate + Entresto -> unable to increase with current BP. (2) Pleural effusion, right: Thoracocentesis planned for today as discussed with Dr Saldaña. Restart clopidogrel in AM (3) Hypoxia: Once pleural effusion drained will try to wean of O2. May need 2 step prior to discharge. (4) Ventricular tachycardia: Sustained 30 second episode in setting of hypomagnesemia and ischemic cardiomyopathy on 05/04. No recurrent episodes. Appreciate cardiology consult. Patient elected to have ICD which was placed 05/07 for ischemic cardiomyopathy with HFrEF. (5) Hypokalemia: Given sustained VT will aim K > 4. (6) Hypomagnesemia: Aim Mg > 2. (7) Type II diabetes mellitus: HbA1c 8.5 this admission Appreciate pharmacy glycemic control with Novolog correction and carb coverage (8) Urinary retention: Started on tamsulosin and urinary hernandez catheter placed. Remove hernandez cath tonight for trial without catheter (9) CAD (coronary artery disease): s/p IA with stents 12/2017 Aspirin/Plavix/atorvastatin/Imdur (10) Hyperlipidemia: continue atorvastatin 80mg PO daily (11) Ischemic cardiomyopathy: ECHO LVEF 25-35% with wall motion abnormalities (12) Hypertension: Stable. Continue home meds (13) DVT prophylaxis: Holding heparin s/p thoracocentesis Admission and Anticipated Discharge Date Admission Date: May 02, 2019 Need for PT/OT evals after thoracocentesis to determine if patient able to return safely home. Previously he has refused this. If unable to wean O2 will need 2 step. Anticipated date of discharge: 05/11/19 Subjective No acute events overnight. No concerns or questions at this time. Awaiting thoracocentesis today. No improvement with shortness of breath with diuresis given since admission. He denies dry mouth. No lightheadedness, chest pain. Orthopnea at baseline. Review of Systems Review of Systems: All systems reviewed & are unremarkable except as noted in HPI & below Physical Exam Constitutional: well developed and well nourished; no acute distress Eyes: + anicteric sclerae; normal pupil size ENMT: external ear and nose normal, oropharynx normal Neck: trachea midline Respiratory: normal respiratory effort Auscultation: + breath sounds absent (right base) and + crackles (mild right mid zone); no wheezes Cardiovascular: Rate/Rhythm: regular rate and regular rhythm Heart Sounds: no murmur Extremities: normal capillary refill; no calf tenderness and no pedal edema Gastrointestinal (Abdomen): Inspection/Auscultation: abdomen normal to inspection and normal bowel sounds Percussion/Palpation: abdomen soft; abdomen nontender, no guarding and abdomen not rigid Skin: Improving excoriation red Neurologic: moves all extremities and awake; not confused Psychiatric: A+Ox3, euthymic affect Results & Data ([facility]) Vital Signs (Past 12 Hours) Vital Signs Temp Pulse Pulse Pulse Resp BP BP 05/10/19 19:14 36.4 C L 74 19 115/65 05/10/19 19:00 36.4 C L 74 18 115/65 05/10/19 15:25 36.3 C L 69 16 99/66 L 05/10/19 14:51 77 05/10/19 11:44 36.3 C L 68 16 97/67 L 05/10/19 08:00 36.6 C 81 18 114/77 Pulse Ox 05/10/19 19:14 93 05/10/19 19:00 93 05/10/19 15:25 932 H 05/10/19 14:51 05/10/19 11:44 96 05/10/19 08:00 95 PG Care Time/CCT Total # of Minutes Spent Total Time Spent with Patient: Total time spent is greater than 50% in coordination of care (as documented) at patient's floor/unit and/or counseling patient: Coding Level of Care Code 61269 Subseq Hosp Care Lvl 2 Diagnoses Acute systolic (congestive) heart failure I50.21 Pleural effusion, right J90 Hypoxia R09.02 Ventricular tachycardia I47.2 Hypokalemia E87.6 Hypomagnesemia E83.42 Type II diabetes mellitus E11.59 Diabetes mellitus watermelon 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 transplanted heart: [place] heart Associated angina: without angina Hyperlipidemia E78.2 Hyperlipidemia type: mixed hyperlipidemia Ischemic cardiomyopathy I25.5 Hypertension I10 Hypertension type: essential hypertension DVT prophylaxis Z29.9 (1) Type II diabetes mellitus Diabetes mellitus watermelon harvesting supervisor insulin use: without skilled nursing use Diabetes mellitus complication status: with circulatory complication Diabetes mellitus complication detail: with other circulatory complications Qualified Code(s): E11.59 - Type 2 diabetes mellitus with other circulatory complications (2) CAD (coronary artery disease) Coronary Disease-Associated Artery/Lesion type: [place] artery [place] vs. transplanted heart: [place] heart Associated angina: without angina Qualified Code(s): I25.10 - Atherosclerotic heart disease of [place] coronary artery without angina pectoris (3) Hyperlipidemia Hyperlipidemia type: mixed hyperlipidemia Qualified Code(s): E78.2 - Mixed hyperlipidemia (4) Hypertension Hypertension type: essential hypertension Qualified Code(s): I10 - Essential (primary) hypertension
[2019-05-10] MEDS: TAMSULOSIN HCL 0.4 MG CAP PO SCH (21:20)
[2019-05-11 06:59] LABS: Hematocrit (blood only) 38.5 % (42-52); Hemoglobin 12.6 g/dL (14.0-18.0); Mean Corpuscular Hemoglobin 29.2 pg (25-34); Mean Corpuscular Hgb Conc 32.7 g/dL (32-36); Mean Corpuscular Volume 89.3 fL (80-100); Mean Platelet Volume 10.6 fL (7.4-10.4); Platelet Count 239 K/uL (130-400); RDW Coefficient of Variation 18.6 % (11.5-14.5); RDW Standard Deviation 61.3 fL (36.4-46.3); Red Blood Count 4.31 M/uL (4.7-6.1); White Blood Count 8.53 K/uL (4.8-10.8)
[2019-05-11 07:37] LABS: BUN Creatinine Ratio 23.4 (10-20); Creatinine Clr Calc Pharmacy 55.3 ml/min; Est GFR (African American) 75.2; Est GFR (Non-African American) 64.9
[2019-05-11] MEDS: INSULIN ASPART 100 UNITS/ML 3 ML PEN SC SCH ×4 (07:59→20:57)
[2019-05-11] MEDS: METOPROLOL SUCC 50MG EXT REL TAB PO SCH (08:00)
[2019-05-11] MEDS: ASPIRIN 81 MG ECTAB PO SCH (08:00)
[2019-05-11] MEDS: POTASSIUM CHLORIDE 20 MEQ TABCR PO SCH (08:00)
[2019-05-11] MEDS: ATORVASTATIN 40 MG TAB PO SCH (08:00)
[2019-05-11] MEDS: ISOSORBIDE MONO EXTENDED REL 30 MG TABCR PO SCH (08:01)
[2019-05-11] MEDS: TRIAMCINOLONE ACET 0.1% CR 15 GM TUBE TOP SCH ×2 (08:02→22:42)
[2019-05-11] MEDS: SACUBITRIL-VALSARTAN 24-26 MG TAB PO SCH ×2 (08:59→20:57)
[2019-05-11] MEDS ORDERED: FUROSEMIDE 40 MG in SYRINGE 0 ML IV SCH (09:00)
[2019-05-11] MEDS ORDERED: CLOPIDOGREL BISULFATE 75 MG TAB PO SCH (09:00)
--- NOTE | 2019-05-11 11:38 | Pulmonology Progress Note ---
Date of Service May 11, 2019 Assessment & Plan (1) Pleural effusion, right: Impression: 74-year-old male with a history of heart failure presenting with shortness of breath and pleural effusion. Patient is status post thoracentesis on the right. Fluid is borderline exudative but likely r epresentative of the patient's underlying fluid overload and heart failure. Await pleural fluid cytology. Recommendation: 1. Pleural effusion: No evidence of reaccumulation on follow-up chest x-ray and no pneumothorax. Patient will need to follow-up with his primary care provider for pleural fluid cytology unless this comes back while he still in the hospital. Continue diuretics 2. Hypoxemic respiratory failure: Multifactorial. Continue to wean oxygen as tolerated to keep saturations 88 to 90%. 3. Pulmonary will sign off at this time. Again the pleural fluid studies will need to be followed up. Feel free to contact us if we can be of additional assistance. (2) Systolic CHF: (3) Hypoxia: Subjective Patient seen and examined. No complaints. He thinks his breathing is better after thoracentesis yesterday. No pain at the [place] site. No cough, sputum production, or hemoptysis. Review of Systems Review of Systems: Unchanged from prior Physical Exam Physical Exam: Constitutional: No acute distress HEENT: EOMI, PERRLA Respiratory system: Decreased air entry on the right side, positive bilateral lower lobe crackles, no wheeze, no rhonchi CVS: S1-S2 positive, no murmurs or gallops Abdomen: Soft, nontender, nondistended, positive bowel sounds x4 Extremities: +2 pulses bilaterally radialis/ dorsalis pedis, no cyanosis, no edema bilateral lower extremity Neuro: Awake alert oriented x3 Psych: Normal mood and affect G/U: Positive [place] Skin: no rashes, warm and dry Lymphatic: no cervical or axillary lymphadenopathy Results & Data ([facility]) Vital Signs (Past 12 Hours) Vital Signs Temp Pulse Resp BP Pulse Ox 05/11/19 07:23 36.4 C L 94 H 20 118/80 94 05/11/19 04:00 36.7 C 89 18 94/62 L 95 Laboratory Results 05/11/19 06:50 05/11/19 06:50 Pleural fluid studies: Cell count differential, 45% neutrophils, 24% lymphocytes, 31% mesothelial cells. Pleural pH 7.5 Pleural total protein 3.4 Pleural LDH 99 Pleural glucose 179 Pleural amylase 43 Gram stain showed moderate white blood cells with no organisms Diagnostic Findings Post procedure chest x-ray from yesterday was independently reviewed. Pacemaker is noted. There is a small degree of blunting of the right costophrenic angle but the effusion overall appears significantly improved. PG Care Time/CCT Total # of Minutes Spent Total Time Spent with Patient: Total time spent is greater than 50% in coordination of care (as documented) at patient's floor/unit and/or counseling patient: Coding Level of Care Code 37956 Subseq Hosp Care Lvl 2 Diagnoses Pleural effusion, right J90 Systolic CHF I50.20 Hypoxia R09.02
--- NOTE | 2019-05-11 15:02 | Hospitalist Progress Note ---
Date of Service May 11, 2019 Assessment & Plan (1) Acute systolic (congestive) heart failure: Acute on chronic systolic dysfunction. Patient has had history of EF 30-35%; currently 25-30%. Currently appears dry. Suspect sudden change due to hernandez cath insertion and pleural effusion drained. Reduce to Lasix 40mg PO daily tomorrow. Appreciate cardiology recommendations regarding this. Patient previously incontinent and in urinary retention therefore I&Os inaccurate, now more accurate after hernandez cath inserted for urinary retention. 24 hour -ve 2331 ml. Continue Metoprolol succinate + Entresto -> unable to increase with current BP. (2) Pleural effusion, right: Thoracocentesis 05/09 1.8L, suspect secondary to heart failure in setting of urinary retention. Pending cytology and microbiology. No organisms on gram stain. (3) Hypoxia: Secondary to pleural effusion/heart failure, now resolved (4) Ventricular tachycardia: Sustained 30 second episode in setting of hypomagnesemia and ischemic cardiomyopathy on 05/04. No recurrent episodes. Appreciate cardiology consult. Patient elected to have ICD which was placed 05/07 for ischemic cardiomyopathy with HFrEF. (5) Paroxysmal atrial flutter: Occurred overnight. Discussed with Dr Yepez. Rate controlled on metoprolol already. Will start on Eliquis for anticoagulation and discontinue clopidogrel. (6) Hypokalemia: Given sustained VT episode will aim K > 4. (7) Hypomagnesemia: Aim Mg > 2. (8) Type II diabetes mellitus: HbA1c 8.5 this admission Appreciate pharmacy glycemic control with Novolog correction and carb coverage (9) Urinary retention: Failed trial without catheter overnight. PVR >600ml bladder scan today. Hernandez cath placed. Will remain on tamsulosin (newly started this admission). Needs to follow up with urology outpatient. (10) CAD (coronary artery disease): s/p [facility] with stents 12/2017 Aspirin/Eliquis/atorvastatin/Imdur (11) Hyperlipidemia: continue atorvastatin 80mg PO daily (12) Ischemic cardiomyopathy: ECHO LVEF 25-35% with wall motion abnormalities (13) Hypertension: Low normal but asymptomatic. Hopefully will improve with reduce lasix. (14) Excoriation of multiple sites: Significantly improved since admission (15) Physical deconditioning: Continue PT and OT. Likely to need rehabilitation on discharge. (16) DVT prophylaxis: Start Eliquis Admission and Anticipated Discharge Date Admission Date: May 02, 2019 Anticipated date of discharge: 05/12/19 Subjective Dry mouth today. Shortness of breath much improved after thoracocentesis. No chest pain, orthopnea, PND, palpitations or leg swelling. No longer requiring oxygen to maintain saturations. He reports generally efeling week since he has been in hospital for such a long time. Paroxysmal atrial flutter rate controlled overnight on telemetry. Review of Systems Review of Systems: All systems reviewed & are unremarkable except as noted in HPI & below Physical Exam Constitutional: well developed and well nourished; no acute distress Eyes: + anicteric sclerae; normal pupil size ENMT: Mouth: + dry oral mucous membranes Neck: trachea midline Respiratory: normal respiratory effort Auscultation: + crackles (Right base); breath sounds present, no diminished lung sounds and no wheezes Cardiovascular: Rate/Rhythm: regular rate and regular rhythm Heart Sounds: no murmur Extremities: normal capillary refill; no calf tenderness and no pedal edema Gastrointestinal (Abdomen): Inspection/Auscultation: abdomen normal to inspection and normal bowel sounds Percussion/Palpation: abdomen soft; abdomen nontender, no guarding and abdomen not rigid Musculoskeletal: no cyanosis or clubbing, extremities motor strength 5/5 Skin: Excoriation red all over improving. Neurologic: moves all extremities and awake; not confused Psychiatric: A+Ox3, euthymic affect Results & Data ([facility]) Vital Signs (Past 12 Hours) Vital Signs Temp Pulse Resp BP BP Pulse Ox 05/11/19 11:58 36.6 C 87 20 94/67 L 95 05/11/19 07:23 36.4 C L 94 H 20 118/80 94 05/11/19 04:00 36.7 C 89 18 94/62 L 95 PG Care Time/CCT Total # of Minutes Spent Total Time Spent with Patient: Total time spent is greater than 50% in coordination of care (as documented) at patient's floor/unit and/or counseling patient: Coding Level of Care Code 94400 Subseq Hosp Care Lvl 3 Diagnoses Acute systolic (congestive) heart failure I50.21 Pleural effusion, right J90 Hypoxia R09.02 Ventricular tachycardia I47.2 Paroxysmal atrial flutter I48.92 Hypokalemia E87.6 Hypomagnesemia E83.42 Type II diabetes mellitus E11.59 Diabetes mellitus [facility] insulin use: without emt intermediate use Diabetes mellitus complication status: with circulatory complication Diabetes mellitus complication detail: with other circulatory complications Urinary retention R33.9 CAD (coronary artery disease) I25.10 Coronary Disease-Associated Artery/Lesion type: [place] artery [place] vs. transplanted heart: [place] heart Associated angina: without angina Hyperlipidemia E78.2 Hyperlipidemia type: mixed hyperlipidemia Ischemic cardiomyopathy I25.5 Hypertension I10 Hypertension type: essential hypertension Excoriation of multiple sites T07.XXXA Physical deconditioning R53.81 DVT prophylaxis Z29.9 (1) Type II diabetes mellitus Diabetes mellitus [facility] insulin use: without [facility] use Diabetes mellitus complication status: with circulatory complication Diabetes mellitus complication detail: with other circulatory complications Qualified Code(s): E11.59 - Type 2 diabetes mellitus with other circulatory complications (2) CAD (coronary artery disease) Coronary Disease-Associated Artery/Lesion type: [place] artery [place] vs. transplanted heart: [place] heart Associated angina: without angina Qualified Code(s): I25.10 - Atherosclerotic heart disease of [place] coronary artery without angina pectoris (3) Hyperlipidemia Hyperlipidemia type: mixed hyperlipidemia Qualified Code(s): E78.2 - Mixed hyperlipidemia (4) Hypertension Hypertension type: essential hypertension Qualified Code(s): I10 - Essential (primary) hypertension
--- NOTE | 2019-05-11 17:50 | Cardiology Progress Note ---
Date of Service May 11, 2019 Assessment & Plan (1) CHF (congestive heart failure): He continues to have a brisk diuresis on his current dose of Lasix. His volume status is currently good. I agree with reducing his lasix and converting to an oral dose in preparation for discharge. (2) CAD (coronary artery disease): No symptoms. (3) Ventricular tachycardia: No recurrent VT. Successful implantation of single-chamber ICD without complication. Patient should keep the wound dry for at least a week. He should refrain from lifting the left arm above the shoulder for 6 weeks. I will arrange for follow- up in our clinic next week for wound evaluation. (4) Atrial fibrillation: He seems to have developed atrial fibrillation. No symptoms. Surprisingly good rate control. I think the only intervention required is initiation of anticoagulation. I would stop plavix, continue aspirin ans start NOAC Subjective Patient feeling well with the exception of his foot pain. Minimal pain at rest, but pain with ambulation. No CP. NO dyspnea. Review of Systems Review of Systems: per HPI Physical Exam Physical Exam: The patient is alert and oriented. Mood and affect appeared normal. He answered all questions appropriately. HEENT: Pupils are equal and reactive to light and accommodation. Extraocular movements are intact. The sclerae are anicteric. Neuro: Cranial nerves intact Neck: Patient's neck is supple. He has palpable carotid pulses bilaterally without bruits on auscultation. There is no evidence of jugular venous distention. The thyroid is not enlarged. Lungs: Apices clear. Good aeration both lungs. Chest: Device implant site with mild ecchymosis but no significant hematoma or erythema. No drainage. Cardiac: Heart demonstrates a regular rate and rhythm. Normal S1 and S2. No murmurs on examination. Pulses: The patient has palpable radial pulses bilaterally that are equal in intensity Extremities: There was no evidence of hypoperfusion. There is no cyanosis or clubbing. No edema. Skin: I did not appreciate any rashes on examination today. Results & Data Vital Signs (Past 12 Hours) Vital Signs Temp Pulse Pulse Resp BP BP Pulse Ox 05/11/19 16:06 86 110/71 05/11/19 16:00 86 05/11/19 15:08 36.3 C L 89 20 93/57 L 92 05/11/19 11:58 36.6 C 87 20 94/67 L 95 05/11/19 07:23 36.4 C L 94 H 20 118/80 94 Laboratory Results Abnormal Lab Results 05/10/19 05/11/19 05/11/19 20:24 06:50 06:50 WBC 8.53 RBC 4.31 L Hgb 12.6 L Hct 38.5 L MCV 89.3 MCH 29.2 MCHC 32.7 RDW Std Deviation 61.3 H RDW Coeff of [place] 18.6 H Plt Count 239 MPV 10.6 H Sodium 136 Potassium 4.0 Chloride 101 Carbon Dioxide 30 Anion Gap 5.0 BUN 26 H Creatinine 1.10 Est Cr Clr Drug Dosing 55.3 Est GFR ( Amer) 75.2 Est GFR (Non-Af Amer) 64.9 BUN/Creatinine Ratio 23.4 H Glucose 147 H POC Glucose 138 H Calcium 9.0 05/11/19 05/11/19 05/11/19 07:22 11:36 16:16 WBC RBC Hgb Hct MCV MCH MCHC RDW Std Deviation RDW Coeff of Kimberlee Plt Count MPV Sodium Potassium Chloride Carbon Dioxide Anion Gap BUN Creatinine Est Cr Clr Drug Dosing Est GFR ( Amer) Est GFR (Non-Af Amer) BUN/Creatinine Ratio Glucose POC Glucose 166 H 181 H 147 H Calcium ECG Additional Comments: EKG and telemetry suggest a conversion to AF (1) CAD (coronary artery disease) Coronary Disease-Associated Artery/Lesion type: [place] artery [place] vs. transplanted heart: [place] heart Associated angina: without angina Qualified Code(s): I25.10 - Atherosclerotic heart disease of [place] coronary artery without angina pectoris
--- NOTE | 2019-05-11 18:33 | Electrocardiogram Report ---
Test Reason : Blood Pressure : / mmHG Vent. Rate : 080 BPM Atrial Rate : 357 BPM P-R Int : 000 ms QRS Dur : 082 ms QT Int : 378 ms P-R-T Axes : 000 -60 116 degrees QTc Int : 435 ms Atrial fibrillation Left axis deviation Anterior infarct (cited on or before 26-NOV-2018) Abnormal ECG When compared with ECG of 02-MAY-2019 16:12, Atrial fibrillation has replaced sinus rhythm Confirmed by Hiro Yepez ([id number]) on 05/11/2019 6:33:25 PM Referred By: Aidee Gomez Confirmed By:Christiano Yepez
[2019-05-11] MEDS: TAMSULOSIN HCL 0.4 MG CAP PO SCH (20:57)
[2019-05-11] MEDS: APIXABAN 5 MG TABLET PO SCH (20:57)
[2019-05-12 06:59] LABS: BUN Creatinine Ratio 30.6 (10-20); Calcium 8.8 mg/dl (8.5-10.1); Creatinine Clr Calc Pharmacy 67.6 ml/min; Est GFR (African American) 95.8; Est GFR (Non-African American) 82.7; Potassium 3.9 mmol/L (3.5-5.1)
[2019-05-12] MEDS: INSULIN ASPART 100 UNITS/ML 3 ML PEN SC SCH ×4 (08:02→21:10)
[2019-05-12] MEDS: METOPROLOL SUCC 50MG EXT REL TAB PO SCH (08:04)
[2019-05-12] MEDS: FUROSEMIDE 40 MG TAB PO SCH (08:04)
[2019-05-12] MEDS: ASPIRIN 81 MG ECTAB PO SCH (08:04)
[2019-05-12] MEDS: APIXABAN 5 MG TABLET PO SCH ×2 (08:05→21:11)
[2019-05-12] MEDS: SACUBITRIL-VALSARTAN 24-26 MG TAB PO SCH ×2 (08:05→21:11)
[2019-05-12] MEDS: POTASSIUM CHLORIDE 20 MEQ TABCR PO SCH (08:05)
[2019-05-12] MEDS: ATORVASTATIN 40 MG TAB PO SCH (08:05)
[2019-05-12] MEDS: ISOSORBIDE MONO EXTENDED REL 30 MG TABCR PO SCH (08:06)
--- NOTE | 2019-05-12 11:12 | Pharmacy Report ---
Pharmacy Glycemic Sign Off Nt - Date of Service May 12, 2019 - Assessment & Plan ASSESSMENT: * Pharmacy was consulted by Dr. Goins on 05/08/2019 for glycemic control and to write orders per [facility] inpatient glycemic control protocol. * Major changes made by pharmacy to antidiabetic regimen include: * Holding outpatient oral DM medications * Start inpatient basal-bolus regimen to account for steroid-induced hypoglycemia * Patient has been receiving/requiring ~23 units of bolus insulin per day for adequate glycemic control * BSGs ranging 110 - 181 mg/dl * Regimen has only required minor adjustments over the past 48hrs to achieve this level of control * Do not anticipate further changes in patient status that would quickly deteriorate glycemic control (i.e. patient to be NPO for upcoming procedure, steroids tapering, starting tube feedings, etc). * Please see recommendations for outpatient antidiabetic regimen below. PLAN FOR INPATIENT GLYCEMIC CONTROL: No changes needed to current regimen. * Continue NovoLog per scale ACHS/Q6hrs while NPO * Goal range = 110 - 140 mg/dl * CF = 30 mg/dl/unit * CR = 1 unit for ever 7 g CHO consumed * Pharmacy is signing off of glycemic consult and will no longer be making adj ustments to inpatient regimen. Please feel free to re-consult if needed. Thank you. DISCHARGE RECOMMENDATIONS: * A1c 8.5% on 05/03/2019 * Goal A1c < 8% based on age and comorbidities * Agree with CDE recommendations * Resume Metformin 1000 mg PO BIDM upon discharge * Patient would likely benefit from a SGLT2i with evidence of reducing HF progression such as Jardiance 10 mg PO Daily * Requires prescriptions for OneTouch Verio test strips and OneTouch Delica lancets upon discharge to test 1x/day
[2019-05-12] MEDS: TRIAMCINOLONE ACET 0.1% CR 15 GM TUBE TOP SCH ×2 (12:14→21:11)
--- NOTE | 2019-05-12 12:54 | Pharmacy Report ---
Pharmacy Glycemic Sign Off Nt - Date of Service May 12, 2019 - Assessment & Plan ASSESSMENT: * Blood sugars well controlled for the past 24-48 hours * No significant changes to insulin regimen in past 24-48 hours * No significant changes to stressors anticipated * Spoke with NIKITA Livingston for pharmacy to sign off PLAN FOR INPATIENT GLYCEMIC CONTROL: No changes needed to current regimen. * Continue NovoLog per scale ACHS/Q6hrs while NPO * Goal range = 110 - 140 mg/dl * CF = 30 mg/dl/unit * CR = 1 unit for every 7 g CHO consumed * Pharmacy is signing off of glycemic consult and will no longer be making adjustments to inpatient regimen. Please feel free to re-consult if needed. Thank you. DISCHARGE RECOMMENDATIONS: * Patient doesn't require any insulin at home. * Resume outpatient oral medications
[2019-05-12] MEDS: TAMSULOSIN HCL 0.4 MG CAP PO SCH (21:11)
--- NOTE | 2019-05-12 22:58 | Hospitalist Progress Note ---
Date of Service May 12, 2019 Assessment & Plan (1) Acute systolic (congestive) heart failure: Acute on chronic systolic dysfunction. Patient has had history of EF 30-35%; currently 25-30%. Currently appears dry. Suspect sudden change due to hernandez cath insertion and pleural effusion drained. Reduce to Lasix 40mg PO daily tomorrow. Appreciate cardiology recommendations regarding this. Patient previously incontinent and in urinary retention therefore I&Os inaccurate, now more accurate after hernandez cath inserted for urinary retention. Patient has been negative over past 24 hours. Continue Metoprolol succinate + Entresto -> unable to increase with current BP. Patient is ready for discharge but is pending placement due to poor PT/OT results on 05/11. (2) Pleural effusion, right: Thoracocentesis 05/09 1.8L, suspect secondary to heart failure in setting of urinary retention. Pending cytology and microbiology. No organisms on gram stain. (3) Hypoxia: Secondary to pleural effusion/heart failure, now resolved (4) Ventricular tachycardia: Sustained 30 second episode in setting of hypomagnesemia and ischemic cardiomyopathy on 05/04. No recurrent episodes. Appreciate cardiology consult. Patient elected to have ICD which was placed 05/07 for ischemic cardiomyopathy with HFrEF. (5) Paroxysmal atrial flutter: Occurred overnight. Discussed with Dr Yepez. Rate controlled on metoprolol already. Will start on Eliquis for anticoagulation and discontinue clopidogrel. (6) Hypokalemia: Given sustained VT episode will aim K > 4. (7) Hypomagnesemia: Aim Mg > 2. (8) Type II diabetes mellitus: HbA1c 8.5 this admission Appreciate pharmacy glycemic control with Novolog correction and carb coverage (9) Urinary retention: Failed trial without catheter overnight. PVR >600ml bladder scan today. Hernandez cath placed. Will remain on tamsulosin (newly started this admission). Needs to follow up with urology outpatient. (10) CAD (coronary artery disease): s/p DC with stents 12/2017 Aspirin/Eliquis/atorvastatin/Imdur (11) Hyperlipidemia: continue atorvastatin 80mg PO daily (12) Ischemic cardiomyopathy: ECHO LVEF 25-35% with wall motion abnormalities (13) Hypertension: Low normal but asymptomatic. Hopefully will improve with reduce lasix. (14) Excoriation of multiple sites: Significantly improved since admission (15) Physical deconditioning: Continue PT and OT. Likely to need rehabilitation on discharge. (16) DVT prophylaxis: Start Eliquis Admission and Anticipated Discharge Date Admission Date: May 02, 2019 Anticipated date of discharge: 05/12/19 Subjective Patient reports no new symptoms today. Review of Systems Review of Systems: All systems reviewed & are unremarkable except as noted in HPI & below Physical Exam Physical Exam: Constitutional: WD/WN, vitals as above Eyes: normal visual gunter by confrontation and + anicteric sclerae Neck: normal visual inspection and trachea midline Respiratory: normal respiratory effort; no respiratory distress Auscultation: + crackles; no wheezes Cardiovascular: Rate/Rhythm: regular rate and regular rhythm Gastrointestinal (Abdomen): Inspection/Auscultation: abdomen not distended Per cussion/Palpation: abdomen soft; abdomen nontender Musculoskeletal: Head/Neck/Chest: normocephalic and head atraumatic negative for edema, peripheral pulses intact Skin: no rashes, warm and dry Neurologic: awake; not confused Speech / Cognition: normal speech Psychiatric: A+Ox3, euthymic affect Results & Data ([facility]) Vital Signs (Past 12 Hours) Vital Signs Temp Pulse Pulse Resp BP BP Pulse Ox 05/12/19 21:39 37.1 C 79 20 101/64 95 05/12/19 19:40 36.6 C 76 19 106/69 96 05/12/19 15:31 84 05/12/19 15:26 36.4 C L 91 H 20 102/69 90 05/12/19 11:46 36.4 C L 84 20 92/56 L 91 PG Care Time/CCT Total # of Minutes Spent Total Time Spent with Patient: Total time spent is greater than 50% in coordination of care (as documented) at patient's floor/unit and/or counseling patient: Coding Level of Care Code 02558 Subseq Hosp Care Lvl 3 Diagnoses Acute systolic (congestive) heart failure I50.21 Pleural effusion, right J90 Hypoxia R09.02 Ventricular tachycardia I47.2 Paroxysmal atrial flutter I48.92 Hypokalemia E87.6 Hypomagnesemia E83.42 Type II diabetes mellitus E11.59 Diabetes mellitus complication detail: with other circulatory complications Diabetes mellitus complication status: with circulatory complication Diabetes mellitus [facility] insulin use: without [facility] use Urinary retention R33.9 CAD (coronary artery disease) I25.10 Associated angina: without angina Coronary Disease-Associated Artery/Lesion type: [place] artery [place] vs. transplanted heart: [place] heart Hyperlipidemia E78.2 Hyperlipidemia type: mixed hyperlipidemia Ischemic cardiomyopathy I25.5 Hypertension I10 Hypertension type: essential hypertension Excoriation of multiple sites T07.XXXA Physical deconditioning R53.81 DVT prophylaxis Z29.9 Time Spent (min) 35 Comment reviewed chart (1) Type II diabetes mellitus Diabetes mellitus complication detail: with other circulatory complications Diabetes mellitus complication status: with circulatory complication Diabetes mellitus [facility] insulin use: without intermission coordinator use Qualified Code(s): E11.59 - Type 2 diabetes mellitus with other circulatory complications (2) CAD (coronary artery disease) Associated angina: without angina Coronary Disease-Associated Artery/Lesion type: [place] artery [place] vs. transplanted heart: [place] heart Qualified Code(s): I25.10 - Atherosclerotic heart disease of [place] coronary artery without angina pectoris (3) Hyperlipidemia Hyperlipidemia type: mixed hyperlipidemia Qualified Code(s): E78.2 - Mixed hyperlipidemia (4) Hypertension Hypertension type: essential hypertension Qualified Code(s): I10 - Essential (primary) hypertension
[2019-05-13] MEDS: POTASSIUM CHLORIDE 20 MEQ TABCR PO SCH (08:37)
[2019-05-13] MEDS: METOPROLOL SUCC 50MG EXT REL TAB PO SCH (08:37)
[2019-05-13] MEDS: SACUBITRIL-VALSARTAN 24-26 MG TAB PO SCH ×2 (08:37→20:34)
[2019-05-13] MEDS: TRIAMCINOLONE ACET 0.1% CR 15 GM TUBE TOP SCH ×2 (08:38→20:34)
[2019-05-13] MEDS: ASPIRIN 81 MG ECTAB PO SCH (08:38)
[2019-05-13] MEDS: FUROSEMIDE 40 MG TAB PO SCH (08:38)
[2019-05-13] MEDS: ISOSORBIDE MONO EXTENDED REL 30 MG TABCR PO SCH (08:38)
[2019-05-13] MEDS: ATORVASTATIN 40 MG TAB PO SCH (08:38)
[2019-05-13] MEDS: APIXABAN 5 MG TABLET PO SCH ×2 (08:38→20:34)
[2019-05-13] MEDS: INSULIN ASPART 100 UNITS/ML 3 ML PEN SC SCH ×4 (08:40→20:35)
--- NOTE | 2019-05-13 11:30 | Cardiology Progress Note ---
Date of Service May 13, 2019 Assessment & Plan (1) CHF (congestive heart failure): He continues to diurese on his current dose of Lasix.He appears to be euvolemic or possibly even mildly on the hypovolemic side. Given the measured urine output, I think we could even reduce his Lasix dose further to 20 milligrams daily by mouth. Continue other medications including Toprol and Entresto (2) CAD (coronary artery disease): No symptoms. (3) Ventricular tachycardia: No recurrent VT. Successful implantation of single-chamber ICD without complication. This appears to be healing without complication. Patient will follow up in our clinic in approximately 1 months time. (4) Atrial fibrillation: Adequate rate control on current medical regimen. Currently on appropriate anticoagulation. At this point the patient appears to be stable from a cardiovascular standpoint. I will sign off. Please contact me with additional questions or new developments. Subjective S Plan the patient claims feeling better. He was able to ambulate without significant foot discomfort. He feels that his strength is improved. He denied breathing difficulty. No pain at the device implant site in left pectoral area. Review of Systems Review of Systems: Per HPI Physical Exam Physical Exam: The patient is alert and oriented. Mood and affect appeared normal. He answered all questions appropriately. HEENT: Pupils are equal and reactive to light and accommodation. Extraocular movements are intact. The sclerae are anicteric. Neuro: Cranial nerves intact Lungs: Apices clear. Good aeration both lungs. Chest: Device implant site with mild ecchymosis but no significant hematoma or erythema. No drainage. Steri-Strips in place Cardiac: Heart demonstrates a regular rate and rhythm. Normal S1 and S2. No murmurs on examination. Pulses: The patient has palpable radial pulses bilaterally that are equal in intensity Extremities: There was no evidence of hypoperfusion. There is no cyanosis or clubbing. No edema. Skin: I did not appreciate any rashes on examination today. Results & Data Vital Signs (Past 12 Hours) Vital Signs Temp Pulse Pulse Resp BP BP Pulse Ox 05/13/19 11:24 36.5 C 74 16 99/66 L 96 05/13/19 07:24 36.7 C 78 18 139/69 91 05/13/19 07:13 75 05/13/19 04:34 36.8 C 76 19 110/72 97 05/12/19 23:29 36.9 C 84 20 98/68 L 98 (1) CAD (coronary artery disease) Coronary Disease-Associated Artery/Lesion type: [place] artery [place] vs. transplanted heart: [place] heart Associated angina: without angina Qualified Code(s): I25.10 - Atherosclerotic heart disease of [place] coronary artery without angina pectoris
[2019-05-13] MEDS: TAMSULOSIN HCL 0.4 MG CAP PO SCH (20:34)
--- NOTE | 2019-05-13 22:35 | Hospitalist Progress Note ---
Date of Service May 13, 2019 Assessment & Plan (1) Acute systolic (congestive) heart failure: Acute on chronic systolic dysfunction. Patient has had history of EF 30-35%; currently 25-30%. Currently appears dry. Suspect sudden change due to hernandez cath insertion and pleural effusion drained. Reduce to Lasix 20mg PO daily tomorrow (05/12). Appreciate cardiology recommendations regarding this. Patient previously incontinent and in urinary retention therefore I&Os inaccurate, now more accurate after hernandez cath inserted for urinary retention. Patient has been negative over past 24 hours. Continue Metoprolol succinate + Entresto -> unable to increase with current BP. Patient is ready for discharge but is pending placement due to poor PT/OT results on 05/11. (2) Pleural effusion, right: Thoracocentesis 05/09 1.8L, suspect secondary to heart failure in setting of urinary retention. Pending cytology and microbiology. No organisms on gram stain. (3) Hypoxia: Secondary to pleural effusion/heart failure, now resolved (4) Ventricular tachycardia: Sustained 30 second episode in setting of hypomagnesemia and ischemic cardiomyopathy on 05/04. No recurrent episodes. Appreciate cardiology consult. Patient elected to have ICD which was placed 05/07 for ischemic cardiomyopathy with HFrEF. (5) Paroxysmal atrial flutter: Occurred overnight. Discussed with Dr Yepez. Rate controlled on metoprolol already. Will start on Eliquis for anticoagulation and discontinue clopidogrel. (6) Hypokalemia: Given sustained VT episode will aim K > 4. (7) Hypomagnesemia: Aim Mg > 2. (8) Type II diabetes mellitus: HbA1c 8.5 this admission Appreciate pharmacy glycemic control with Novolog correction and carb coverage (9) Urinary retention: Failed trial without catheter overnight. PVR >600ml bladder scan today. Hernandez cath placed. Will remain on tamsulosin (newly started this admission). Needs to follow up with urology outpatient. (10) CAD (coronary artery disease): s/p MD with stents 12/2017 Aspirin/Eliquis/atorvastatin/Imdur (11) Hyperlipidemia: continue atorvastatin 80mg PO daily (12) Ischemic cardiomyopathy: ECHO LVEF 25-35% with wall motion abnormalities (13) Hypertension: Low normal but asymptomatic. Hopefully will improve with reduce lasix. (14) Excoriation of multiple sites: Significantly improved since admission (15) Physical deconditioning: Continue PT and OT. Likely to need rehabilitation on discharge. (16) DVT prophylaxis: Start Eliquis Pending placement Admission and Anticipated Discharge Date Admission Date: May 02, 2019 Anticipated date of discharge: 05/12/19 Subjective Patient has no new complaints. Review of Systems Review of Systems: All systems reviewed & are unremarkable except as noted in HPI & below Physical Exam Physical Exam: Constitutional: WD/WN, vitals as above Eyes: normal visual gunter by confrontation and + anicteric sclerae Neck: normal visual inspection and trachea midline Respiratory: normal respiratory effort; no respiratory distress Auscultation: + crackles; no wheezes Cardiovascular: Rate/Rhythm: regular rate and regular rhythm Gastrointestinal (Abdomen): Inspection/Auscultation: abdomen not distended Percussion/Palpation: abdomen soft; abdomen nontender Musculoskeletal: Head/Neck/Chest: normocephalic and head atraumatic negative for edema, peripheral pulses intact Skin: no rashes, warm and dry Neurologic: awake; not confused Speech / Cognition: normal speech Psychiatric: A+Ox3, euthymic affect Results & Data ([facility]) Vital Signs (Past 12 Hours) Vital Signs Temp Pulse Resp BP Pulse Ox 05/13/19 20:00 36.4 C L 72 19 117/76 92 05/13/19 19:03 36.3 C L 83 17 93/59 L 96 05/13/19 15:15 36.4 C L 81 19 94/59 L 96 05/13/19 11:24 36.5 C 74 16 99/66 L 96 PG Care Time/CCT Total # of Minutes Spent Total Time Spent with Patient: Total time spent is greater than 50% in coordination of care (as documented) at patient's floor/unit and/or counseling patient: Coding Level of Care Code 94558 Subseq Hosp Care Lvl 2 Diagnoses Acute systolic (congestive) heart failure I50.21 Pleural effusion, right J90 Hypoxia R09.02 Ventricular tachycardia I47.2 Paroxysmal atrial flutter I48.92 Hypokalemia E87.6 Hypomagnesemia E83.42 Type II diabetes mellitus E11.59 Diabetes mellitus complication detail: with other circulatory complications Diabetes mellitus complication status: with circulatory complication Diabetes mellitus ferry terminal agent insulin use: without residential use Urinary retention R33.9 CAD (coronary artery disease) I25.10 Associated angina: without angina Coronary Disease-Associated Artery/Lesion type: [place] artery [place] vs. transplanted heart: [place] heart Hyperlipidemia E78.2 Hyperlipidemia type: mixed hyperlipidemia Ischemic cardiomyopathy I25.5 Hypertension I10 Hypertension type: essential hypertension Excoriation of multiple sites T07.XXXA Physical deconditioning R53.81 DVT prophylaxis Z29.9 Time Spent (min) 25 (1) Type II diabetes mellitus Diabetes mellitus complication detail: with other circulatory complications Diabetes mellitus complication status: with circulatory complication Diabetes mellitus ferry terminal agent insulin use: without residential use Qualified Code(s): E11.59 - Type 2 diabetes mellitus with other circulatory complications (2) CAD (coronary artery disease) Associated angina: without angina Coronary Disease-Associated Artery/Lesion type: [place] artery [place] vs. transplanted heart: [place] heart Qualified Code(s): I25.10 - Atherosclerotic heart disease of [place] coronary artery without angina pectoris (3) Hyperlipidemia Hyperlipidemia type: mixed hyperlipidemia Qualified Code(s): E78.2 - Mixed hyperlipidemia (4) Hypertension Hypertension type: essential hypertension Qualified Code(s): I10 - Essential (primary) hypertension
[2019-05-14] MEDS: METOPROLOL SUCC 50MG EXT REL TAB PO SCH (07:59)
[2019-05-14] MEDS: ISOSORBIDE MONO EXTENDED REL 30 MG TABCR PO SCH (08:00)
[2019-05-14] MEDS: APIXABAN 5 MG TABLET PO SCH (08:00)
[2019-05-14] MEDS: ATORVASTATIN 40 MG TAB PO SCH (08:00)
[2019-05-14] MEDS: POTASSIUM CHLORIDE 20 MEQ TABCR PO SCH (08:00)
[2019-05-14] MEDS: TRIAMCINOLONE ACET 0.1% CR 15 GM TUBE TOP SCH (08:00)
[2019-05-14] MEDS: ASPIRIN 81 MG ECTAB PO SCH (08:01)
[2019-05-14] MEDS: SACUBITRIL-VALSARTAN 24-26 MG TAB PO SCH (08:01)
[2019-05-14] MEDS: INSULIN ASPART 100 UNITS/ML 3 ML PEN SC SCH ×2 (08:02→12:48)
[2019-05-14] MEDS ORDERED: FUROSEMIDE 20 MG TAB PO SCH (09:00)
--- NOTE | 2019-05-20 22:50 | Discharge Summary ---
Date of Service May 14, 2019 Admission HPI Per Admitting Provider 74 y/o M c/o SOB. Pt states this has been getting worse over the last few weeks and is mostly with exertion. He states that sometimes he can get up and down stairs without issue, but other times it is a problem. He is having occasional SOB at rest, but not often. No chest pain. He does get LE swelling, but not much at present. Some nausea today, but no emesis. He had diarrhea x2, but not in the last few days. He states his appetite is low and his PO intake has been down. He has gained weight despite this. He takes his lasix as scheduled and does not miss doses. He has felt overall week the last few days. Pt denies fever, abd pain, LE pain or swelling. Pt was noted to be 88% on RA on arrival. He states that he feels a bit better with O2 at present, but has not been OOB. Principal Diagnosis Acute systolic CHF Discharge Exam Constitutional: WD/WN, vitals as above Eyes: normal visual gunter by confrontation and + anicteric sclerae Neck: normal visual inspection and trachea midline Respiratory: normal respiratory effort; no respiratory distress Auscultation: + crackles; no wheezes Cardiovascular: Rate/Rhythm: regular rate and regular rhythm Gastrointestinal (Abdomen): Inspection/Auscultation: abdomen not distended Percussion/Palpation: abdomen soft; abdomen nontender Musculoskeletal: Head/Neck/Chest: normocephalic and head atraumatic negative for edema, peripheral pulses intact Skin: no rashes, warm and dry Neurologic: awake; not confused Speech / Cognition: normal speech Psychiatric: A+Ox3, euthymic affect Discharge Data Allergies Allergy/AdvReac Type Severity Reaction Status Date / Time No Known Drug Allergies Allergy Verified 05/02/19 10:39 Consultations 05/02/19 18:09 ED Decision to Admit Stat 05/02/19 23:53 Consult Case Management - Discharge Planning Routine [facility] CHF Program Referral Routine 05/04/19 20:41 Consult Cardiology Routine 05/09/19 11:30 Consult Pulmonology Routine Procedures Performed Operation Date: 05/08/19 14:00 Actual Procedures p ICD Insertion Single or Dual - David Yepez MD Ordered Studies 05/08/19 12:13 CL Cath Imgs for PACS use only Routine 05/09/19 13:06 US point of care ultrasound Urgent Hospital Course (1) Acute systolic (congestive) heart failure: Acute on chronic systolic dysfunction. Patient has had history of EF 30-35%; currently 25-30%. Currently appears dry. Suspect sudden change due to hernandez cath insertion and pleural effusion drained. Reduce to Lasix 20mg PO daily tomorrow (05/12). Appreciate cardiology recommendations regarding this. Patient previously incontinent and in urinary retention therefore I&Os inaccurate, now more accurate after hernandez cath inserted for urinary retention. Patient has been negative over past 24 hours. Continue Metoprolol succinate + Entresto -> unable to increase with current BP. Patient is ready for discharge, and going to a SNF due to poor PT/OT results on 05/11. (2) Pleural effusion, right: Thoracocentesis 05/09 1.8L, suspect secondary to heart failure in setting of urinary retention. Pending cytology and microbiology. No organisms on gram stain. (3) Hypoxia: Secondary to pleural effusion/heart failure, now resolved (4) Ventricular tachycardia: Sustained 30 second episode in setting of hypomagnesemia and ischemic cardiomyopathy on 05/04. No recurrent episodes. Appreciate cardiology consult. Patient elected to have ICD which was placed 05/07 for ischemic cardiomyopathy with HFrEF. (5) Paroxysmal atrial flutter: Occurred overnight. Discussed with Dr Yepez. Rate controlled on metoprolol already. Will start on Eliquis for anticoagulation and discontinue clopidogrel. (6) Hypokalemia: Given sustained VT episode will aim K > 4. (7) Hypomagnesemia: Aim Mg > 2. (8) Type II diabetes mellitus: HbA1c 8.5 this admission Appreciate pharmacy glycemic control with Novolog correction and carb coverage (9) Urinary retention: Failed trial without catheter overnight. PVR >600ml bladder scan today. Hernandez cath placed. Will remain on tamsulosin (newly started this admission). Needs to follow up with urology outpatient. (10) CAD (coronary artery disease): s/p [place] with stents 12/2017 Aspirin/Eliquis/atorvastatin/Imdur (11) Hyperlipidemia: continue atorvastatin 80mg PO daily (12) Ischemic cardiomyopathy: ECHO LVEF 25-35% with wall motion abnormalities (13) Hypertension: Low normal but asymptomatic. Hopefully will improve with reduce lasix. (14) Excoriation of multiple sites: Significantly improved since admission (15) Physical deconditioning: Continue PT and OT. Likely to need rehabilitation on discharge. (16) DVT prophylaxis: Start Eliquis Total Time Total Time Spent Total Time Spent (In Minutes): 32 Total Time Includes: Examination of the Patient, Discharge Planning and Medica tion Reconciliation Discharge Plan Discharge Items Patient Disposition: Transfer Care Home Fac Reason For Visit: CHF EXACERBATION Discharge Diagnosis: CHF exacerbation Activity: Resume your previous activity Non-emergency contact: Primary Care Provider Call non-emergency contact if: you have any medication questions Follow-up/Referrals: Aidee Gomez CRNP [Primary Care Provider] - Diet: Carb Consistent or DM2 Addtl Attending Provider Instructions: You have been hospitalized for an acute medical problem. During your stay at [facility], we have made an effort to correct the problem that brought you to the hospital while keeping you as comfortable as possible. Medications were used to bring your condition under control and your discharge instructions will include directions for any medications you should take after leaving the hospital. Please make sure you see your Primary Care Provider as part of your follow up plan. Followup with Cardio clinic in 1 month. Call 911 and go to the Emergency Room if: * You have tightness or pain in your chest that does not go away with rest or Nitroglycerin * You are very short of breath even with rest Call your doctor if any of the following symptoms or problems start or get worse: * Shortness of breath or difficulty breathing * Wake up at night short of breath * Chest pain * Cough * Swelling of your hands, fee, or legs * More fatigued or tired with your normal activity * Palpitations - sudden fast heart beats WEIGHT * Weigh yourself every morning after using the bathroom. * Use the same scale. * Wear the same amount of clothing. * Write your weight down on your chart. * Call your doctor if you gain more than 2-3 pounds in 1-2 days. MEDICATIONS * Use this discharge instruction sheet for instructions. * Take your medications at the time your doctor ordered. * Do not skip a dose of your medicines. * If you miss a dose of medicine, take as soon as possible, but DO NOT DOUBLE A DOSE. * Read your medicine information when you get home. * Know all of the side effects of your medicine. * Call your doctor's office if you have any side effects. * Be sure all of your doctors know what medicine and herbs you take (including cold, flu, and herbal medicine). * Pain Medicine: If you do not get relief from your pain, please call your doctor for help. Take the following with you to your follow-up doctor appointments: * Weight Chart * Medication List * List of questions Do not drink excessive alcohol, beer or wine. Pending Studies at Discharge: No Stand-Alone Forms: My [employer], Smoking Cessation Skilled Items Patient informed of condition?: No DNR: No Discharge Level of Care: Skilled Communicable Disease: No Discharge Prognosis: Stable Lines: None Urinary Catheter: Yes Medications and DC Order Prescriptions: New tamsulosin 0.4 mg Capsule 0.4 mg PO HS Qty: 30 RF: 0 furosemide 20 mg Tablet 20 mg PO QAM Qty: 0 RF: 0 Eliquis 5 mg Tablet 5 mg PO BID Qty: 60 RF: 0 Continued atorvastatin [Lipitor] 80 mg tablet 80 mg PO DAILY Qty: 90 RF: 1 metoprolol succinate [Toprol XL] 100 mg tablet extended release 24 hr 100 mg PO DAILY Qty: 90 RF: 1 metformin 500 mg tablet extended release 24 hr 1,000 mg PO BID Qty: 360 RF: 1 isosorbide mononitrate 30 mg tablet extended release 24 hr 30 mg PO DAILY Qty: 90 RF: 3 triamcinolone acetonide 0.1 % cream 1 appln TOP BID Qty: 30 RF: 3 Entresto 24-26 mg tablet 1 tab PO BID Qty: 60 RF: 4 nitroglycerin [Nitrostat] 0.4 mg Tablet, Sublingual 0.4 mg Sublingual Q5M PRN (Reason: chest pain) Qty: 20 RF: 0 aspirin [Ecotrin Low Strength] 81 mg Tablet,Delayed Release (Dr/Ec) 81 mg PO QAM Qty: 90 RF: 3 Discontinued clopidogrel 75 mg tablet 75 mg PO DAILY Qty: 90 RF: 3 furosemide 40 mg tablet 40 mg PO DAILY RF: 0 Discharge Orders: Discharge Order (Routine); Ordered 05/14/19 Ordered By: Hoang Smith Admission Data Admit Date/Time: 05/02/19 20:11 Attending Provider: Hoang Smith Admit Provider: Paty Jay Primary Care Provider: Aidee Gomez Other Providers: David Yepez ; Son Saldaña Other Interventions: Discharge Summary Assessment (RN) Last Done: 05/14/19 12:41 DC Date/Time DO NOT enter until pt leaves facility: 05/14/19 13:07 Coding Level of Care Code D/C Day Management >30 mins Diagnoses Acute systolic (congestive) heart failure I50.21 Pleural effusion, right J90 Hypoxia R09.02 Ventricular tachycardia I47.2 Paroxysmal atrial flutter I48.92 Hypokalemia E87.6 Hypomagnesemia E83.42 Type II diabetes mellitus E11.59 Diabetes mellitus manager terminal insulin use: without long-term use Diabetes mellitus complication status: with circulatory complication Diabetes mellitus complication detail: with other circulatory complication s Urinary retention R33.9 CAD (coronary artery disease) I25.10 Coronary Disease-Associated Artery/Lesion type: [place] artery [place] vs. transplanted heart: [place] heart Associated angina: without angina Hyperlipidemia E78.2 Hyperlipidemia type: mixed hyperlipidemia Ischemic cardiomyopathy I25.5 Hypertension I10 Hypertension type: essential hypertension Excoriation of multiple sites T07.XXXA Physical deconditioning R53.81 DVT prophylaxis Z29.9 Time Spent (min) 32
== END 2019-05-14 13:07 | DRG 226 ==
LOC: ED 15:20 → SUATTDRO 20:11 → 2W 20:11 → 2S 05-08 14:05 → 2W 05-11 14:50
PROC: EPB.ICD (2019-05-08 14:00)